=== PATIENT | female | born 1930 | race Caucasian/White ===

== ENCOUNTER 2017-05-15 10:57 | Observation (INO) ==
[2017-05-15] MEDS ORDERED: Ipratropium/Albuterol Neb 3 ML IH ONE (11:18)
--- NOTE | 2017-05-15 11:22 | Emergency Department Note ---
Disposition Clinical Impression: Acute exacerbation of chronic obstructive airways disease Disposition: Admitted As Inpatient Condition: Undetermined Referrals: Ian Muse Jr, MD [Primary Care Provider] - Forms: ED Satisfaction Letter Time of Disposition: 15:00 SOB HPI - General Chief Complaint: ED Shortness of Breath/Dyspnea Stated Complaint: MAT, weakness Time Seen by Provider: 05/15/17 11:11 Source: patient Mode of arrival: wheelchair Limitations: no limitations Nursing Notes Reviewed: Yes Vital Signs Reviewed: Yes - History of Present Illness 86-year-old female history of COPD, CAD, arrives [facility] emergency department complaining of difficulty breathing and generalized weakness that started 3-4 days ago but acutely worsened this morning. The patient's granddaughter states that while going up to her house the patient I want to get out of bed. Patient states she has continued to experience difficulty in breathing since then. She is on room air at 91%. She has been using her albuterol inhalers as prescribed but states that she has been using a more over the past few days. The patient denies any active chest pain, nausea, vomiting, abdominal pain, focalized weakness. She denies any fevers at home. The patient was noted to have pneumonia in the past and was septic when she came to the emergency department. The granddaughter states that she is worried that this is similar to when she first came here. The patient's granddaughter states that she wanted to catch it early. The patient denies any other complaints at this time other than a mild amount of dyspnea. The patient is not tachycardic, is afebrile, mildly hypoxic on room air. Pt Subjective Complaint: shortness of breath Onset (ago): day(s) (2-3 but acutely worsened this AM) Severity: mild Consistency/Duration: constant Improves with: nothing Worsens with: nothing Known history of: COPD, asthma, congestive heart failure Associated symptoms: Reports: denies other symptoms Treatment prior to arrival: none Cough present: No Sputum production: No - Related Data Home oxygen amount: none Allergies Allergy/AdvReac Type Severity Reaction Status Date / Time No Known Allergies Allergy Verified 05/15/17 11:02 All systems ED: reviewed and negative except as stated. Constitutional: Reports: weakness. Denies: fever, chills Cardiovascular: Denies: chest pain, palpitations, dyspnea on exertion, edema, syncope Respiratory: Reports: dyspnea. Denies: cough, wheezes, hemoptysis, stridor Gastrointestinal: Reports: diarrhea (Baseline). Denies: abdominal pain, nausea , vomiting, constipation, hematemesis, melena, hematochezia Genitourinary: Denies: dysuria, frequency, hematuria, discharge Musculoskeletal: Denies: back pain, neck pain, arthralgia, myalgia Neurological: Denies: headache, weakness, numbness, paresthesias, confusion, abnormal gait, vertigo Past Medical History - Past Medical History Attestation: Yes The following information was validated with the patient. Source: patient, old records reviewed, obtained from family Medical history: Reports: COPD, GERD, hyperlipidemia, hypertension, osteoporosis Surgical history: Reports: cataract Psychiatric history: Reports: no psych history - Social History Smoking Status: Former smoker Smokeless Tobacco Status: No Alcohol use: Reports: none Drug use: Reports: none Physical Exam - General Limitations: no limitations General appearance: alert, in no apparent distress - Head Head exam: atraumatic, normocephalic, normal inspection - Neck Neck exam: Present: normal inspection, full ROM, trachea midline - Chest Chest inspection: Present: normal inspection, symmetric chest wall rise - Respiratory Respiratory exam: Present: other (Decreased and coarse breath sounds) - Cardiovascular Cardiovascular exam: Present: regular rate, normal rhythm, normal heart sounds - Abdominal Exam Abdominal exam: Present: soft, Non-Tender. Absent: tenderness, distention, guarding, rebound, rigidity - Extremities Exam Extremities exam: Present: normal inspection, full ROM. Absent: tenderness, pedal edema - Neurological Exam Neurological exam: Present: alert, oriented X3 - Skin Skin exam: Present: warm, dry, intact, normal color Course Vital Signs Temperature 98.3 F 05/15/17 11:02 Pulse Rate 91 05/15/17 11:02 Respiratory Rate 20 05/15/17 11:02 Blood Pressure 200/105 05/15/17 11:02 O2 Sat by Pulse Oximetry 92 05/15/17 11:02 Temperature 98.3 F 05/15/17 11:02 Pulse Rate 92 05/15/17 14:00 Respiratory Rate 18 05/15/17 14:00 Blood Pressure 159/77 05/15/17 14:00 O2 Sat by Pulse Oximetry 94 05/15/17 14:00 Oxygen Delivery Oxygen Delivery Room Air Shortness of Breath/Dyspnea - MDM Narrative Medical decision making narrative: Appearing the emergency department consistent with COPD exacerbation. The patient was ambulated and dropped to 87% on room air. She does not wear oxygen at home. Given the patient's weakness and living situation combined with hypoxia we will admit the patient to the hospital for further workup. Patient did receive prednisone and is feeling better overall but we are concerned about setting the patient home without oxygen at this time. Accepted by Dr. Simental. - Lab Data Lab results reviewed: Yes I reviewed the patient's lab results. Result diagrams: 05/15/17 11:30 05/15/17 11:30 Lab Results 05/15/17 05/15/17 05/15/17 Range/Units 11:30 11:30 11:30 WBC 4.4 (4.3-11.1) K/mcL RBC 4.14 (3.82-4.97) M/mcL Hgb 13.9 (11.5-15.4) g/dL Hct 42.2 (35.3-44.9) % MCV 101.9 H (83.0-100.0) fL MCH 33.6 H (28.0-33.3) pg MCHC 32.9 (31.6-35.5) g/dL RDW 13.0 (11.5-14.5) % Plt Count 260 (140-400) K/mcL MPV 9.3 L (9.4-12.4) fL Immature Gran % 0.2 (0-4) % Seg Neutrophils % 69.4 % Lymphocytes % 22.7 % Monocytes % 6.1 % Eosinophils % 0.7 % Basophils % 0.9 % Neutrophils # 3.1 (1.6-8.9) K/mcL Lymphocytes # 1.0 (0.6-4.6) K/mcL Monocytes # 0.3 (0.0-1.3) K/mcL Eosinophils # 0.0 (0.0-0.6) K/mcL Basophils # 0.0 (0.0-0.2) K/mcL D-Dimer (0-500) ng/mLFEU Sodium 139 (136-145) mEq/L Potassium 4.2 (3.5-4.5) mEq/L Chloride 103 (98-109) mEq/L Carbon Dioxide 29 (19-29) mEq/L BUN 18 (7-20) mg/dL Creatinine 0.74 (0.57-1.11) mg/dL Est GFR ( Amer) > 60 (> 60) Est GFR (Non-Af Amer) > 60 (> 60) BUN/Creatinine Ratio 24 (6-26) Glucose 96 (70-99) mg/dL Calculated Osmolality 290 (280-300) Calcium 9.1 (8.6-10.8) mg/dL Troponin I 0.00 (0-0.03) ng/mL 05/15/17 Range/Units 11:30 WBC (4.3-11.1) K/mcL RBC (3.82-4.97) M/mcL Hgb (11.5-15.4) g/dL Hct (35.3-44.9) % MCV (83.0-100.0) fL MCH (28.0-33.3) pg MCHC (31.6-35.5) g/dL RDW (11.5-14.5) % Plt Count (140-400) K/mcL MPV (9.4-12.4) fL Immature Gran % (0-4) % Seg Neutrophils % % Lymphocytes % % Monocytes % % Eosinophils % % Basophils % % Neutrophils # (1.6-8.9) K/mcL Lymphocytes # (0.6-4.6) K/mcL Monocytes # (0.0-1.3) K/mcL Eosinophils # (0.0-0.6) K/mcL Basophils # (0.0-0.2) K/mcL D-Dimer 895 H (0-500) ng/mLFEU Sodium (136-145) mEq/L Potassium (3.5-4.5) mEq/L Chloride (98-109) mEq/L Carbon Dioxide (19-29) mEq/L BUN (7-20) mg/dL Creatinine (0.57-1.11) mg/dL Est GFR ( Amer) (> 60) Est GFR (Non-Af Amer) (> 60) BUN/Creatinine Ratio (6-26) Glucose (70-99) mg/dL Calculated Osmolality (280-300) Calcium (8.6-10.8) mg/dL Troponin I (0-0.03) ng/mL - Radiology Data Radiology results reviewed: Yes I reviewed the patient's radiology results. - EKG Data EKG attestation: Yes I reviewed and interpreted this EKG. EKG results narrative: Heart rate 87 bpm. VT interval 145 ms. QTC 373 ms. Normal axis. Normal sinus rhythm. No ST elevation or ST depression. EKG similar to EKG from 2015. No acute changes noted. Moderate amount of artifact noted on leads 1, 23 , V3. Attestation Statement - Attestation Attestation: I examined this patient and my medical decision-making was reviewed with the Resident Physician. I agree with the documented findings, disposition and treatment plan as described except to the extent set forth below. SOB w unimpressive pulmonary exam (scattered rhonchi), no chest pain, extreme fatigue. Broad work up initiated by Dr. Connor appropriate due to vague and potentially dangerous symptoms in frail, elderly patient. EKG/troponin negative , D-dimer just above age-adjusted cutoff, CTA performed and negative. Sx improved after nebs, but hypoxic with minimal movement. Admission warranted.
[2017-05-15 11:47] LABS: Basophils % 0.9 %; Eosinophils % 0.7 %; Hematocrit 42.2 % (35.3-44.9); Hemoglobin 13.9 g/dL (11.5-15.4); Immature Granulocytes % 0.2 % (0-4); Lymphocytes % 22.7 %; Mean Corpuscular HGB Conc 32.9 g/dL (31.6-35.5); Mean Corpuscular Hemoglobin 33.6 pg (28.0-33.3); Mean Corpuscular Volume 101.9 fL (83.0-100.0); Mean Platelet Volume 9.3 fL (9.4-12.4); Monocytes # 0.3 K/mcL (0.0-1.3); Monocytes % 6.1 %; Neutrophils # 3.1 K/mcL (1.6-8.9); Platelet Count 260 K/mcL (140-400); Red Blood Count 4.14 M/mcL (3.82-4.97); Segmented Neutrophils % 69.4 %
[2017-05-15 11:58] LABS: BUN/Creatinine Ratio 24 (6-26); Blood Urea Nitrogen 18 mg/dL (7-20); Calcium 9.1 mg/dL (8.6-10.8); Carbon Dioxide 29 mEq/L (19-29); Chloride 103 mEq/L (98-109); Glucose 96 mg/dL (70-99); Osmolality,Calculated 290 (280-300); Potassium 4.2 mEq/L (3.5-4.5); Sodium 139 mEq/L (136-145); eGFR For African Americans > 60 (> 60); eGFR For Non-African Americans > 60 (> 60)
[2017-05-15] MEDS ORDERED: predniSONE 20 MG TABLET PO ONE (12:43)
[2017-05-15] MEDS ORDERED: Acetaminophen 325 MG TABLET PO PRN (16:17)
[2017-05-15] MEDS ORDERED: Naloxone 0.4 MG/ML INJ IVP PRN (16:17)
[2017-05-15] MEDS ORDERED: Artificial Tears SOLN 15 ML BOTTLE BOTH EYES PRN (16:18)
[2017-05-15] MEDS ORDERED: *HR* HYDROcodone/Acet 7.5/325 mg TABLET PO PRN (16:18)
[2017-05-15] MEDS ORDERED: Albuterol 2.5 MG/3 ML NEBULIZER IH PRN (16:20)
--- NOTE | 2017-05-15 16:29 | Internal Med History&Physical ---
<Henrietta Chaparro M - Last Filed: 05/15/17 17:02> Date of Encounter: 05/15/17 Time of Encounter: 16:23 Assessment and Plan (1) Acute exacerbation of chronic obstructive airways disease Current visit: Yes Status: Acute Patient reporting fatigue, increased shortness of breath, and dry cough. CXR shows no acute process. CTA of the chest shows no acute pulmonary embolus, diffuse emphysematous changes, and no acute abnormality. Patient's oxygen saturation drops to the 80's on ambulation. duoneb treatments QID albuterol nebulizer Q2hr PRN Solu-medrol 40mg IVP BID titrate oxygen to maintain saturation > 92% (2) Hypoxia Current visit: Yes Status: Acute Patient's oxygen saturation drops with activity. She is in the 90s at rest and de-sats to the 80s. Will treat COPD exacerbation with steroids, bronchodilators titrate oxygen to maintain saturation > 92% (3) Hypertension Current visit: Yes Status: Acute Continue home medications. Hydralazine PRN. Qualifiers: Hypertension type: essential hypertension Qualified Code(s): I10 - Essential (primary) hypertension (4) DVT prophylaxis Current visit: Yes Status: Acute anti-embolic stockings lovenox 40mg SQ daily Internal Medicine - H&P: HPI Chief complaint: COPD exacerbation Admitted From: Emergency Dept Plans for Post Hospital Care: Home History of present illness: Ms. Hu is a 86 year old female with hypertension, hyperlipidemia, GERD, COPD presents to the emergency department with worsening shortness of breath. Patient reports that over the last couple of days she has experienced worsening shortness of breath exacerbated by activity. She is also experiencing fatigue, chills and sweats, and a 12 hour period of diarrhea which she reports is now resolved. She denies any headache, lightheadedness, chest pain, palpitations. She reports a dry cough, which is nonproductive. She denies any nausea, vomiting, abdominal pain. She denies any fever. Evaluation in the emergency department included a chest x-ray which showed no acute process, white blood cell count was normal at 4.4, troponin was normal at 0.00. D-dimer was mildly elevated for her age at age 89 so his CTA was performed. The CTA showed no acute pulmonary embolism, diffuse emphysematous changes, no acute abnormality in the chest. Oxygen saturation was in the 90s at rest, however she desatted mallwalking to 87%. On exam, patient alert and oriented, in no acute distress. Heart has regular rate and rhythm, lungs with scattered crackles. Abdomen is soft, nontender, with normal bowel sounds. Past Med Surg Social Fam HX - Past Medical History Medical history: COPD, GERD, hyperlipidemia, hypertension, osteoporosis Psychiatric history: no psych history - Past Surgical History Surgical History: cataract, orthopedic, other (carpal tunnel) - Social History Smoking Status: Former smoker Smokeless Tobacco Status: No Alcohol use: none Drug use: none - Family History Father Living Status: Cause of : cancer Hx Family Cancer: Yes Internal Medicine - H&P: Meds Albuterol Sulfate [Proair Hfa] 2 puff IH Q4H PRN 05/15/17 [History] Aspirin 81 mg PO DAILY 05/15/17 [History] Calcium Carbonate [Calcium] 500 mg PO BID 05/15/17 [History] Cyanocobalamin (Vitamin B-12) [Vitamin B12] 1,000 mcg PO DAILY 05/15/17 [History ] Fluticasone Propionate Nasal [Flonase] 1 spray NS DAILY 05/15/17 [History] Folic Acid 1 mg PO DAILY 05/15/17 [History] HYDROcodone/Acet 7.5/325 mg [[place] 7.5-325 mg] 1 tab PO Q4H PRN 05/15/17 [ History] Multivitamin [Multi-Day Vitamins] 1 tab PO DAILY 05/15/17 [History] Naproxen Sodium [Aleve] 220 - 440 mg PO BID PRN 05/15/17 [History] Omeprazole [PriLOSEC] 20 mg PO DAILY 05/15/17 [History] Propylene Glycol/Peg 400 [Systane 0.3-0.4% Eye Drops] 1 drop BOTH EYES PRN PRN 05/15/17 [History] Simvastatin [Zocor] 10 mg PO DAILY 05/15/17 [History] Zoledronic Acid (Reclast) [Reclast Premix 5 MG/100 ML] 5 mg IV [id number] [History] Allergies No Known Allergies Allergy (Verified 05/15/17 11:02) All Systems PM: A 10-system review of systems was performed and is negative for pertinent findings except as documented above in the HPI. - Constitutional Constitutional: chills, fatigue, no fever(s), no night sweats - EENT Eyes: no change in vision, no discharge, no pain, no photophobia Ears: no ear discharge, no ear pain, no tinnitus Nose, mouth and throat: no dysphagia, no nasal discharge, no neck pain, no sore throat - Cardiovascular Cardiovascular ROS IM: dyspnea, dyspnea on exertion, no chest pain, no diaphoresis, no lightheadedness, no palpitations, no syncope - Respiratory Respiratory: cough, dyspnea, dyspnea on exertion, wheezing, no excessive phlegm production - Gastrointestinal Gastrointestinal: no abdominal pain, no diarrhea, no hematemesis, no hematochezia, no melena, no nausea, no vomiting - Genitourinary Genitourinary: no change in urinary stream, no dysuria, no flank pain, no hematuria - Musculoskeletal Musculoskeletal ROS IM: no numbness, no tingling - Integumentary Integumentary IM: no rash, no unusual bruising - Neurological Neurological ROS: no confusion, no convulsions, no focal weakness, no numbness, no tingling, no tremor(s) - Hematologic/Lymphatic Hematologic/Lymphatic: no easy bruising - Constitutional Vitals: Temp Pulse Resp BP Pulse Ox 98.3 F 99 18 130/57 94 05/15/17 11:02 05/15/17 15:26 05/15/17 15:54 05/15/17 15:54 05/15/17 15:26 General appearance: Present: A&O X 3, pleasant, no acute distress - Head Head exam: Present: atraumatic, normocephalic - Eye Eye exam: Present: PERRL, conjuntiva pink, sclera anicteric Pupils: Present: PERRL - Neck Neck exam general surgery: Present: supple, trachea midline. Absent: lymphadenopathy - Respiratory Respiratory exam: Present: rales (scattered). Absent: accessory muscle use, rhonchi, wheezes - Cardiovascular Cardiovascular exam: Present: RRR, +S1, +S2. Absent: diastolic murmur, gallop, rubs, systolic murmur - GI/Abdominal GI/Abdominal exam: Present: normal bowel sounds, soft, no peritoneal signs. Absent: distended, tenderness - Extremities Exam Extremities exam: Present: warm, radial pulses palpable and symetrical. Absent : calf tenderness, cyanotic, pedal edema - Neurological Exam Neurological exam: Present: CN II-XII intact, oriented X3, no focal deficits. Absent: facial droop, speech deficit - Skin Skin exam: Present: dry, intact Internal Med - H&P Results - Labs CBC & Chem 7: 05/15/17 11:30 05/15/17 11:30 Labs: All Lab Results (24 Hours) 05/15/17 05/15/17 05/15/17 Range/Units 11:30 11:30 11:30 WBC 4.4 (4.3-11.1) K/mcL RBC 4.14 (3.82-4.97) M/mcL Hgb 13.9 (11.5-15.4) g/dL Hct 42.2 (35.3-44.9) % MCV 101.9 H (83.0-100.0) fL MCH 33.6 H (28.0-33.3) pg MCHC 32.9 (31.6-35.5) g/dL RDW 13.0 (11.5-14.5) % Plt Count 260 (140-400) K/mcL MPV 9.3 L (9.4-12.4) fL Immature Gran % 0.2 (0-4) % Seg Neutrophils % 69.4 % Lymphocytes % 22.7 % Monocytes % 6.1 % Eosinophils % 0.7 % Basophils % 0.9 % Neutrophils # 3.1 (1.6-8.9) K/mcL Lymphocytes # 1.0 (0.6-4.6) K/mcL Monocytes # 0.3 (0.0-1.3) K/mcL Eosinophils # 0.0 (0.0-0.6) K/mcL Basophils # 0.0 (0.0-0.2) K/mcL D-Dimer (0-500) ng/mLFEU Sodium 139 (136-145) mEq/L Potassium 4.2 (3.5-4.5) mEq/L Chloride 103 (98-109) mEq/L Carbon Dioxide 29 (19-29) mEq/L BUN 18 (7-20) mg/dL Creatinine 0.74 (0.57-1.11) mg/dL Est GFR ( Amer) > 60 (> 60) Est GFR (Non-Af Amer) > 60 (> 60) BUN/Creatinine Ratio 24 (6-26) Glucose 96 (70-99) mg/dL Calculated Osmolality 290 (280-300) Calcium 9.1 (8.6-10.8) mg/dL Troponin I 0.00 (0-0.03) ng/mL 05/15/17 Range/Units 11:30 WBC (4.3-11.1) K/mcL RBC (3.82-4.97) M/mcL Hgb (11.5-15.4) g/dL Hct (35.3-44.9) % MCV (83.0-100.0) fL MCH (28.0-33.3) pg MCHC (31.6-35.5) g/dL RDW (11.5-14.5) % Plt Count (140-400) K/mcL MPV (9.4-12.4) fL Immature Gran % (0-4) % Seg Neutrophils % % Lymphocytes % % Monocytes % % Eosinophils % % Basophils % % Neutrophils # (1.6-8.9) K/mcL Lymphocytes # (0.6-4.6) K/mcL Monocytes # (0.0-1.3) K/mcL Eosinophils # (0.0-0.6) K/mcL Basophils # (0.0-0.2) K/mcL D-Dimer 895 H (0-500) ng/mLFEU Sodium (136-145) mEq/L Potassium (3.5-4.5) mEq/L Chloride (98-109) mEq/L Carbon Dioxide (19-29) mEq/L BUN (7-20) mg/dL Creatinine (0.57-1.11) mg/dL Est GFR ( Amer) (> 60) Est GFR (Non-Af Amer) (> 60) BUN/Creatinine Ratio (6-26) Glucose (70-99) mg/dL Calculated Osmolality (280-300) Calcium (8.6-10.8) mg/dL Troponin I (0-0.03) ng/mL - Diagnostic Studies Chest x-ray Additional comments: Chest X-Ray 05/15/17 11:18 IMPRESSION: No acute process. D/ / Dallin Torrez MD / Dallin Torrez MD Interpreting Provider: Dallin Torrez MD CT scan - chest Additional comments: Chest CTA 05/15/17 13:57 IMPRESSION: 1. Examination is negative for acute pulmonary embolism. 2. Diffuse emphysematous changes. No acute abnormalities are seen in the chest. D/ / 05/15/2017 14:42:46 Dallin Torrez MD / chidi Interpreting Provider: Dallin Torrez MD <Sheila Simental - Last Filed: 05/15/17 18:44> Date of Encounter: 05/15/17 Time of Encounter: 17:45 Internal Medicine - H&P: HPI History of present illness: Ms. Hu is a 86 year old female All Systems PM: A 10-system review of systems was performed and is negative for pertinent findings except as documented above in the HPI. - Constitutional Vitals: Temp Pulse Resp BP Pulse Ox 98.4 F 95 16 154/77 93 05/15/17 16:41 05/15/17 16:41 05/15/17 16:41 05/15/17 16:41 05/15/17 16:41 Internal Med - H&P Results - Labs CBC & Chem 7: 05/15/17 11:30 05/15/17 11:30 - Attending Attestation I examined this patient and my medical decision-making was reviewed with the nurse practitioner. I agree with the documented history of present illness, review of systems, past medical, surgical social and family histories and examination findings, disposition and treatment plan as described above except to any changes set forth below. 86-year-old female patient with history of COPD, hypertension, hyperlipidemia presented to the ER with complaints of shortness of breath. Has some dry cough without any sputum production. No fever chills or night sweats. No chest pain or palpitations. Was found to have hypoxia with ambulation. Chest x-ray does not show any infiltrates. On examination, there were minimal rhonchi bilaterally. S1 and S2 are normal. Acute COPD exacerbation with hypoxia: Treat with bronchodilators, steroids, O2 supplementation. Evaluate for home oxygen prior to discharge. Essential hypertension: Blood pressure is currently elevated. Will monitor and add low-dose antihypertensive medication if it persists.
[2017-05-15] MEDS: MethylPREDNISolone 40 MG/ML VIAL IVP SCH (17:54)
[2017-05-15] MEDS: 0.9 % Sodium Chloride 1,000 ML IVC SCH (17:54)
[2017-05-15] MEDS: Ipratropium/Albuterol Neb 3 ML IH SCH ×2 (18:30→22:20)
[2017-05-15] MEDS: Budesonide/Formoterol 160/4.5 MDI IH SCH (22:20)
[2017-05-16] MEDS: 0.9 % Sodium Chloride 1,000 ML IVC SCH (02:00)
[2017-05-16] MEDS: Ipratropium/Albuterol Neb 3 ML IH SCH ×3 (04:08→15:46)
[2017-05-16 05:25] LABS: Hematocrit 32.3 % (35.3-44.9); Immature Granulocytes % 0.5 % (0-4); Lymphocytes # 0.6 K/mcL (0.6-4.6); Lymphocytes % 14.5 %; Mean Corpuscular HGB Conc 32.5 g/dL (31.6-35.5); Mean Corpuscular Hemoglobin 33.3 pg (28.0-33.3); Mean Corpuscular Volume 102.5 fL (83.0-100.0); Mean Platelet Volume 9.7 fL (9.4-12.4); Monocytes # 0.1 K/mcL (0.0-1.3); Monocytes % 2.9 %; Neutrophils # 3.2 K/mcL (1.6-8.9); Platelet Count 200 K/mcL (140-400); Red Blood Count 3.15 M/mcL (3.82-4.97); Segmented Neutrophils % 82.1 %
[2017-05-16 05:26] LABS: Hemoglobin 10.5 g/dL (11.5-15.4)
[2017-05-16 05:39] LABS: BUN/Creatinine Ratio 28 (6-26); Blood Urea Nitrogen 19 mg/dL (7-20); Carbon Dioxide 23 mEq/L (19-29); Chloride 109 mEq/L (98-109); Glucose 103 mg/dL (70-99); Osmolality,Calculated 293 (280-300); Potassium 4.1 mEq/L (3.5-4.5); Sodium 140 mEq/L (136-145); eGFR For African Americans > 60 (> 60); eGFR For Non-African Americans > 60 (> 60)
[2017-05-16] MEDS: MethylPREDNISolone 40 MG/ML VIAL IVP SCH (06:08)
[2017-05-16 06:59] VITALS: BP 124/61
[2017-05-16] MEDS ORDERED: *HR* Enoxaparin 30 MG/0.3 ML SYRINGE SQ SCH (07:00)
[2017-05-16] MEDS ORDERED: Fluticasone Propionate Nasal 50 MCG/SPRAY BOTTLE NS SCH (09:00)
[2017-05-16] MEDS ORDERED: Aspirin 81 MG TAB.CHEW PO SCH (09:00)
--- NOTE | 2017-05-16 09:29 | Discharge Summary ---
Date of Encounter: 05/16/17 Time of Encounter: 08:20 - Discharge Diagnosis (1) Acute exacerbation of chronic obstructive airways disease Priority: Primary Status: Acute Comments: Patient was seen and assessed at 8:20 AM. She was sitting up in bed in no distress, eating breakfast. Her lungs are clear and diminished posteriorly, clear anteriorly. There is no wheezing, rhonchi, Rales, respiratory distress. She eats since the simple sentences with no distress. We will continue steroid taper at home. She is not requiring supplemental oxygen at this time. Continue normal home medications. Patient qualified for home oxygen. Sats dropped to 86-80% when ambulating without oxygen. Patient initially declined because she said she did not want it in her house and did not know where she was going to put it. Primary nurse encouraged her, patient now has prescription for home O2 and is being set up by social worker clinical. (2) Hypertension Priority: Secondary Status: Acute Comments: Chronic. Well controlled. Continue home medications. Qualifiers: Hypertension type: essential hypertension Qualified Code(s): I10 - Essential (primary) hypertension (3) Hypoxia Priority: Secondary Status: Acute Comments: Patient is requiring supplemental oxygen at this time. Room air sats are 96-97 % on room air. (4) DVT prophylaxis Priority: Secondary Status: Acute Comments: Lovenox subcutaneous JARAD hose area - Discharge Medications Prescriptions: predniSONE [PredniSONE] 10 mg PO DAILY #24 tablet Home Medications: Albuterol Sulfate [Proair Hfa] 2 puff IH Q4H PRN 05/15/17 [History] Aspirin 81 mg PO DAILY 05/15/17 [History] Calcium Carbonate [Calcium] 500 mg PO BID 05/15/17 [History] Cyanocobalamin (Vitamin B-12) [Vitamin B12] 1,000 mcg PO DAILY 05/15/17 [History ] Fluticasone Propionate Nasal [Flonase] 1 spray NS DAILY 05/15/17 [History] Folic Acid 1 mg PO DAILY 05/15/17 [History] HYDROcodone/Acet 7.5/325 mg [[place] 7.5-325 mg] 1 tab PO Q4H PRN 05/15/17 [ History] Multivitamin [Multi-Day Vitamins] 1 tab PO DAILY 05/15/17 [History] Naproxen Sodium [Aleve] 220 - 440 mg PO BID PRN 05/15/17 [History] Omeprazole [PriLOSEC] 20 mg PO DAILY 05/15/17 [History] Propylene Glycol/Peg 400 [Systane 0.3-0.4% Eye Drops] 1 drop BOTH EYES PRN PRN 05/15/17 [History] Simvastatin [Zocor] 10 mg PO DAILY 05/15/17 [History] Zoledronic Acid (Reclast) [Reclast Premix 5 MG/100 ML] 5 mg IV [id number] [History] predniSONE [PredniSONE] 10 mg PO DAILY #24 tablet 05/16/17 [Rx] Allergies/Adverse Reactions: Allergies No Known Allergies Allergy (Verified 05/15/17 11:02) Date of admission: 05/15/17 15:25 Primary care physician: Ian Muse Jr, MD Discharging clinician: Janett Garcia Anticipated date of discharge: 05/16/17 - Patient Status Disposition: Home, Self-Care Condition: Good Functional capacity at discharge: independent ambulation Overall status at discharge: patient is progressing back to baseline - Discharge Instructions Follow Up With: Ian Muse Jr, MD [Primary Care Provider] - Additional Instructions: Please follow-up with your primary care physician in the next 7-10 days for hospital follow-up visit. Take her steroids as directed until they are gone. Continue home medications Do not be outside during the heat of the day Return to the emergency department for any new or concerning symptoms. - Diet and Activity Activity: increase activity as tolerated Diet: advance to your usual diet Hospital course: Ms. Hu is a 86 year old female with past medical history of hypertension, hyperlipidemia, GERD, COPD presented to the emergency department with worsening shortness of breath. She reports over last couple of days she has experienced worsening shortness of breath with exertion. She is experiencing fatigue, chills, sweats, 12 hour period of diarrhea which resolved. Chest x-ray was negative, there is no leukocytosis, troponin was negative. D-dimer level was mildly elevated to CTA was done and no acute pulmonary embolism. There are diffuse emphysematous changes, no other acute abnormality. Her oxygen saturation was 96-97% this morning at rest on room air. Sats dropped to 86-88% with exertion. She qualified for oxygen and is being set up by social worker clinical. She was initially resistant because she did not want it in her home, but after encouragement she now has prescription is being set up by [facility]. Her physical exam is completely unremarkable. Her vital signs are stable. She is anxious to go home. She is ready for discharge. - Time Spent with Patient Total time spent providing and/or coordinating discharge services: Less than 30 minutes - Constitutional Vitals: Temp Pulse Resp BP Pulse Ox 97.7 F 74 16 124/61 91 05/16/17 06:58 05/16/17 06:58 05/16/17 06:58 05/16/17 06:58 05/16/17 06:58 General appearance: Present: A&O X 3, pleasant, no acute distress, answers questions appropriately - Head Head exam: Present: normal inspection - Eye Eye exam: Present: normal appearance, conjuntiva pink - ENT ENT exam: Present: mucous membranes moist, normal exam - Neck Neck exam general surgery: Present: normal inspection. Absent: lymphadenopathy , tenderness - Respiratory Respiratory exam: Present: decreased breath sounds, CTAB, stridor. Absent: chest wall tenderness, prolonged expiratory phase, rales, respiratory distress, rhonchi, wheezes - Cardiovascular Cardiovascular exam: Present: RRR, +S1, +S2. Absent: diastolic murmur, systolic murmur - GI/Abdominal GI/Abdominal exam: Present: normal bowel sounds, soft. Absent: distended, hepatomegaly, tenderness - Extremities Exam Extremities exam: Present: normal capillary refill, warm, radial pulses palpable and symetrical. Absent: pedal edema, tenderness - Neurological Exam Neurological exam: Present: alert, oriented X3. Absent: facial droop, speech deficit - Skin Skin exam: Present: dry, intact, normal color, warm
[2017-05-16] MEDS: Budesonide/Formoterol 160/4.5 MDI IH SCH (11:19)
--- NOTE | 2017-05-17 09:29 | Electrocardiograph Report ---
[place] [id number] Test Date: 2017-05-15 Pat Name: Isaura Hu Department: 103 Room: 3B13 Gender: F Airline Ticket Agent: : [id number] Requested By: Dallin Woodward Order Number: [id number] Reading MD: Chrissy Garcia Measurements Intervals [place] Rate: 87 P: 49 DE: 145 QRS: 35 QRSD: 84 T: 9 QT: 329 QTc: 373 Interpretive Statements SINUS RHYTHM NONSPECIFIC ST-T ABNORMALITIES Electronically Signed On 05-17-2017 9:27:43 EDT by Chrissy Garcia
== END 2017-05-16 17:27 | disposition home or self-care (01) ==
LOC: EMEROO 10:57 → 3BNU 10:57
PROVIDERS: ADMIT Internal Medicine; ATTEND Registered Nurse

== ENCOUNTER 2018-03-20 12:24 | Observation (INO) ==
--- NOTE | 2018-03-20 12:55 | Emergency Department Note ---
Disposition Clinical Impression: Diverticulitis Chest pain Qualifiers: Chest pain type: unspecified Qualified Code(s): R07.9 - Chest pain, unspecified Abdominal pain Qualifiers: Abdominal location: generalized Qualified Code(s): R10.84 - Generalized abdominal pain Pneumonia Qualifiers: Pneumonia type: due to unspecified organism Laterality: unspecified laterality Lung location: unspecified part of lung Qualified Code(s): J18.9 - Pneumonia, unspecified organism Disposition: Admitted As Inpatient Condition: Good Time of Disposition: 16:15 General Adult HPI - General Stated complaint: pain all over Time Seen by Provider: 03/20/18 12:30 Source: patient, family, EMS Limitations: no limitations Nursing Notes Reviewed: Yes Vital Signs Reviewed: Yes - History of Present Illness HPI Narrative: Ms. Hu is a very pleasant 87-year-old female with a past history of COPD, hypertension, hyperlipidemia, severe osteoporosis, GERD and febrile myalgia presents to the [facility] emergency department with a chief complaint of "pain all over ". Patient is a poor historian and much of this history of present illness was generated from EMR review and family present. Patient has a partly suffered numerous fractures are her severe osteoporosis. She is currently being followed by pain management here at [place] recently underwent a epidural injection. Patient has been unable to eat in the last 2 days. She is complaining of nausea without any vomiting. Family states that the symptoms started roughly 2 days ago. Prior to this patient is an with or with use of a cane. She is non-ambulatory since then. Reporting sternal chest pain and reproducible in addition to epigastric abdominal pain. Unable to determine if this is exertional. She denies any diaphoresis or radiation. Patient denies any new shortness of breath, change in bowel habits or abdominal pain. Patient was recently admitted to the [facility] back on 01/20/18 for COPD exacerbation. Patient received IV steroids and antibiotics was discharged home with home health follow-up. Patient was alone. Patient is an ex-smoker. She is 2L oxygen dependent at all times. No other complaints at this time. Pain Scale: 9 - Related Data Home Medications Medication Instructions Recorded Confirmed Albuterol Sulfate [Proair Hfa] 2 puff IH Q4H PRN 05/15/17 01/20/18 Aspirin 81 mg PO DAILY 05/15/17 01/20/18 Calcium Carbonate [Calcium] 1,000 mg PO DAILY 05/15/17 01/20/18 Fluticasone Propionate Nasal 1 spray NS DAILY 05/15/17 01/20/18 [Flonase] HYDROcodone/Acet 7.5/325 mg [[place] 1 tab PO Q4H PRN 05/15/17 01/20/18 7.5-325 mg] Multivitamin [Multi-Day Vitamins] 1 tab PO DAILY 05/15/17 01/20/18 Naproxen Sodium [Aleve] 220 - 440 mg PO BID PRN 05/15/17 01/20/18 Omeprazole [PriLOSEC] 20 mg PO DAILY 05/15/17 01/20/18 Propylene Glycol/Peg 400 [Systane 1 drop BOTH EYES Q6H PRN 05/15/17 01/20/18 0.3-0.4% Eye Drops] Simvastatin [Zocor] 10 mg PO HS 05/15/17 01/20/18 Zoledronic Acid (Reclast) [Reclast 5 mg IV [id number] 05/15/17 01/20/18 Premix 5 MG/100 ML] Docusate [Colace] 100 mg PO BID PRN 01/20/18 01/20/18 Furosemide [Lasix] 20 mg PO DAILY 01/20/18 01/20/18 Oxygen 2 l NS AD 01/20/18 01/20/18 Allergies Allergy/AdvReac Type Severity Reaction Status Date / Time No Known Allergies Allergy Verified 03/20/18 16:05 Review of Systems: As Per HPI Past Medical History - Past Medical History Medical history: Reports: COPD, fibromyalgia, GERD, hyperlipidemia, hypertension , osteoporosis Surgical history: Reports: cataract Psychiatric history: Reports: no psych history - Social History Smoking Status: Former smoker Smokeless Tobacco Status: No Alcohol use: Reports: none Drug use: Reports: none Physical Exam CONSTITUTIONAL: Alert and cachetic appearing in no apparent distress HEAD: Normocephalic; atraumatic. SPINE: TTP throught midline and paraspinal to all levels EYES: PERRLA no scleral icterus, no drainage, no conjunctival injection Oropharynx: pink/moist RESP: NRD without use of accessory musculature, CTA b/l with no wheezes/rales/ rhonchi CARD: Regular rhythm, loud YAN ABD: grossly normal, soft, TTP to epigastric and SP region, no guarding/ distention/rigidity EXT: DP/Rad pulses 2+ and symmetrical; no lateralizing edema; no other lesions seen - General Limitations: no limitations General appearance: alert Course Course Narrative: Patient was seen and examined at bedside with family present. Vital signs reviewed and were unremarkable. Physical examination demonstrates a very cachectic appearing individual that is complaining of pain all over. Palpation to her sternum is reproducible as well as tenderness to palpation about her epigastric and superpubic regions. Patient is complaining of pain with palpation to midline over cervical/thoracic/lumbar region as well as all her paraspinal musculature. Patient does not have any lateralizing edema in her lower extremities. She denies any specific tenderness to palpation to her lower extremities as well. Patient is on any blood thinners. She does live alone and was [facility] and laboratory 2 days ago. She denies any history of fall. We will begin workup with CT of the chest, cervical spine, Rezek spine and CT of the abdomen and pelvis. Will obtain urinalysis, CBC, CMP, troponin, twelve-lead EKG. Pain control be administered. In addition we will obtain a DVT study of the bilateral lower extremities. Disposition pending. 1530: Positive workup for the blood work shows a mild leukocytosis of 12.5. No other at [place] seen on CBC, CMP, troponin, urinalysis. Extensive imaging demonstrates presence of infectious process in the right lower lobe and lingula left upper lobe. In addition there is suspicion of low-grade diverticulitis in the descending and sigmoid colon. Patient will be started on IV fluids, Zosyn and vancomycin. Blood cultures were drawn. Disposition and plan were discussed with patient and family understand and agree. All bursa concerns were addressed. Patient will be admitted for pneumonia and diverticulitis due to the high likelihood of outpatient failure given her recent immobility. Hospitalist will be paged. [id number]: Spoke with hospitalist who will admit this patient for diverticulitis and pneumonia. No further recommendations per hospital team. Vital Signs Temperature 97.7 F 03/20/18 12:31 Pulse Rate 72 03/20/18 12:31 Respiratory Rate 16 03/20/18 12:31 Blood Pressure 156/78 03/20/18 12:31 O2 Sat by Pulse Oximetry 98 03/20/18 12:31 Temperature 97.7 F 03/20/18 12:31 Pulse Rate 72 03/20/18 12:31 Respiratory Rate 16 03/20/18 12:31 Blood Pressure 156/78 03/20/18 12:31 O2 Sat by Pulse Oximetry 98 03/20/18 12:31 Oxygen Delivery Oxygen Delivery Nasal Cannula Medical Decision Making - Medical Records Medical records reviewed: Yes I reviewed the patient's medical records. - Lab Data Lab results reviewed: Yes I reviewed the patient's lab results. Result diagrams: 03/20/18 13:16 03/20/18 13:16 Lab Results 03/20/18 03/20/18 03/20/18 Range/Units 13:16 13:16 14:46 WBC 12.5 H (4.3-11.1) K/mcL RBC 3.03 L (3.82-4.97) M/mcL Hgb 10.0 L (11.5-15.4) g/dL Hct 32.1 L (35.3-44.9) % MCV 105.9 H (83.0-100.0) fL MCH 33.0 (28.0-33.3) pg MCHC 31.2 L (31.6-35.5) g/dL RDW 15.2 H (11.5-14.5) % Plt Count 359 (140-400) K/mcL MPV 9.1 L (9.4-12.4) fL Immature Gran % 0.3 (0-4) % Seg Neutrophils % 88.0 % Lymphocytes % 7.3 % Monocytes % 4.1 % Eosinophils % 0.2 % Basophils % 0.1 % Neutrophils # 11.0 H (1.6-8.9) K/mcL Lymphocytes # 0.9 (0.6-4.6) K/mcL Monocytes # 0.5 (0.0-1.3) K/mcL Eosinophils # 0.0 (0.0-0.6) K/mcL Basophils # 0.0 (0.0-0.2) K/mcL Sodium 139 (136-145) mEq/L Potassium 4.1 (3.5-5.1) mEq/L Chloride 104 (98-107) mEq/L Carbon Dioxide 32 H (23-29) mEq/L BUN 24 H (8-23) mg/dL Creatinine 0.60 (0.60-1.20) mg/dL Est GFR ( Amer) > 60 (> 60) Est GFR (Non-Af Amer) > 60 (> 60) BUN/Creatinine Ratio 40 H (6-26) Glucose 96 (70-105) mg/dL Calculated Osmolality 292 (280-300) Calcium 8.3 L (8.6-10.3) mg/dL Total Bilirubin 0.4 (0.3-1.0) mg/dL AST 21 (13-39) Units/L ALT 11 (7-52) Units/L Alkaline Phosphatase 93 (34-104) Units/L Troponin I < 0.03 (< 0.04) ng/mL Serum Total Protein 5.2 L (6.4-8.9) g/dL Albumin 2.7 L (3.5-5.7) g/dL Globulin 2.5 (2.4-3.5) g/dL Albumin/Globulin Ratio 1.1 (1.1-2.2) Urine Color Yellow (Yellow) Urine Clarity Clear (Clear) Urine pH 7.5 (5.0-8.0) pH Units Ur Specific [place] 1.028 H (1.010-1.025) Urine Protein Negative (Neg-Trace) mg/dL Urine Glucose (UA) Normal (Normal) mg/dL Urine Ketones Negative (Negative) mg/dL Urine Blood Negative (Negative) Urine Nitrite Negative (Negative) Urine Bilirubin Negative (Negative) Urine Urobilinogen Normal (Normal) mg/dL Ur Leukocyte Esterase Negative (Negative) Ur Culture Indicated? NO (NO) - Radiology Data Radiology results reviewed: Yes I reviewed the patient's radiology results. - EKG Data EKG #1 EKG attestation: Yes I reviewed and interpreted this EKG. EKG results narrative: Heart rate 74, MS 145, QRS 73, QTC 378 consistent with normal sinus rhythm. There are no new ischemic changes seen. This EKG was compared to previous that was performed on 01/20/2018. Attestation Statement - Attestation Attestation: I, Sancho Medina DO, examined this patient [id number] and my medical decision-making was reviewed with Sl[place] PGY-1, Resident Physician. I agree with the documented findings, disposition and treatment plan as described except to the extent set forth below. Please see my progress notes for details.
[2018-03-20] MEDS ORDERED: *HR* OxyCODONE/APAP 5/325 TABLET PO ONE (13:04)
--- NOTE | 2018-03-20 13:08 | Emergency Department Note ---
Disposition Clinical Impression: Chest pain, Abdominal pain, Diverticulitis, Pneumonia Disposition: Admitted As Inpatient Condition: Fair Referrals: Ian Muse Jr, MD [Primary Care Provider] - Time of Disposition: 16:01 General Adult HPI - General Chief complaint: ED Chest Pain Stated complaint: pain all over Time Seen by Provider: 03/20/18 12:30 Source: patient, family, EMS Limitations: no limitations - History of Present Illness Pain Scale: 9 - Related Data Home Medications Medication Instructions Recorded Confirmed Albuterol Sulfate [Proair Hfa] 2 puff IH Q4H PRN 05/15/17 01/20/18 Aspirin 81 mg PO DAILY 05/15/17 01/20/18 Calcium Carbonate [Calcium] 1,000 mg PO DAILY 05/15/17 01/20/18 Fluticasone Propionate Nasal 1 spray NS DAILY 05/15/17 01/20/18 [Flonase] HYDROcodone/Acet 7.5/325 mg [[place] 1 tab PO Q4H PRN 05/15/17 01/20/18 7.5-325 mg] Multivitamin [Multi-Day Vitamins] 1 tab PO DAILY 05/15/17 01/20/18 Naproxen Sodium [Aleve] 220 - 440 mg PO BID PRN 05/15/17 01/20/18 Omeprazole [PriLOSEC] 20 mg PO DAILY 05/15/17 01/20/18 Propylene Glycol/Peg 400 [[place] 1 drop BOTH EYES Q6H PRN 05/15/17 01/20/18 0.3-0.4% Eye Drops] Simvastatin [Zocor] 10 mg PO HS 05/15/17 01/20/18 Zoledronic Acid (Reclast) [Reclast 5 mg IV [id number] 05/15/17 01/20/18 Premix 5 MG/100 ML] Docusate [Colace] 100 mg PO BID PRN 01/20/18 01/20/18 Furosemide [Lasix] 20 mg PO DAILY 01/20/18 01/20/18 Oxygen 2 l NS AD 01/20/18 01/20/18 Previous Rx's Medication Instructions Recorded predniSONE [PredniSONE] 10 mg PO DAILY #30 tablet 01/23/18 Allergies Allergy/AdvReac Type Severity Reaction Status Date / Time No Known Allergies Allergy Verified 05/15/17 11:02 Past Medical History - Past Medical History Medical history: Reports: COPD, fibromyalgia, GERD, hyperlipidemia, hypertension , osteoporosis Surgical history: Reports: cataract Psychiatric history: Reports: no psych history - Social History Smoking Status: Former smoker Smokeless Tobacco Status: No Alcohol use: Reports: none Drug use: Reports: none Physical Exam - General Limitations: no limitations General appearance: alert Course Vital Signs Temperature 97.7 F 03/20/18 12:31 Pulse Rate 72 03/20/18 12:31 Respiratory Rate 16 03/20/18 12:31 Blood Pressure 156/78 03/20/18 12:31 O2 Sat by Pulse Oximetry 98 03/20/18 12:31 Temperature 97.7 F 03/20/18 12:31 Pulse Rate 72 03/20/18 12:31 Respiratory Rate 16 03/20/18 12:31 Blood Pressure 156/78 03/20/18 12:31 O2 Sat by Pulse Oximetry 98 03/20/18 12:31 Oxygen Delivery Oxygen Delivery Nasal Cannula Medical Decision Making - Lab Data Result diagrams: 03/20/18 13:16 03/20/18 13:16 Lab Results 03/20/18 03/20/18 03/20/18 Range/Units 13:16 13:16 14:46 WBC 12.5 H (4.3-11.1) K/mcL RBC 3.03 L (3.82-4.97) M/mcL Hgb 10.0 L (11.5-15.4) g/dL Hct 32.1 L (35.3-44.9) % MCV 105.9 H (83.0-100.0) fL MCH 33.0 (28.0-33.3) pg MCHC 31.2 L (31.6-35.5) g/dL RDW 15.2 H (11.5-14.5) % Plt Count 359 (140-400) K/mcL MPV 9.1 L (9.4-12.4) fL Immature Gran % 0.3 (0-4) % Seg Neutrophils % 88.0 % Lymphocytes % 7.3 % Monocytes % 4.1 % Eosinophils % 0.2 % Basophils % 0.1 % Neutrophils # 11.0 H (1.6-8.9) K/mcL Lymphocytes # 0.9 (0.6-4.6) K/mcL Monocytes # 0.5 (0.0-1.3) K/mcL Eosinophils # 0.0 (0.0-0.6) K/mcL Basophils # 0.0 (0.0-0.2) K/mcL Sodium 139 (136-145) mEq/L Potassium 4.1 (3.5-5.1) mEq/L Chloride 104 (98-107) mEq/L Carbon Dioxide 32 H (23-29) mEq/L BUN 24 H (8-23) mg/dL Creatinine 0.60 (0.60-1.20) mg/dL Est GFR ( Amer) > 60 (> 60) Est GFR (Non-Af Amer) > 60 (> 60) BUN/Creatinine Ratio 40 H (6-26) Glucose 96 (70-105) mg/dL Calculated Osmolality 292 (280-300) Calcium 8.3 L (8.6-10.3) mg/dL Total Bilirubin 0.4 (0.3-1.0) mg/dL AST 21 (13-39) Units/L ALT 11 (7-52) Units/L Alkaline Phosphatase 93 (34-104) Units/L Troponin I < 0.03 (< 0.04) ng/mL Serum Total Protein 5.2 L (6.4-8.9) g/dL Albumin 2.7 L (3.5-5.7) g/dL Globulin 2.5 (2.4-3.5) g/dL Albumin/Globulin Ratio 1.1 (1.1-2.2) Urine Color Yellow (Yellow) Urine Clarity Clear (Clear) Urine pH 7.5 (5.0-8.0) pH Units Ur Specific [place] 1.028 H (1.010-1.025) Urine Protein Negative (Neg-Trace) mg/dL Urine Glucose (UA) Normal (Normal) mg/dL Urine Ketones Negative (Negative) mg/dL Urine Blood Negative (Negative) Urine Nitrite Negative (Negative) Urine Bilirubin Negative (Negative) Urine Urobilinogen Normal (Normal) mg/dL Ur Leukocyte Esterase Negative (Negative) Ur Culture Indicated? NO (NO) Attestation Statement - Attestation Attestation: I, Sancho Medina DO, examined this patient [id number] and my medical decision-making was reviewed with [place] PGY-1, Resident Physician. I agree with the documented findings, disposition and treatment plan as described except to the extent set forth below. Please see my progress notes for details. 87-year-old female presents emergency room by EMS for evaluation of pain everywhere. Patient had epidural injections completed earlier this week. Patient has multiple pathologic fractures secondary to rheumatoid arthritis and osteoporosis. Patient has not fallen but since the epidural injection she said persistently worsening diffuse body pain. Patient denies any fevers or chills nausea vomiting or diarrhea. Denies any headache or vision change. Patient does appear to be uncomfortable every time she tries to move. She has a proximally 15 known fractures at this time according to her. Patient describes pain across her entire chest wall and across her chest at this time. EKG labs including CBC chemistry urine troponin will be ordered. Because of the patient' s chronic history CT imaging of the chest and abdomen along with the bony structure of the cervical thoracic and lumbar spine will be ordered at this time. Pain medication will be given by IV route. Patient will have further evaluation and management. This time ruling out any cardiac or pulmonary related source and addressing any potential new fractures or abnormalities. Patient's family is with her at the bedside and they are comfortable this plan. Patient is alert and oriented she answers questions appropriately her lungs are clear heart is regular. She just has tenderness across her entire body. Disposition pending the full workup and treatment course. See detailed documentation of the physical exam, medical intervention, medical decision- making and disposition in the resident physician's note. No critical care provider this patient's treatment course at this time 1455 Patient's labs are relatively unremarkable this point. Hemoglobin is within 0.8 abnormal. Patient's labs otherwise unremarkable this time. Imaging is still pending. Disposition will be completed at that time. Patient will give fluids here to hydrate through the IV contrasted scan. We will continue to monitor treatment course is completed. Patient is found to have slight diverticulitis along with pulmonary nodules concerning for infection. Patient will be started on vancomycin and Zosyn covering for intra-abdominal pathology as well as a pneumonia. Vital signs remain stable. Disposition will be determined once conversations or had with the patient's family. Otherwise no other acute bony abnormalities or fractures. Troponin and labs otherwise unremarkable. 1600 Patient found to have pneumonia diverticular disease. Discussion was had with the patient the family at the bedside. Admission process was recommended to this time. Patient is comfortable this plan. IV antibiotics were started along with blood cultures collected. Patient is otherwise clinically stable despite the persistent pain pneumonia and diverticulitis. Patient will be admitted to this time. Hospitals contacted no other recommendations noted or recommended from them at this point.
[2018-03-20] MEDS ORDERED: *HR* FentaNYL (PF) 100 MCG/2 ML VIAL IVP ONE (13:17)
[2018-03-20 13:22] LABS: Basophils % 0.1 %; Eosinophils % 0.2 %; Hematocrit 32.1 % (35.3-44.9); Immature Granulocytes % 0.3 % (0-4); Lymphocytes # 0.9 K/mcL (0.6-4.6); Lymphocytes % 7.3 %; Mean Corpuscular HGB Conc 31.2 g/dL (31.6-35.5); Mean Corpuscular Volume 105.9 fL (83.0-100.0); Mean Platelet Volume 9.1 fL (9.4-12.4); Monocytes # 0.5 K/mcL (0.0-1.3); Monocytes % 4.1 %; Platelet Count 359 K/mcL (140-400); Red Blood Count 3.03 M/mcL (3.82-4.97); Red Cell Distribution Width 15.2 % (11.5-14.5)
[2018-03-20] MEDS ORDERED: 0.9 % Sodium Chloride 1,000 ML ONE (13:25)
[2018-03-20 13:49] LABS: Troponin I < 0.03 ng/mL (< 0.04)
[2018-03-20 13:50] LABS: Alanine Aminotransferase 11 Units/L (7-52); Albumin 2.7 g/dL (3.5-5.7); Albumin/Globulin Ratio 1.1 (1.1-2.2); Alkaline Phosphatase 93 Units/L (34-104); Aspartate Amino Transferase 21 Units/L (13-39); BUN/Creatinine Ratio 40 (6-26); Bilirubin,Total 0.4 mg/dL (0.3-1.0); Blood Urea Nitrogen 24 mg/dL (8-23); Calcium 8.3 mg/dL (8.6-10.3); Carbon Dioxide 32 mEq/L (23-29); Chloride 104 mEq/L (98-107); Globulin 2.5 g/dL (2.4-3.5); Glucose 96 mg/dL (70-105); Osmolality,Calculated 292 (280-300); Potassium 4.1 mEq/L (3.5-5.1); Sodium 139 mEq/L (136-145); Total Protein 5.2 g/dL (6.4-8.9); eGFR For African Americans > 60 (> 60); eGFR For Non-African Americans > 60 (> 60)
[2018-03-20] MEDS ORDERED: 0.9 % Sodium Chloride 1,000 ML IVC SCH (15:00)
[2018-03-20 15:01] LABS: Bilirubin,Urine Negative (Negative); Blood,Urine Negative (Negative); Clarity,Urine Clear (Clear); Color,Urine Yellow (Yellow); Glucose,Urine (UA) Normal (Normal); Ketones,Urine Negative (Negative); Leukocyte Esterase,Urine Negative (Negative); Nitrite,Urine Negative (Negative); PH,Urine 7.5 pH Units (5.0-8.0); Protein,Urine Negative (Neg-Trace); Specific Gravity,Urine 1.028 (1.010-1.025); Urobilinogen,Urine Normal (Normal)
[2018-03-20] MEDS ORDERED: Vancomycin 500 MG in 0.9 % Sodium Chloride Mini Bag 100 ML IVPB ONE (15:31)
[2018-03-20] MEDS ORDERED: Piperacillin/Tazobactam 3.375 GM in 0.9 % Sodium Chloride Mini Bag 100 ML IVPB ONE (15:31)
[2018-03-20] MEDS ORDERED: *HR* FentaNYL (PF) 100 MCG/2 ML VIAL ONE (16:30)
[2018-03-20] MEDS: *HR* FentaNYL (PF) 100 MCG/2 ML VIAL IVP STA ×2 (16:32→16:34)
[2018-03-20] MEDS ORDERED: Acetaminophen 325 MG TABLET PO PRN (17:40)
[2018-03-20] MEDS ORDERED: Naloxone 0.4 MG/ML INJ IVP PRN (17:40)
[2018-03-20] MEDS ORDERED: Artificial Tears SOLN 15 ML BOTTLE BOTH EYES PRN (17:55)
[2018-03-20] MEDS ORDERED: [UNRECOGNIZED DRUG - OTHER] IV SCH (18:00)
[2018-03-20] MEDS ORDERED: ZOLEDRONIC ACID IV SCH (18:00)
--- NOTE | 2018-03-20 18:35 | Internal Med History&Physical ---
<[email or web address] - Last Filed: 03/20/18 20:03> Date of Encounter: 03/20/18 Time of Encounter: 17:00 Internal Medicine - H&P: HPI Chief complaint: All-over body pain Admitted From: Emergency Dept Plans for Post Hospital Care: Home History of present illness: Ms. Hu is a 87 year old female w/PMH of COPD, fibromyalgia, GERD, HLD, HTN , and osteoporosis presents from the ED with chief complaint of all over body pain. Patient reports she has had chronic pain for the past several months and reports numerous fractures and severe osteoporosis. She was seen by Dr. Garber at pain management several days ago and received epidural injection which she reports did not help. Patient also states becoming nauseous post injection with difficulty ambulating ever since. Reports sternal chest discomfort and epigastric pain. Reports reduced appetite and difficulty swallowing. States she is on chronic O2 @ home at 2L. Lives alone and is not always compliant w/medications and O2 but states she is not leaving her home for a fci. Pt. reports chest pain, abdominal pain, constipation, SOB, and nausea but denies recent illness, fever, chills, vomiting, headache, changes in vision, unusual bleeding, diarrhea, numbness, tingling, dizziness, lightheadedness, pre-syncope, or syncope. Past Med Surg Social Fam HX - Past Medical History Source: patient, old records reviewed, obtained from family Medical history: COPD, fibromyalgia, GERD, hyperlipidemia, hypertension, osteoporosis Psychiatric history: no psych history - Past Surgical History Surgical History: cataract - Social History Smoking Status: Former smoker Smokeless Tobacco Status: No Alcohol use: none Drug use: none Current living situation: Home - Independent Activity Level: Uses cane/walker Recent Out of Country Travel Within the Last 8 Weeks: No Exposure or Possible Exposure to Illness During Travel: No - Family History Father Race: Family Member Ethnicity: Non- Living Status: Hx Family Cancer: Yes (Unknown type) Internal Medicine - H&P: Meds Albuterol Sulfate [Proair Hfa] 2 puff IH Q4H PRN 05/15/17 [History] Aspirin 81 mg PO DAILY 05/15/17 [History] Calcium Carbonate [Calcium] 1,000 mg PO DAILY 05/15/17 [History] Fluticasone Propionate Nasal [Flonase] 1 spray NS DAILY 05/15/17 [History] HYDROcodone/Acet 7.5/325 mg [Foster 7.5-325 mg] 1 tab PO Q4H PRN 05/15/17 [ History] Multivitamin [Multi-Day Vitamins] 1 tab PO DAILY 05/15/17 [History] Naproxen Sodium [Aleve] 220 - 440 mg PO BID PRN 05/15/17 [History] Omeprazole [PriLOSEC] 20 mg PO DAILY 05/15/17 [History] Propylene Glycol/Peg 400 [Systane 0.3-0.4% Eye Drops] 1 drop BOTH EYES Q6H PRN 05/15/17 [History] Simvastatin [Zocor] 10 mg PO HS 05/15/17 [History] Zoledronic Acid (Reclast) [Reclast Premix 5 MG/100 ML] 5 mg IV [id number] [History] Docusate [Colace] 100 mg PO BID PRN 01/20/18 [History] Furosemide [Lasix] 20 mg PO DAILY 01/20/18 [History] Oxygen 2 l NS AD 01/20/18 [History] 3 Allergy/AdvReac Type Severity Reaction Status Date / Time No Known Allergies Allergy Verified 03/20/18 16:05 All Systems PM: A 10-system review of systems was performed and is negative for pertinent findings except as documented above in the HPI. - Constitutional Constitutional: as per HPI, anorexia, weakness, no chills, no fever(s), no night sweats - EENT Eyes: no change in vision, no discharge, no pain, no photophobia Ears: no ear discharge, no ear pain, no tinnitus Nose, mouth and throat: no dysphagia, no nasal discharge, no neck pain, no sore throat - Breasts Breasts: as per HPI - Cardiovascular Cardiovascular ROS IM: as per HPI, chest pain, dyspnea, dyspnea on exertion, edema (Reports occasional edema in BLEs but not always compliant w/lasix.), no diaphoresis, no lightheadedness, no palpitations, no syncope - Respiratory Respiratory: as per HPI, dyspnea, dyspnea on exertion, no cough, no wheezing, no excessive phlegm production - Gastrointestinal Gastrointestinal: abdominal pain, constipation, nausea, no diarrhea, no hematemesis, no hematochezia, no melena, no vomiting - Genitourinary Genitourinary: no change in urinary stream, no dysuria, no flank pain, no hematuria Menstruation: as per HPI - Musculoskeletal Musculoskeletal ROS IM: as per HPI, arthralgias, back pain, myalgias, no numbness, no tingling - Integumentary Integumentary IM: no rash, no unusual bruising - Neurological Neurological ROS: no confusion, no convulsions, no focal weakness, no numbness, no tingling, no tremor(s) - Psychiatric Psychiatric: as per HPI - Endocrine Endocrine IM: as per HPI - Hematologic/Lymphatic Hematologic/Lymphatic: no easy bruising - Allergic/Immunologic Allergic/Immunologic: as per HPI - Constitutional Vitals: Temp Pulse Resp BP Pulse Ox 97.7 F 68 16 161/79 100 03/20/18 12:31 03/20/18 16:51 03/20/18 16:51 03/20/18 16:51 03/20/18 16:51 General appearance: Present: cachectic, cooperative, mild distress (Pain over body), A&O X 3, answers questions appropriately - Head Head exam: Present: atraumatic, normocephalic - Eye Eye exam: Present: PERRL, conjuntiva pink, sclera anicteric Pupils: Present: PERRL - ENT ENT exam: Present: normal exam - Neck Neck exam general surgery: Present: supple, trachea midline. Absent: lymphadenopathy - Respiratory Respiratory exam: Present: CTAB. Absent: accessory muscle use, rales, rhonchi, wheezes - Cardiovascular Cardiovascular exam: Present: RRR, +S1, +S2. Absent: diastolic murmur, gallop, rubs, systolic murmur - GI/Abdominal GI/Abdominal exam: Present: normal bowel sounds, soft, tenderness, no peritoneal signs. Absent: distended - Rectal Rectal exam: Present: deferred - Additional comments: exam deferred. - Extremities Exam Extremities exam: Present: warm, radial pulses palpable and symmetrical. Absent : calf tenderness, cyanotic, pedal edema - Back Exam Back exam: Present: normal inspection, tenderness - Neurological Exam Neurological exam: Present: CN II-XII intact, oriented X3, no focal deficits. Absent: pronater drift, facial droop, speech deficit - Psychiatric Psychiatric exam: Present: normal affect, normal mood - Skin Skin exam: Present: dry, intact Internal Med - H&P Results - Labs CBC & Chem 7: 03/20/18 13:16 03/20/18 13:16 - EKG Data EKG shows normal: sinus rhythm - EKG Data Prior EKG available for review: yes Interpretation IM: suggestive of ischemia EKG comments: 03/20/18 18:40 EKG dated 01/20/18 shows sinus rhythm with occasional ventricular premature complexes. EKG dated 03/20/18 shows sinus rhythm with septal myocardial infarction of indeterminate age. - Diagnostic Studies CT scan - abdomen Additional comments: Impressions Abdomen/Pelvis CT 03/20/18 13:01 IMPRESSION: Diverticulosis of the entire colon. Suspicion of low grade diverticulitis in the descending and sigmoid colon. Clinical correlation is recommended. Mild bronchiectasis and bronchial wall thickening in the lingula and right greater than left lower lobes. Calcific coronary artery disease. Multiple remote lower thoracic and lumbar vertebral body compression fractures. Buckling of the anterior cortex of the sacrum, new from 11/17/2014. D/ / Wan Lee MD / Wan Lee MD Interpreting Provider: Wan Lee MD CT scan - chest Additional comments: Impressions Chest CTA 03/20/18 12:42 IMPRESSION: 1. No pulmonary embolism. 2. New inflammatory type 1-2 mm subpleural nodules lateral right upper lobe, right lower lobe and lingula left upper lobe are suspicious for infectious process. Follow-up CT imaging is recommended to ensure clearing. 3. Emphysema. 4. Calcific atherosclerosis aorta and coronary arteries. 5. Stable multifocal thoracic and lumbar fractures presumably the result of osteoporosis. D/ / Micah Sanches / Micah Sanches Interpreting Provider: Micah Sanches Other Images Additional comments: Impressions Cervical Spine CT 03/20/18 12:42 IMPRESSION: 1. Cervical levoconvex scoliosis with multilevel degenerative changes resulting in canal and foraminal stenosis. Multilevel 1-2 mm spondylolisthesis. 2. No acute osseous abnormality. D/ / 03/20/2018 15:08:54 Rodney Valero MD / maci Interpreting Provider: Rodney Valero MD Thoracic Spine CT 03/20/18 12:42 IMPRESSION: 1. Subacute T8 compression fracture demonstrating 20% loss of height, new from previous MRI of the lumbar spine from 11/05/2017. 2. Multiple remote compression fractures involving T5, T7, T10, T12, L1, L2, L3 and L5. 3. No acute fracture of the lumbar spine evident. 4. Severe osteopenia. D/ / 03/20/2018 15:11:42 Bharat Sofia MD / maci Interpreting Provider: Bharat Sofia MD Lumbar Spine CT 03/20/18 13:03 IMPRESSION: 1. Subacute T8 compression fracture demonstrating 20% loss of height, new from previous MRI of the lumbar spine from 11/05/2017. 2. Multiple remote compression fractures involving T5, T7, T10, T12, L1, L2, L3 and L5. 3. No acute fracture of the lumbar spine evident. 4. Severe osteopenia. D/ / 03/20/2018 15:11:42 Bharat Sofia MD / maci Interpreting Provider: Bharat Sofia MD - Assessment and plan (1) HCAP (healthcare-associated pneumonia) Current Visit: Yes Status: Acute Assessment and plan: Acute HCAP. Pt. hospitalized in late December for COPD exacerbation. WBC. 12.5 on admission. HR 72. RR 16. Pt. does not currently meet sepsis criteria but will be monitored closely. Blood cultures x2 ordered. Respiratory infection panel ordered. IVPB vancomycin and Zosyn ordered in ED. Will continue vancomycin w/Pharmacy dosing and IVPB Zosyn 3.375 gm Q8HR for infection coverage. Will adjust abx coverage based on culture and panel results. DuoNebs Q6HR PRN. Supplemental O2 w/titration and SpO2 monitoring. Continuous cardiac telemetry. Pt. also receiving Cipro and Flagyl for diverticulitis dx. Culturelle PO. Pt. discussed w/Dr. Herron who agrees w/plan of care. Pt. is high risk for further morbidity d/t current HCAP, diverticulitis, advanced age, severe pain from multiple fxs, hx, and risk factors. Inpatient. (2) Chest pain Current Visit: Yes Status: Acute Assessment and plan: Acute chest discomfort that is reproducible in sternum area as well as epigastric area. Initial troponin <0.03. Will trend. Continuous cardiac telemetry. Continue pts. aspirin and statin. Concern for possible PE based on sx but CTA of chest negative for PE. Qualifiers: Chest pain type: unspecified Qualified Code(s): R07.9 - Chest pain, unspecified (3) Abdominal pain Current Visit: Yes Status: Acute Assessment and plan: Acute abdominal pain. Pts. CT of abd/pel shows diverticulosis of the entire colon. Suspicion of low-grade diverticulitis in the descending and sigmoid colon. IVPB ciprofloxacin and Flagyl for diverticulitis coverage. Monitor I&O. Qualifiers: Abdominal location: epigastric Qualified Code(s): R10.13 - Epigastric pain (4) Constipation Current Visit: Yes Status: Acute Assessment and plan: Hx of acute on chronic constipation. Continue pts. Colace and add Miralax PRN. Monitor I&O. Qualifiers: Constipation type: unspecified constipation type Qualified Code(s): K59.00 - Constipation, unspecified (5) HTN (hypertension) Current Visit: Yes Status: Chronic Assessment and plan: Hx of chronic HTN. Monitor pt. and VS. Pt. does not currently take HTN medication. Will monitor and add hydralazine PRN if warranted. Qualifiers: Hypertension type: essential hypertension Qualified Code(s): I10 - Essential (primary) hypertension (6) HLD (hyperlipidemia) Current Visit: Yes Status: Chronic Assessment and plan: Hx of chronic HLD. Lipid panel in a.m. labs. Continue pts. Zocor. Qualifiers: Hyperlipidemia type: pure hypercholesterolemia Qualified Code(s): E78.00 - Pure hypercholesterolemia, unspecified; E78.0 - Pure hypercholesterolemia (7) GERD (gastroesophageal reflux disease) Current Visit: Yes Status: Chronic Assessment and plan: Hx of chronic GERD. Takes PO Prilosec. Hold PO and administer IVP Protonix 40 mg daily. Zofran 4 mg IVP Q6HR for N/V. Qualifiers: Esophagitis presence: esophagitis presence not specified Qualified Code(s) : K21.9 - Gastro-esophageal reflux disease without esophagitis (8) Osteoporosis Current Visit: Yes Status: Chronic Assessment and plan: Hx of chronic osteoporosis w/chronic fxs present in multiple locations. CT of cervical spine shows cervical levoconvex scoliosis with multilevel degenerative changes resulting in canal and foraminal stenosis. Multilevel 1-[address] of the thoracic spine shows subacute T8 compression fracture demonstrating 20% loss of height which is new from previous MRI of the lumbar spine on 11/05/17. Multiple remote compression fractures involving T5, T7, T10, T12, L1, L2, L3, and L5. No acute fracture or lumbar spine evident. Severe osteopenia. Pt. seen by Dr. Garber several days ago for epidural injection. Stair-step pain medication for pain mgmt. Pain Management consult ordered and I appreciate the consult. 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 Pt. reports loss of appetite following epidural injection. Lives alone. Mechanically altered soft diet ordered d/t report of choking and aspiration risk. Aspiration precautions. Bedside swallow evaluation. Nutrition consult ordered for supplementation. Monitor I&O and daily weight. (10) Anemia Current Visit: Yes Status: Chronic Assessment and plan: Hx of acute anemia. Hgb currently 10.0 and Hct 32.1 which are down from late December admission. Pt. denies unusual bleeding. Monitor H/H in f/u labs and monitor I&O for signs of bleeding. Qualifiers: Anemia type: unspecified type Qualified Code(s): D64.9 - Anemia, unspecified (11) COPD (chronic obstructive pulmonary disease) Current Visit: Yes Status: Chronic Assessment and plan: Hx of chronic COPD. Currently stable. Continue pts. inhalers and add DuoNebs Q6HR PRN. Supplemental O2 w/titration and SpO2 monitoring. Qualifiers: COPD type: unspecified COPD Qualified Code(s): J44.9 - Chronic obstructive pulmonary disease, unspecified (12) DVT prophylaxis Current Visit: Yes Status: Acute Assessment and plan: Bilateral anti-embolic hose on LEs for DVT prophylaxis. Pts. current Hgb 10.0 and Hct 32.1 on admission. Denies unusual bleeding. - Time Spent With Patient Total time spent is greater than 50% in coordination of care (as documented) at patient's floor/unit and/or counseling patient: Greater than 35 minutes <Zachary Herron - Last Filed: 03/21/18 07:19> Date of Encounter: 03/20/18 Internal Medicine - H&P: HPI History of present illness: Ms. Hu is a 87 year old female All Systems PM: A 10-system review of systems was performed and is negative for pertinent findings except as documented above in the HPI. - Constitutional Vitals: Temp Pulse Resp BP Pulse Ox 97.9 F 83 18 157/80 100 03/21/18 07:00 03/21/18 07:00 03/21/18 07:00 03/21/18 07:00 03/21/18 07:00 Internal Med - H&P Results - Labs CBC & Chem 7: 03/21/18 00:53 03/21/18 00:53 Labs: Short CBC 03/21/18 Range/Units 00:53 WBC 13.3 H (4.3-11.1) K/mcL Hgb 9.7 L (11.5-15.4) g/dL Hct 30.7 L (35.3-44.9) % Plt Count 324 (140-400) K/mcL Neutrophils # 11.9 H (1.6-8.9) K/mcL BMP 03/21/18 00:53 Sodium 139 Potassium 3.9 Chloride 106 Carbon Dioxide 28 BUN 17 Creatinine 0.47 L Glucose 76 Calcium 7.6 L Cardiac Enzymes 03/20/18 03/21/18 Range/Units 20:01 00:53 Troponin I < 0.03 < 0.03 (< 0.04) ng/mL Liver Function 03/21/18 Range/Units 00:53 Total Bilirubin 0.4 (0.3-1.0) mg/dL AST 22 (13-39) Units/L ALT 9 (7-52) Units/L Alkaline Phosphatase 87 (34-104) Units/L Albumin 2.3 L (3.5-5.7) g/dL - Attending Attestation I saw and examined this patient independently, and my medical decision making was reviewed with the resident physician on 2017. I agree with the documented findings, assessment and treatment plan as described in the progress note. - Time Spent With Patient Total time spent is greater than 50% in coordination of care (as documented) at patient's floor/unit and/or counseling patient:
[2018-03-20] MEDS ORDERED: Ondansetron 4 MG/2 ML VIAL IVP PRN (19:17)
[2018-03-20] MEDS ORDERED: Ipratropium/Albuterol Neb 3 ML IH PRN (19:34)
[2018-03-20] MEDS: Pantoprazole 40 MG VIAL IVP SCH (20:25)
[2018-03-20] MEDS: 0.9 % Sodium Chloride 1,000 ML IVC SCH (20:26)
[2018-03-20] MEDS: Lactobacillus 1 EACH CAP.SPRINK PO SCH (20:26)
[2018-03-20] MEDS: *HR* HYDROcodone/Acet 7.5/325 mg TABLET PO PRN (20:26)
[2018-03-21] MEDS ORDERED: Piperacillin/Tazobactam 3.375 GM in 0.9 % Sodium Chloride Mini Bag 100 ML IVPB SCH
[2018-03-21] MEDS: MetroNIDAZOLE 500 MG/100 ML 500 MG/100 ML BAG IVPB SCH ×3 (01:02→16:03)
[2018-03-21] MEDS: *HR* OxyCODONE Immed Rel 5 MG TABLET PO PRN ×3 (01:02→16:46)
[2018-03-21 01:19] LABS: Basophils % 0.1 %; Eosinophils % 0.2 %; Hematocrit 30.7 % (35.3-44.9); Hemoglobin 9.7 g/dL (11.5-15.4); Immature Granulocytes % 0.3 % (0-4); Lymphocytes # 0.8 K/mcL (0.6-4.6); Lymphocytes % 6.3 %; Mean Corpuscular HGB Conc 31.6 g/dL (31.6-35.5); Mean Corpuscular Hemoglobin 33.3 pg (28.0-33.3); Mean Corpuscular Volume 105.5 fL (83.0-100.0); Mean Platelet Volume 9.4 fL (9.4-12.4); Monocytes # 0.5 K/mcL (0.0-1.3); Monocytes % 3.7 %; Neutrophils # 11.9 K/mcL (1.6-8.9); Platelet Count 324 K/mcL (140-400); Red Blood Count 2.91 M/mcL (3.82-4.97); Segmented Neutrophils % 89.4 %
[2018-03-21 01:39] LABS: Alanine Aminotransferase 9 Units/L (7-52); Albumin 2.3 g/dL (3.5-5.7); Albumin/Globulin Ratio 0.9 (1.1-2.2); Alkaline Phosphatase 87 Units/L (34-104); Aspartate Amino Transferase 22 Units/L (13-39); BUN/Creatinine Ratio 36 (6-26); Bilirubin,Total 0.4 mg/dL (0.3-1.0); Blood Urea Nitrogen 17 mg/dL (8-23); Calcium 7.6 mg/dL (8.6-10.3); Carbon Dioxide 28 mEq/L (23-29); Chloride 106 mEq/L (98-107); Chol/HDL Ratio 2.6 (0-4.9); Cholesterol 95 mg/dL (< 200); Globulin 2.5 g/dL (2.4-3.5); Glucose 76 mg/dL (70-105); HDL Cholesterol 37 mg/dL (40-59); LDL Cholesterol,Calculated 38 mg/dL (0-99); Osmolality,Calculated 288 (280-300); Potassium 3.9 mEq/L (3.5-5.1); Sodium 139 mEq/L (136-145); Total Protein 4.8 g/dL (6.4-8.9); Triglycerides 102 mg/dL (< 150); eGFR For African Americans > 60 (> 60); eGFR For Non-African Americans > 60 (> 60)
[2018-03-21 02:15] LABS: Adenovirus Not Detected (Not Detect); Bordetella Pertussis Not Detected (Not Detect); Chlamydophila pneumoniae Not Detected (Not Detect); Coronavirus 229E Not Detected (Not Detect); Coronavirus HKU1 Not Detected (Not Detect); Coronavirus NL63 Not Detected (Not Detect); Coronavirus OC43 Not Detected (Not Detect); Human Metapneumovirus Not Detected (Not Detect); Human Rhinovirus/Enterovirus Not Detected (Not Detect); Influenza A Subtype 2009 H1 Not Detected (Not Detect); Influenza A Untypeable Not Detected (Not Detect); Influenza B Not Detected (Not Detect); Mycoplasma pneumoniae Not Detected (Not Detect); Parainfluenza Virus 1 Not Detected (Not Detect); Parainfluenza Virus 2 Not Detected (Not Detect); Parainfluenza Virus 3 Not Detected (Not Detect); Parainfluenza Virus 4 Not Detected (Not Detect); Respiratory Syncytial Virus Not Detected (Not Detect)
[2018-03-21] MEDS: *HR* HYDROcodone/Acet 7.5/325 mg TABLET PO PRN ×3 (05:53→20:33)
[2018-03-21] MEDS: Piperacillin/Tazobactam 3.375 GM in 0.9 % Sodium Chloride Mini Bag 100 ML IVPB SCH ×3 (05:54→20:34)
[2018-03-21 07:29] LABS: Estimated Average Glucose 103 mg/dl; Hemoglobin A1C 5.2 %
[2018-03-21] MEDS: Aspirin 81 MG TAB.CHEW PO SCH (07:37)
[2018-03-21] MEDS: Multivit/Ca/Min/Fe/FA 1 TAB TABLET PO SCH (07:37)
[2018-03-21] MEDS: Lactobacillus 1 EACH CAP.SPRINK PO SCH (07:37)
[2018-03-21] MEDS: Pantoprazole 40 MG VIAL IVP SCH (07:37)
[2018-03-21] MEDS: Furosemide 20 MG TABLET PO SCH (07:37)
[2018-03-21] MEDS: Fluticasone Propionate Nasal 50 MCG/SPRAY BOTTLE NS SCH (07:38)
--- NOTE | 2018-03-21 12:06 | Internal Med Progress Note ---
Date of Encounter: 03/21/18 Time of Encounter: 11:50 - Assessment and plan (1) HCAP (healthcare-associated pneumonia) Current Visit: Yes Status: Acute Assessment and plan: On broad spectrum abx with vanc, cipro and flagyl. Pt feeling better this am. F/U blood cx. CT chest shows new nodules. will need f/u CT (2) Chest pain Current Visit: Yes Status: Acute Assessment and plan: Acute chest discomfort that is reproducible in sternum area as well as epigastric area. Initial troponin <0.03. Will trend. Continuous cardiac telemetry. Continue pts. aspirin and statin. Concern for possible PE based on sx but CTA of chest negative for PE. Likely musculoskeletal. pain control prn Qualifiers: Chest pain type: unspecified Qualified Code(s): R07.9 - Chest pain, unspecified (3) Diverticulitis Current Visit: Yes Status: Acute Assessment and plan: On cipro and flagyl (4) Abdominal pain Current Visit: Yes Status: Acute Assessment and plan: Acute abdominal pain. Pts. CT of abd/pel shows diverticulosis of the entire colon. Suspicion of low-grade diverticulitis in the descending and sigmoid colon. IVPB ciprofloxacin and Flagyl for diverticulitis coverage. Monitor I&O. Qualifiers: Abdominal location: epigastric Qualified Code(s): R10.13 - Epigastric pain (5) DVT prophylaxis Current Visit: Yes Status: Acute Assessment and plan: Bilateral anti-embolic hose on LEs for DVT prophylaxis. Pts. current Hgb 10.0 and Hct 32.1 on admission. Denies unusual bleeding. (6) HTN (hypertension) Current Visit: Yes Status: Chronic Assessment and plan: Hx of chronic HTN. Monitor pt. and VS. Pt. does not currently take HTN medication. Will monitor and add hydralazine PRN if warranted. Qualifiers: Hypertension type: essential hypertension Qualified Code(s): I10 - Essential (primary) hypertension (7) HLD (hyperlipidemia) Current Visit: Yes Status: Chronic Assessment and plan: Hx of chronic HLD. Lipid panel in a.m. labs. Continue pts. Zocor. Qualifiers: Hyperlipidemia type: pure hypercholesterolemia Qualified Code(s): E78.00 - Pure hypercholesterolemia, unspecified; E78.0 - Pure hypercholesterolemia (8) GERD (gastroesophageal reflux disease) Current Visit: Yes Status: Chronic Assessment and plan: Hx of chronic GERD. Takes PO Prilosec. Hold PO and administer IVP Protonix 40 mg daily. Zofran 4 mg IVP Q6HR for N/V. Qualifiers: Esophagitis presence: esophagitis presence not specified Qualified Code(s) : K21.9 - Gastro-esophageal reflux disease without esophagitis (9) Osteoporosis Current Visit: Yes Status: Chronic Assessment and plan: Hx of chronic osteoporosis w/chronic fxs present in multiple locations. CT of cervical spine shows cervical levoconvex scoliosis with multilevel degenerative changes resulting in canal and foraminal stenosis. Multilevel 1-[address] of the thoracic spine shows subacute T8 compression fracture demonstrating 20% loss of height which is new from previous MRI of the lumbar spine on 11/05/17. Multiple remote compression fractures involving T5, T7, T10, T12, L1, L2, L3, and L5. No acute fracture or lumbar spine evident. Severe osteopenia. Pt. seen by Dr. Garber several days ago for epidural injection. Stair-step pain medication for pain mgmt. Pain Management consult ordered and I appreciate the consult. 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 Pt. reports loss of appetite following epidural injection. Lives alone. Mechanically altered soft diet ordered d/t report of choking and aspiration risk. Aspiration precautions. Bedside swallow evaluation. Nutrition consult ordered for supplementation. Monitor I&O and daily weight. (11) Constipation Current Visit: Yes Status: Acute Assessment and plan: Hx of acute on chronic constipation. Continue pts. Colace and add Miralax PRN. Monitor I&O. Qualifiers: Constipation type: unspecified constipation type Qualified Code(s): K59.00 - Constipation, unspecified (12) Anemia Current Visit: Yes Status: Chronic Qualifiers: Anemia type: unspecified type Qualified Code(s): D64.9 - Anemia, unspecified (13) COPD (chronic obstructive pulmonary disease) Current Visit: Yes Status: Chronic Assessment and plan: Hx of chronic COPD. Currently stable. Continue pts. inhalers and add DuoNebs Q6HR PRN. Supplemental O2 w/titration and SpO2 monitoring. Qualifiers: COPD type: unspecified COPD Qualified Code(s): J44.9 - Chronic obstructive pulmonary disease, unspecified - Time Spent With Patient Total time spent is greater than 50% in coordination of care (as documented) at patient's floor/unit and/or counseling patient: - Subjective Interval history: No acute events overnight - Constitutional Vitals: Temp Pulse Resp BP Pulse Ox 97.8 F 76 16 140/69 93 03/21/18 11:20 03/21/18 11:20 03/21/18 11:20 03/21/18 11:20 03/21/18 11:20 General appearance: Present: cachectic, cooperative, mild distress (Pain over body), A&O X 3, answers questions appropriately Exam: frail elderly lady - Head Head exam: Present: atraumatic, normocephalic - Eye Eye exam: Present: PERRL, conjuntiva pink, sclera anicteric Pupils: Present: PERRL - Neck Neck exam general surgery: Present: supple, trachea midline. Absent: lymphadenopathy - Respiratory Respiratory exam: Present: CTAB. Absent: accessory muscle use, rales, rhonchi, wheezes - Cardiovascular Cardiovascular exam: Present: RRR, +S1, +S2. Absent: diastolic murmur, gallop, rubs, systolic murmur - GI/Abdominal GI/Abdominal exam: Present: normal bowel sounds, soft, no peritoneal signs. Absent: distended, tenderness - Extremities Exam Extremities exam: Present: warm, radial pulses palpable and symmetrical. Absent : calf tenderness, cyanotic, pedal edema - Neurological Exam Neurological exam: Present: CN II-XII intact, oriented X3, no focal deficits. Absent: pronater drift, facial droop, speech deficit - Skin Skin exam: Present: dry, intact Internal Medicine: Result - Labs CBC & Chem 7: 03/21/18 00:53 03/21/18 00:53 Labs: Short CBC 03/21/18 Range/Units 00:53 WBC 13.3 H (4.3-11.1) K/mcL Hgb 9.7 L (11.5-15.4) g/dL Hct 30.7 L (35.3-44.9) % Plt Count 324 (140-400) K/mcL Neutrophils # 11.9 H (1.6-8.9) K/mcL BMP 03/21/18 00:53 Sodium 139 Potassium 3.9 Chloride 106 Carbon Dioxide 28 BUN 17 Creatinine 0.47 L Glucose 76 Calcium 7.6 L Cardiac Enzymes 03/20/18 03/21/18 Range/Units 20:01 00:53 Troponin I < 0.03 < 0.03 (< 0.04) ng/mL Liver Function 03/21/18 Range/Units 00:53 Total Bilirubin 0.4 (0.3-1.0) mg/dL AST 22 (13-39) Units/L ALT 9 (7-52) Units/L Alkaline Phosphatase 87 (34-104) Units/L Albumin 2.3 L (3.5-5.7) g/dL - VTE Documentation of Mechanical Device: Graduated compression elastic hosiery Consult Discharge Plan - Plan Referrals: Ian Muse Jr, MD [Primary Care Provider] -
[2018-03-21] MEDS: 0.9 % Sodium Chloride 1,000 ML IVC SCH (15:37)
[2018-03-21] MEDS: Vancomycin 500 MG in 0.9 % Sodium Chloride Mini Bag 100 ML IVPB SCH (16:41)
[2018-03-22] MEDS: MetroNIDAZOLE 500 MG/100 ML 500 MG/100 ML BAG IVPB SCH ×3 (00:16→14:30)
[2018-03-22] MEDS: *HR* OxyCODONE Immed Rel 5 MG TABLET PO PRN (00:16)
[2018-03-22 01:24] LABS: Basophils % 0.1 %; Eosinophils # 0.4 K/mcL (0.0-0.6); Eosinophils % 3.2 %; Hematocrit 28.7 % (35.3-44.9); Hemoglobin 9.2 g/dL (11.5-15.4); Immature Granulocytes % 0.7 % (0-4); Lymphocytes % 7.7 %; Mean Corpuscular HGB Conc 32.1 g/dL (31.6-35.5); Mean Corpuscular Hemoglobin 33.9 pg (28.0-33.3); Mean Corpuscular Volume 105.9 fL (83.0-100.0); Mean Platelet Volume 9.7 fL (9.4-12.4); Monocytes # 0.6 K/mcL (0.0-1.3); Monocytes % 4.5 %; Neutrophils # 11.3 K/mcL (1.6-8.9); Platelet Count 253 K/mcL (140-400); Red Blood Count 2.71 M/mcL (3.82-4.97); Segmented Neutrophils % 83.8 %
[2018-03-22 01:42] LABS: BUN/Creatinine Ratio 22 (6-26); Blood Urea Nitrogen 13 mg/dL (8-23); Calcium 6.9 mg/dL (8.6-10.3); Carbon Dioxide 27 mEq/L (23-29); Chloride 110 mEq/L (98-107); Glucose 77 mg/dL (70-105); Osmolality,Calculated 289 (280-300); Potassium 3.5 mEq/L (3.5-5.1); Sodium 140 mEq/L (136-145); eGFR For African Americans > 60 (> 60); eGFR For Non-African Americans > 60 (> 60)
[2018-03-22] MEDS: *HR* HYDROcodone/Acet 7.5/325 mg TABLET PO PRN ×3 (05:40→20:46)
[2018-03-22] MEDS: Piperacillin/Tazobactam 3.375 GM in 0.9 % Sodium Chloride Mini Bag 100 ML IVPB SCH ×3 (05:40→21:03)
[2018-03-22] MEDS: Multivit/Ca/Min/Fe/FA 1 TAB TABLET PO SCH (08:22)
[2018-03-22] MEDS: Aspirin 81 MG TAB.CHEW PO SCH (08:22)
[2018-03-22] MEDS: Lactobacillus 1 EACH CAP.SPRINK PO SCH (08:22)
[2018-03-22] MEDS: Furosemide 20 MG TABLET PO SCH (08:22)
[2018-03-22] MEDS: Pantoprazole 40 MG VIAL IVP SCH (08:22)
[2018-03-22] MEDS: Fluticasone Propionate Nasal 50 MCG/SPRAY BOTTLE NS SCH (09:51)
--- NOTE | 2018-03-22 10:25 | Electrocardiograph Report ---
[address] [address] Test Date: 2018-03-20 Pat Name: Isaura Hu Department: 104 Room: [facility] Gender: F Sight Effects Specialist: TONY : [id number] Requested By: Efarin West Order Number: [id number] Reading MD: Chrissy Garcia Measurements Intervals Pedro Rate: 74 P: 55 WV: 145 QRS: 65 QRSD: 73 T: 61 QT: 350 QTc: 378 Interpretive Statements SINUS RHYTHM SEPTAL MYOCARDIAL INFARCTION [40+ ms Q WAVE IN V1/V2], OF INDETERMINATE AGE ARTIFACT Electronically Signed On 03-22-2018 10:23:44 EDT by Chrissy Garcia
--- NOTE | 2018-03-22 10:47 | Internal Med Progress Note ---
Date of Encounter: 03/22/18 Time of Encounter: 10:45 - Assessment and plan (1) HCAP (healthcare-associated pneumonia) Current Visit: Yes Status: Acute Assessment and plan: On broad spectrum abx with vanc, zosyn and flagyl. Pt feeling better this am. F/U blood cx. CT chest shows new nodules. will need f/u CT (2) Diverticulitis Current Visit: Yes Status: Acute Assessment and plan: On zosyn and flagyl. Appreciate GI recs (3) Chest pain Current Visit: Yes Status: Acute Assessment and plan: Acute chest discomfort that is reproducible in sternum area as well as epigastric area. Initial troponin <0.03. Will trend. Continuous cardiac telemetry. Continue pts. aspirin and statin. Concern for possible PE based on sx but CTA of chest negative for PE. Likely musculoskeletal. pain control prn Qualifiers: Chest pain type: unspecified Qualified Code(s): R07.9 - Chest pain, unspecified (4) Abdominal pain Current Visit: Yes Status: Acute Assessment and plan: Acute abdominal pain. Pts. CT of abd/pel shows diverticulosis of the entire colon. Suspicion of low-grade diverticulitis in the descending and sigmoid colon. IVPB zosyn and Flagyl for diverticulitis coverage. Monitor I&O. Qualifiers: Abdominal location: epigastric Qualified Code(s): R10.13 - Epigastric pain (5) DVT prophylaxis Current Visit: Yes Status: Acute Assessment and plan: Bilateral anti-embolic hose on LEs for DVT prophylaxis. (6) HTN (hypertension) Current Visit: Yes Status: Chronic Assessment and plan: Hx of chronic HTN. Monitor pt. and VS. Pt. does not currently take HTN medication. Will monitor and add hydralazine PRN if warranted. Qualifiers: Hypertension type: essential hypertension Qualified Code(s): I10 - Essential (primary) hypertension (7) HLD (hyperlipidemia) Current Visit: Yes Status: Chronic Assessment and plan: Hx of chronic HLD. Lipid panel in a.m. labs. Continue pts. Zocor. Qualifiers: Hyperlipidemia type: pure hypercholesterolemia Qualified Code(s): E78.00 - Pure hypercholesterolemia, unspecified; E78.0 - Pure hypercholesterolemia (8) GERD (gastroesophageal reflux disease) Current Visit: Yes Status: Chronic Assessment and plan: Hx of chronic GERD. continue po protonix. Zofran 4 mg IVP Q6HR for N/V. Qualifiers: Esophagitis presence: esophagitis presence not specified Qualified Code(s) : K21.9 - Gastro-esophageal reflux disease without esophagitis (9) Osteoporosis Current Visit: Yes Status: Chronic Assessment and plan: Hx of chronic osteoporosis w/chronic fxs present in multiple locations. CT of cervical spine shows cervical levoconvex scoliosis with multilevel degenerative changes resulting in canal and foraminal stenosis. Multilevel 1-[address] of the thoracic spine shows subacute T8 compression fracture demonstrating 20% loss of height which is new from previous MRI of the lumbar spine on 11/05/17. Multiple remote compression fractures involving T5, T7, T10, T12, L1, L2, L3, and L5. No acute fracture or lumbar spine evident. Severe osteopenia. Pt. seen by Dr. Garber several days ago for epidural injection. Stair-step pain medication for pain mgmt. Pain Management consult ordered and I appreciate the consult. 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 Pt. reports loss of appetite following epidural injection. Lives alone. Mechanically altered soft diet ordered d/t report of choking and aspiration risk. Aspiration precautions. Bedside swallow evaluation. Nutrition consult ordered for supplementation. Monitor I&O and daily weight. (11) Constipation Current Visit: Yes Status: Acute Assessment and plan: Hx of acute on chronic constipation. Continue pts. Colace and add Miralax PRN. Monitor I&O. Qualifiers: Constipation type: unspecified constipation type Qualified Code(s): K59.00 - Constipation, unspecified (12) Anemia Current Visit: Yes Status: Chronic Assessment and plan: Stable. no acute bleeding. Qualifiers: Anemia type: unspecified type Qualified Code(s): D64.9 - Anemia, unspecified (13) COPD (chronic obstructive pulmonary disease) Current Visit: Yes Status: Chronic Assessment and plan: Hx of chronic COPD. Currently stable. Continue pts. inhalers and add DuoNebs Q6HR PRN. Supplemental O2 w/titration and SpO2 monitoring. Qualifiers: COPD type: unspecified COPD Qualified Code(s): J44.9 - Chronic obstructive pulmonary disease, unspecified - Time Spent With Patient Total time spent is greater than 50% in coordination of care (as documented) at patient's floor/unit and/or counseling patient: - Subjective Interval history: No acute events overnight - Constitutional Vitals: Temp Pulse Resp BP Pulse Ox 97.7 F 75 16 132/72 92 03/22/18 07:24 03/22/18 07:24 03/22/18 07:24 03/22/18 07:24 03/22/18 07:24 General appearance: Present: cachectic, cooperative, mild distress (Pain over body), A&O X 3, answers questions appropriately Exam: Cachetic elderly female - Head Head exam: Present: atraumatic, normocephalic - Eye Eye exam: Present: PERRL, conjuntiva pink, sclera anicteric Pupils: Present: PERRL - Neck Neck exam general surgery: Present: supple, trachea midline. Absent: lymphadenopathy - Respiratory Respiratory exam: Present: CTAB. Absent: accessory muscle use, rales, rhonchi, wheezes - Cardiovascular Cardiovascular exam: Present: RRR, +S1, +S2. Absent: diastolic murmur, gallop, rubs, systolic murmur - GI/Abdominal GI/Abdominal exam: Present: normal bowel sounds, soft, no peritoneal signs. Absent: distended, tenderness - Extremities Exam Extremities exam: Present: warm, radial pulses palpable and symmetrical. Absent : calf tenderness, cyanotic, pedal edema - Neurological Exam Neurological exam: Present: CN II-XII intact, oriented X3, no focal deficits. Absent: pronater drift, facial droop, speech deficit - Skin Skin exam: Present: dry, intact Internal Medicine: Result - Labs CBC & Chem 7: 03/22/18 01:10 03/22/18 01:10 Labs: Short CBC 03/22/18 Range/Units 01:10 WBC 13.5 H (4.3-11.1) K/mcL Hgb 9.2 L (11.5-15.4) g/dL Hct 28.7 L (35.3-44.9) % Plt Count 253 (140-400) K/mcL Neutrophils # 11.3 H (1.6-8.9) K/mcL BMP 03/22/18 01:10 Sodium 140 Potassium 3.5 Chloride 110 H Carbon Dioxide 27 BUN 13 Creatinine 0.60 Glucose 77 Calcium 6.9 L - VTE Documentation of Mechanical Device: Graduated compression elastic hosiery Consult Discharge Plan - Plan Referrals: Ian Muse Jr, MD [Primary Care Provider] -
[2018-03-22] MEDS ORDERED: Furosemide 40 MG/4 ML VIAL IVP SCH (12:00)
[2018-03-22] MEDS ORDERED: Furosemide 20 MG TABLET PO ONE (12:10)
--- NOTE | 2018-03-22 13:39 | Gastroenterology Consult Note ---
<Dallin Dial - Last Filed: 03/22/18 13:37> Date of Encounter: 03/22/18 Time of Encounter: 11:15 - Assessment and plan (1) Abdominal pain Current Visit: Yes Status: Acute Assessment and plan: Secondary to diverticulitis. Pain is being well controlled. Qualifiers: Abdominal location: epigastric Qualified Code(s): R10.13 - Epigastric pain (2) Diverticulitis Current Visit: Yes Status: Acute Assessment and plan: CT A/P with diverticulosis of the entire colon and suspicion of low grade diverticulitis in the descending and sigmoid colon. Continue antibiotics. Plan for colonoscopy in 4-6 weeks as outpatient. (3) GERD (gastroesophageal reflux disease) Current Visit: Yes Status: Chronic Assessment and plan: Continue PPI. Qualifiers: Esophagitis presence: esophagitis presence not specified Qualified Code(s) : K21.9 - Gastro-esophageal reflux disease without esophagitis - Time Spent With Patient Total time spent is greater than 50% in coordination of care (as documented) at patient's floor/unit and/or counseling patient: GI History of Present Illness - Data of Consult Patient: new to practice Consult date: 03/22/18 Requesting Physician: Jo-Ann Sarmiento - Consult Narrative Reason for consult: Diverticulitis History of present illness: Ms. Hu is a 87 year old female with PMHx of COPD, fibromyalgia, GERD, HLD, HTN who presents to the ED with complaints of all over body pain. Patient reports she has had chronic pain for the past several months and reports numerous fractures and severe osteoporosis. She was seen by Dr. Garber at pain management several days ago and received epidural injection which she reports did not help. Reports reduced appetite and LLQ pain. She denies fever, chills, nausea, vomiting, constipation, diarrhea, or syncope. CT A/P with diverticulosis of the entire colon and suspicion of low grade diverticulitis in the descending and sigmoid colon. She was started on Cipro and Flagyl. She was noted to have pneumonia and was started on Vancomycin. Procedures: Colonoscopy 03/01/2014 Dr. Houston: Diverticulosis in entire colon, internal hemorrhoids. EGD 03/01/2014 Dr. Houston: Nonspecific gastritis NSAIDs: ASA, Aleve Anticoagulation: None Past Med Surg Social Fam HX - Past Medical History Medical history: COPD, fibromyalgia, GERD, hyperlipidemia, hypertension, osteoporosis Psychiatric history: no psych history - Past Surgical History Surgical History: cataract - Social History Smoking Status: Former smoker Smokeless Tobacco Status: No Alcohol use: none Drug use: none - Family History Father Race: Family Member Ethnicity: Non- Living Status: Hx Family Cancer: Yes (Unknown type) - Gastrointestinal Gastrointestinal: Present: as per HPI - Constitutional Constitutional: as per HPI - EENT Eyes: as per HPI Ears: Present: as per HPI Nose, mouth and throat: Present: as per HPI - Cardiovascular Cardiovascular ROS: Present: as per HPI - Respiratory Respiratory IM: Present: as per HPI - Genitourinary Genitourinary: Absent: change in color, Urinary frequency - Neurological ROS Neurological GI: Present: as per HPI - Hematologic/Lymphatic Hematologic/Lymphatic pediatric: Present: as per HPI - Musculoskeletal Musculoskeletal ROS GI: Present: as per HPI - Integumentary Integumentary GI: Present: as per HPI - Psychiatric ROS Psychiatric GI: Present: as per HPI - Endocrine Endocrine IM: Present: as per HPI - Constitutional Vitals: Temp Pulse Resp BP Pulse Ox 97.5 F L 70 16 128/72 93 03/22/18 11:15 03/22/18 11:15 03/22/18 11:15 03/22/18 11:15 03/22/18 11:15 General appearance: Present: cooperative, A&O X 3, no acute distress, answers questions appropriately - Head Head exam: Present: atraumatic, normocephalic - Eye Eye exam: Present: normal appearance, sclera anicteric - ENT ENT exam: Present: mucous membranes dry - Neck Neck exam general surgery: Present: normal inspection, trachea midline - Respiratory Respiratory exam: Present: decreased breath sounds, CTAB. Absent: rales, rhonchi - Cardiovascular Cardiovascular exam: Present: RRR, +S1, +S2 - GI/Abdominal GI/Abdominal exam: Present: normal bowel sounds, soft, no peritoneal signs. Absent: distended, firm, guarding, tenderness - Rectal Rectal exam: Present: deferred - Extremities Exam Extremities exam: Present: warm - Neurological Exam Neurological exam: Present: no focal deficits - Psychiatric Psychiatric exam: Present: normal affect, normal mood - Skin Skin exam: Present: dry, intact, normal color, warm Results - Labs CBC & Chem 7: 03/22/18 01:10 03/22/18 01:10 Labs: Last Result Calcium 6.9 mg/dL (8.6-10.3) L 03/22/18 01:10 Troponin I < 0.03 ng/mL (< 0.04) 03/21/18 00:53 Triglycerides 102 mg/dL (< 150) 03/21/18 00:53 Entire Visit Hgb 9.2 g/dL (11.5-15.4) L 03/22/18 01:10 Hct 28.7 % (35.3-44.9) L 03/22/18 01:10 Total Bilirubin 0.4 mg/dL (0.3-1.0) 03/21/18 00:53 AST 22 Units/L (13-39) 03/21/18 00:53 ALT 9 Units/L (7-52) 03/21/18 00:53 Consult Discharge Plan - Plan Referrals: Ian Muse Jr, MD [Primary Care Provider] - <Teddy Suh - Last Filed: 03/24/18 10:16> Date of Encounter: 03/22/18 - Time Spent With Patient Total time spent is greater than 50% in coordination of care (as documented) at patient's floor/unit and/or counseling patient: GI History of Present Illness - Data of Consult Requesting Physician: Jo-Ann Sarmiento - Consult Narrative History of present illness: Ms. Hu is a 87 year old female - Constitutional Vitals: Temp Pulse Resp BP Pulse Ox 98.2 F 91 15 132/74 93 03/24/18 06:27 03/24/18 06:27 03/24/18 06:27 03/24/18 06:27 03/24/18 06:27 Results - Labs CBC & Chem 7: 03/24/18 05:54 03/24/18 05:54 Labs: Last Result Calcium 7.5 mg/dL (8.6-10.3) L 03/24/18 05:54 Troponin I < 0.03 ng/mL (< 0.04) 03/21/18 00:53 Triglycerides 102 mg/dL (< 150) 03/21/18 00:53 Entire Visit Hgb 9.0 g/dL (11.5-15.4) L 03/24/18 05:54 Hct 27.6 % (35.3-44.9) L 03/24/18 05:54 Total Bilirubin 0.4 mg/dL (0.3-1.0) 03/21/18 00:53 AST 22 Units/L (13-39) 03/21/18 00:53 ALT 9 Units/L (7-52) 03/21/18 00:53 - Attending Attestation Rather frail 87 year old white female with severe osteoporosis and multiple fx back S/P vertebroplasty last week comes in with increased pain in back and in LLQ. Not convinced she has acute diverticulitis. Continue present therapy for now. Thank you for this consultation. I have personally performed a face to face evaluation on this patient. I have reviewed and agree with the care plan. History and Exam by me shows:
[2018-03-22] MEDS: Vancomycin 500 MG in 0.9 % Sodium Chloride Mini Bag 100 ML IVPB SCH (14:30)
[2018-03-23] MEDS: MetroNIDAZOLE 500 MG/100 ML 500 MG/100 ML BAG IVPB SCH ×4 (00:13→23:45)
[2018-03-23] MEDS: *HR* HYDROcodone/Acet 7.5/325 mg TABLET PO PRN ×4 (03:10→20:16)
[2018-03-23] MEDS: 0.9 % Sodium Chloride 1,000 ML IVC SCH (04:14)
[2018-03-23 04:45] LABS: Basophils % 0.1 %; Eosinophils # 0.7 K/mcL (0.0-0.6); Eosinophils % 4.8 %; Hematocrit 28.8 % (35.3-44.9); Hemoglobin 9.3 g/dL (11.5-15.4); Immature Granulocytes % 0.7 % (0-4); Lymphocytes # 0.9 K/mcL (0.6-4.6); Lymphocytes % 6.8 %; Mean Corpuscular HGB Conc 32.3 g/dL (31.6-35.5); Mean Corpuscular Hemoglobin 33.9 pg (28.0-33.3); Mean Corpuscular Volume 105.1 fL (83.0-100.0); Mean Platelet Volume 9.8 fL (9.4-12.4); Monocytes # 0.5 K/mcL (0.0-1.3); Monocytes % 3.9 %; Neutrophils # 11.3 K/mcL (1.6-8.9); Platelet Count 288 K/mcL (140-400); Red Blood Count 2.74 M/mcL (3.82-4.97); Red Cell Distribution Width 14.9 % (11.5-14.5); Segmented Neutrophils % 83.7 %
[2018-03-23 05:04] LABS: BUN/Creatinine Ratio 19 (6-26); Blood Urea Nitrogen 11 mg/dL (8-23); Calcium 7.3 mg/dL (8.6-10.3); Carbon Dioxide 31 mEq/L (23-29); Chloride 108 mEq/L (98-107); Glucose 102 mg/dL (70-105); Osmolality,Calculated 292 (280-300); Potassium 3.2 mEq/L (3.5-5.1); Sodium 141 mEq/L (136-145); eGFR For African Americans > 60 (> 60); eGFR For Non-African Americans > 60 (> 60)
[2018-03-23] MEDS: Piperacillin/Tazobactam 3.375 GM in 0.9 % Sodium Chloride Mini Bag 100 ML IVPB SCH ×2 (05:35→12:56)
[2018-03-23] MEDS: Furosemide 40 MG/4 ML VIAL IVP SCH (08:08)
[2018-03-23] MEDS: Aspirin 81 MG TAB.CHEW PO SCH (08:09)
[2018-03-23] MEDS: Lactobacillus 1 EACH CAP.SPRINK PO SCH (08:09)
[2018-03-23] MEDS: Multivit/Ca/Min/Fe/FA 1 TAB TABLET PO SCH (08:09)
[2018-03-23] MEDS ORDERED: Aminoglycoside Consult 1 EACH MC ONE (08:18)
[2018-03-23] MEDS: Fluticasone Propionate Nasal 50 MCG/SPRAY BOTTLE NS SCH (08:22)
--- NOTE | 2018-03-23 16:38 | Internal Med Progress Note ---
Date of Encounter: 03/23/18 Time of Encounter: 16:36 - Assessment and plan (1) Diverticulitis Current Visit: Yes Status: Acute Assessment and plan: ABD CT with diverticulosis of the entire colon concerning for low-grade diverticulitis in the distal ascending and sigmoid colon. Cont cipro, flagyl. Plan for colonoscopy in 4-6 weeks as outpatient. GI followed. (2) Chest pain Current Visit: Yes Status: Acute Assessment and plan: acute chest discomfort that is reproducible in sternum area as well as epigastric area. Initial troponin <0.03. Will trend. Continuous cardiac telemetry. Continue pts. aspirin and statin. Concern for possible PE based on sx but CTA of chest negative for PE. Likely musculoskeletal. pain control prn Qualifiers: Chest pain type: unspecified Qualified Code(s): R07.9 - Chest pain, unspecified (3) HTN (hypertension) Current Visit: Yes Status: Chronic Assessment and plan: Hx of chronic HTN but not on treatment. BP variable but acceptable. Hold on initiating antihypertensives at this time. Monitor BP and adjust medication regimen PRN Qualifiers: Hypertension type: essential hypertension Qualified Code(s): I10 - Essential (primary) hypertension (4) HLD (hyperlipidemia) Current Visit: Yes Status: Chronic Assessment and plan: per hx. Cont home statin Qualifiers: Hyperlipidemia type: pure hypercholesterolemia Qualified Code(s): E78.00 - Pure hypercholesterolemia, unspecified; E78.0 - Pure hypercholesterolemia (5) GERD (gastroesophageal reflux disease) Current Visit: Yes Status: Chronic Assessment and plan: hx of chronic GERD. continue po protonix. Zofran 4 mg IVP Q6HR for N/V. Qualifiers: Esophagitis presence: esophagitis presence not specified Qualified Code(s) : K21.9 - Gastro-esophageal reflux disease without esophagitis (6) Osteoporosis Current Visit: Yes Status: Chronic Assessment and plan: Hx of chronic osteoporosis w/chronic fxs present in multiple locations. CT of cervical spine shows cervical levoconvex scoliosis with multilevel degenerative changes resulting in canal and foraminal stenosis. Multilevel 1-[address] of the thoracic spine shows subacute T8 compression fracture demonstrating 20% loss of height which is new from previous MRI of the lumbar spine on 11/05/17. Multiple remote compression fractures involving T5, T7, T10, T12, L1, L2, L3, and L5. No acute fracture or lumbar spine evident. Severe osteopenia. Pt. seen by Dr. Garber several days ago for epidural injection. Stair-step pain medication for pain mgmt. Pain Management consult ordered and I appreciate the consult. 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 Pt. reports loss of appetite following epidural injection. Lives alone. Mechanically altered soft diet ordered d/t report of choking and aspiration risk. Aspiration precautions. Bedside swallow evaluation. Nutrition consult ordered for supplementation. Monitor I&O and daily weight. (8) Constipation Current Visit: Yes Status: Acute Assessment and plan: Hx of acute on chronic constipation. Continue pts. Colace and add Miralax PRN. Monitor I&O. Qualifiers: Constipation type: unspecified constipation type Qualified Code(s): K59.00 - Constipation, unspecified (9) Anemia Current Visit: Yes Status: Chronic Assessment and plan: Hgb stable. no acute bleeding. Monitor CBC Qualifiers: Anemia type: unspecified type Qualified Code(s): D64.9 - Anemia, unspecified (10) COPD (chronic obstructive pulmonary disease) Current Visit: Yes Status: Chronic Assessment and plan: hx of chronic COPD with chronic respiratory failure on home O2. Initially there was concern for possible HCAP and she was treated with IV Vanco, Zosyn. I do not suspect patient has pneumonia based on her clinical presentation. No abnormal breath sounds, no increased O2 requirements, afebrile, WBC minimally elevated. Stop IV Vanco, Zosyn. Cont inhalers and add DuoNebs Q6HR PRN. Qualifiers: COPD type: unspecified COPD Qualified Code(s): J44.9 - Chronic obstructive pulmonary disease, unspecified (11) DVT prophylaxis Current Visit: Yes Status: Acute Assessment and plan: SCD - Time Spent With Patient Total time spent is greater than 50% in coordination of care (as documented) at patient's floor/unit and/or counseling patient: - Subjective Interval history: Seen and examined at bedside. Patient is new to me, information obtained from chart review and patient report. She is complaining of lower back pain and abdominal pain but overall improved. Pain is controlled. No loose stool. No chest pain or shortness of breath. She is aware of recommendation for SNF and need to obtain prior authorization from insurance. - Constitutional Vitals: Temp Pulse Resp BP Pulse Ox 98.4 F 86 14 142/71 94 03/23/18 16:09 03/23/18 16:09 03/23/18 16:09 03/23/18 16:09 03/23/18 16:09 General appearance: Present: cachectic, cooperative, A&O X 3, answers questions appropriately - Head Head exam: Present: atraumatic, normocephalic - Eye Eye exam: Present: PERRL, conjuntiva pink, sclera anicteric Pupils: Present: PERRL - Neck Neck exam general surgery: Present: supple, trachea midline. Absent: lymphadenopathy - Respiratory Respiratory exam: Present: CTAB. Absent: accessory muscle use, rales, rhonchi, wheezes - Cardiovascular Cardiovascular exam: Present: RRR, +S1, +S2. Absent: diastolic murmur, gallop, rubs, systolic murmur - GI/Abdominal GI/Abdominal exam: Present: normal bowel sounds, soft, no peritoneal signs. Absent: distended, tenderness - Extremities Exam Extremities exam: Present: warm, radial pulses palpable and symmetrical. Absent : calf tenderness, cyanotic, pedal edema - Neurological Exam Neurological exam: Present: CN II-XII intact, oriented X3, no focal deficits. Absent: pronater drift, facial droop, speech deficit - Skin Skin exam: Present: dry, intact Internal Medicine: Result - Labs CBC & Chem 7: 03/23/18 04:15 03/23/18 04:15 Labs: Short CBC 03/23/18 Range/Units 04:15 WBC 13.5 H (4.3-11.1) K/mcL Hgb 9.3 L (11.5-15.4) g/dL Hct 28.8 L (35.3-44.9) % Plt Count 288 (140-400) K/mcL Neutrophils # 11.3 H (1.6-8.9) K/mcL BMP 03/23/18 04:15 Sodium 141 Potassium 3.2 L Chloride 108 H Carbon Dioxide 31 H BUN 11 Creatinine 0.57 L Glucose 102 Calcium 7.3 L - Impressions Impressions Chest X-Ray 03/22/18 11:50 IMPRESSION: Slightly increased right mid to lower and left perihilar opacities, which may reflect pneumonia in the appropriate clinical setting. Probable small right pleural effusion. D/ / 03/22/2018 18:18:18 Belkis Smyth MD / bcarter Interpreting Provider: Belkis Smyth MD - VTE Documentation of Mechanical Device: Graduated compression elastic hosiery Consult Discharge Plan - Plan Referrals: Ian Muse Jr, MD [Primary Care Provider] -
[2018-03-23] MEDS: *HR* OxyCODONE Immed Rel 5 MG TABLET PO PRN (21:14)
[2018-03-24] MEDS: *HR* HYDROcodone/Acet 7.5/325 mg TABLET PO PRN ×4 (05:23→20:15)
[2018-03-24 06:11] LABS: Basophils % 0.3 %; Eosinophils # 0.8 K/mcL (0.0-0.6); Eosinophils % 6.7 %; Hematocrit 27.6 % (35.3-44.9); Immature Granulocytes % 0.5 % (0-4); Lymphocytes # 1.1 K/mcL (0.6-4.6); Mean Corpuscular HGB Conc 32.6 g/dL (31.6-35.5); Mean Corpuscular Hemoglobin 34.1 pg (28.0-33.3); Mean Corpuscular Volume 104.5 fL (83.0-100.0); Mean Platelet Volume 9.4 fL (9.4-12.4); Monocytes # 0.5 K/mcL (0.0-1.3); Monocytes % 4.5 %; Neutrophils # 9.3 K/mcL (1.6-8.9); Platelet Count 318 K/mcL (140-400); Red Blood Count 2.64 M/mcL (3.82-4.97); Red Cell Distribution Width 14.9 % (11.5-14.5)
[2018-03-24 06:32] LABS: BUN/Creatinine Ratio 20 (6-26); Blood Urea Nitrogen 11 mg/dL (8-23); Calcium 7.5 mg/dL (8.6-10.3); Carbon Dioxide 32 mEq/L (23-29); Chloride 108 mEq/L (98-107); Glucose 93 mg/dL (70-105); Osmolality,Calculated 295 (280-300); Potassium 3.2 mEq/L (3.5-5.1); Sodium 143 mEq/L (136-145); eGFR For African Americans > 60 (> 60); eGFR For Non-African Americans > 60 (> 60)
[2018-03-24] MEDS: Lactobacillus 1 EACH CAP.SPRINK PO SCH (08:35)
[2018-03-24] MEDS: Aspirin 81 MG TAB.CHEW PO SCH (08:35)
[2018-03-24] MEDS: Multivit/Ca/Min/Fe/FA 1 TAB TABLET PO SCH (08:35)
[2018-03-24] MEDS: MetroNIDAZOLE 500 MG/100 ML 500 MG/100 ML BAG IVPB SCH ×2 (08:35→17:59)
[2018-03-24] MEDS: Furosemide 40 MG/4 ML VIAL IVP SCH (08:35)
[2018-03-24] MEDS: Fluticasone Propionate Nasal 50 MCG/SPRAY BOTTLE NS SCH (08:36)
--- NOTE | 2018-03-24 15:15 | Internal Med Progress Note ---
Date of Encounter: 03/24/18 Time of Encounter: 15:17 - Assessment and plan (1) Diverticulitis Current Visit: Yes Status: Acute Assessment and plan: ABD CT with diverticulosis of the entire colon concerning for low-grade diverticulitis in the distal ascending and sigmoid colon. Cont cipro, flagyl. Plan for colonoscopy in 4-6 weeks as outpatient. GI followed. (2) Chest pain Current Visit: Yes Status: Acute Assessment and plan: acute chest discomfort that is reproducible in sternum area as well as epigastric area. Serial troponin negative, EKG without acute ST changes. Chest CTA negative for pulmonary embolism. Suspect musculoskeletal as pain is reproducible on exam. No further cardiac workup indicated at this time. Qualifiers: Chest pain type: unspecified Qualified Code(s): R07.9 - Chest pain, unspecified (3) HTN (hypertension) Current Visit: Yes Status: Chronic Assessment and plan: Hx of chronic HTN but not on treatment. BP variable but acceptable. Hold on initiating antihypertensives at this time. Monitor BP and adjust medication regimen PRN Qualifiers: Hypertension type: essential hypertension Qualified Code(s): I10 - Essential (primary) hypertension (4) HLD (hyperlipidemia) Current Visit: Yes Status: Chronic Assessment and plan: per hx. Cont home statin Qualifiers: Hyperlipidemia type: pure hypercholesterolemia Qualified Code(s): E78.00 - Pure hypercholesterolemia, unspecified; E78.0 - Pure hypercholesterolemia (5) GERD (gastroesophageal reflux disease) Current Visit: Yes Status: Chronic Assessment and plan: hx of chronic GERD. continue po protonix. Zofran 4 mg IVP Q6HR for N/V. Qualifiers: Esophagitis presence: esophagitis presence not specified Qualified Code(s) : K21.9 - Gastro-esophageal reflux disease without esophagitis (6) Osteoporosis Current Visit: Yes Status: Chronic Assessment and plan: Hx of chronic osteoporosis w/chronic fxs present in multiple locations. CT of cervical spine shows cervical levoconvex scoliosis with multilevel degenerative changes resulting in canal and foraminal stenosis. Multilevel 1-[address] of the thoracic spine shows subacute T8 compression fracture demonstrating 20% loss of height which is new from previous MRI of the lumbar spine on 11/05/17. Multiple remote compression fractures involving T5, T7, T10, T12, L1, L2, L3, and L5. No acute fracture or lumbar spine evident. Severe osteopenia. Pt. seen by Dr. Garber several days ago for epidural injection. Stair-step pain medication for pain mgmt. Pain Management consult ordered and I appreciate the consult. 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 Pt. reports loss of appetite following epidural injection. Lives alone. Mechanically altered soft diet ordered d/t report of choking and aspiration risk. Aspiration precautions. (8) Constipation Current Visit: Yes Status: Acute Assessment and plan: Hx of acute on chronic constipation. Continue pts. Colace and add Miralax PRN. Monitor I&O. Qualifiers: Constipation type: unspecified constipation type Qualified Code(s): K59.00 - Constipation, unspecified (9) Anemia Current Visit: Yes Status: Chronic Assessment and plan: Hgb stable. no acute bleeding. Monitor CBC Qualifiers: Anemia type: unspecified type Qualified Code(s): D64.9 - Anemia, unspecified (10) COPD (chronic obstructive pulmonary disease) Current Visit: Yes Status: Chronic Assessment and plan: hx of chronic COPD with chronic respiratory failure on home O2. Initially there was concern for possible HCAP and she was treated with IV Vanco, Zosyn. I do not suspect patient has pneumonia based on her clinical presentation. No abnormal breath sounds, no increased O2 requirements, afebrile, WBC minimally elevated. Stop IV Vanco, Zosyn. Cont inhalers and add DuoNebs Q6HR PRN. Qualifiers: COPD type: unspecified COPD Qualified Code(s): J44.9 - Chronic obstructive pulmonary disease, unspecified (11) Severe protein-calorie malnutrition Current Visit: Yes Status: Acute Assessment and plan: Severe Protein Calorie Malnutrition related to chronic respiratory failure; 6 lbs weight loss in 2 months, BMI 14, visual loss of fat stores orbital region, face, and neck. Cont nutritional supplements. (12) DVT prophylaxis Current Visit: Yes Status: Acute Assessment and plan: SCD - Time Spent With Patient Total time spent is greater than 50% in coordination of care (as documented) at patient's floor/unit and/or counseling patient: - Subjective Interval history: Seen and examined at bedside. She complains of chronic back pain and anxiety but overall feels better. She is aware that we are waiting on prior authorization from insurance for SNF placement. - Constitutional Vitals: Temp Pulse Resp BP Pulse Ox 98.7 F 91 16 171/80 97 03/24/18 15:09 03/24/18 15:09 03/24/18 15:09 03/24/18 15:09 03/24/18 15:09 General appearance: Present: cachectic, cooperative, A&O X 3, answers questions appropriately - Head Head exam: Present: atraumatic, normocephalic - Eye Eye exam: Present: PERRL, conjuntiva pink, sclera anicteric Pupils: Present: PERRL - Neck Neck exam general surgery: Present: supple, trachea midline. Absent: lymphadenopathy - Respiratory Respiratory exam: Present: CTAB. Absent: accessory muscle use, rales, rhonchi, wheezes - Cardiovascular Cardiovascular exam: Present: RRR, +S1, +S2. Absent: diastolic murmur, gallop, rubs, systolic murmur - GI/Abdominal GI/Abdominal exam: Present: normal bowel sounds, soft, no peritoneal signs. Absent: distended, tenderness - Extremities Exam Extremities exam: Present: warm, radial pulses palpable and symmetrical. Absent : calf tenderness, cyanotic, pedal edema - Neurological Exam Neurological exam: Present: CN II-XII intact, oriented X3, no focal deficits. Absent: pronater drift, facial droop, speech deficit - Skin Skin exam: Present: dry, intact Internal Medicine: Result - Labs CBC & Chem 7: 03/24/18 05:54 03/24/18 05:54 Labs: Short CBC 03/24/18 Range/Units 05:54 WBC 11.7 H (4.3-11.1) K/mcL Hgb 9.0 L (11.5-15.4) g/dL Hct 27.6 L (35.3-44.9) % Plt Count 318 (140-400) K/mcL Neutrophils # 9.3 H (1.6-8.9) K/mcL BMP 03/24/18 05:54 Sodium 143 Potassium 3.2 L Chloride 108 H Carbon Dioxide 32 H BUN 11 Creatinine 0.55 L Glucose 93 Calcium 7.5 L - VTE Documentation of Mechanical Device: Graduated compression elastic hosiery Consult Discharge Plan - Plan Referrals: Ian Muse Jr, MD [Primary Care Provider] -
[2018-03-25] MEDS: *HR* OxyCODONE Immed Rel 5 MG TABLET PO PRN ×3 (01:01→13:48)
[2018-03-25] MEDS: MetroNIDAZOLE 500 MG/100 ML 500 MG/100 ML BAG IVPB SCH ×2 (01:09→07:39)
[2018-03-25 02:08] LABS: Basophils % 0.4 %; Eosinophils # 0.7 K/mcL (0.0-0.6); Eosinophils % 6.4 %; Hematocrit 28.4 % (35.3-44.9); Hemoglobin 9.2 g/dL (11.5-15.4); Immature Granulocytes % 0.4 % (0-4); Lymphocytes # 1.1 K/mcL (0.6-4.6); Lymphocytes % 9.9 %; Mean Corpuscular HGB Conc 32.4 g/dL (31.6-35.5); Mean Corpuscular Hemoglobin 34.1 pg (28.0-33.3); Mean Corpuscular Volume 105.2 fL (83.0-100.0); Mean Platelet Volume 9.1 fL (9.4-12.4); Monocytes # 0.8 K/mcL (0.0-1.3); Neutrophils # 8.3 K/mcL (1.6-8.9); Platelet Count 298 K/mcL (140-400); Red Cell Distribution Width 14.9 % (11.5-14.5); Segmented Neutrophils % 75.9 %
[2018-03-25 02:32] LABS: BUN/Creatinine Ratio 25 (6-26); Blood Urea Nitrogen 13 mg/dL (8-23); Calcium 7.9 mg/dL (8.6-10.3); Carbon Dioxide 31 mEq/L (23-29); Chloride 108 mEq/L (98-107); Glucose 104 mg/dL (70-105); Osmolality,Calculated 294 (280-300); Sodium 142 mEq/L (136-145); eGFR For African Americans > 60 (> 60); eGFR For Non-African Americans > 60 (> 60)
[2018-03-25] MEDS: *HR* HYDROcodone/Acet 7.5/325 mg TABLET PO PRN ×3 (06:01→15:07)
[2018-03-25] MEDS: Aspirin 81 MG TAB.CHEW PO SCH (07:39)
[2018-03-25] MEDS: Lactobacillus 1 EACH CAP.SPRINK PO SCH (07:39)
[2018-03-25] MEDS: Multivit/Ca/Min/Fe/FA 1 TAB TABLET PO SCH (07:39)
[2018-03-25] MEDS: Fluticasone Propionate Nasal 50 MCG/SPRAY BOTTLE NS SCH (07:40)
[2018-03-25] MEDS ORDERED: Furosemide 20 MG TABLET PO SCH (09:00)
[2018-03-25 10:57] VITALS: BP 170/90
--- NOTE | 2018-03-25 13:30 | Discharge Summary ---
Orders not resulted at time of discharge: Pending orders 03/26/18 04:00 Basic Metabolic Panel AM 0400 CBC [Complete Blood Count] [HEME] AM 0400 03/27/18 04:00 Basic Metabolic Panel AM 0400 CBC [Complete Blood Count] [HEME] AM 0400 Date of Encounter: 03/25/18 Time of Encounter: 13:30 - Discharge Diagnosis (1) Diverticulitis Priority: Primary Status: Acute Assessment and Plan: ABD CT with diverticulosis of the entire colon concerning for low-grade diverticulitis in the distal ascending and sigmoid colon. Treated with IV cipro , flagyl. Change to PO at discharge, to complete total course of 10 days. Plan for colonoscopy in 4-6 weeks as outpatient. GI followed. (2) Chest pain Priority: Primary Status: Acute Assessment and Plan: acute chest discomfort that is reproducible in sternum area as well as epigastric area. Serial troponin negative, EKG without acute ST changes. Chest CTA negative for pulmonary embolism. Suspect musculoskeletal as pain is reproducible on exam. No further cardiac workup indicated at this time. Qualifiers: Chest pain type: unspecified Qualified Code(s): R07.9 - Chest pain, unspecified (3) HTN (hypertension) Priority: Primary Status: Acute Assessment and Plan: Hx of chronic HTN but not on treatment. BP uncontrolled this hospitalization. Start amlodipine. BP can be monitored at SNF Qualifiers: Hypertension type: essential hypertension Qualified Code(s): I10 - Essential (primary) hypertension (4) HLD (hyperlipidemia) Priority: Primary Status: Chronic Assessment and Plan: per hx. Cont home statin Qualifiers: Hyperlipidemia type: pure hypercholesterolemia Qualified Code(s): E78.00 - Pure hypercholesterolemia, unspecified; E78.0 - Pure hypercholesterolemia (5) GERD (gastroesophageal reflux disease) Priority: Primary Status: Chronic Assessment and Plan: hx of chronic GERD. Cont PPI Qualifiers: Esophagitis presence: esophagitis presence not specified Qualified Code(s) : K21.9 - Gastro-esophageal reflux disease without esophagitis (6) Osteoporosis Priority: Primary Status: Chronic Assessment and Plan: hx of chronic osteoporosis w/chronic fxs present in multiple locations. CT of cervical spine shows cervical levoconvex scoliosis with multilevel degenerative changes resulting in canal and foraminal stenosis. Multilevel 1-[address] of the thoracic spine shows subacute T8 compression fracture demonstrating 20% loss of height which is new from previous MRI of the lumbar spine on 11/05/17. Multiple remote compression fractures involving T5, T7, T10, T12, L1, L2, L3, and L5. No acute fracture or lumbar spine evident. Severe osteopenia. S/p recent outpatient epidural injection. Cont pain medication regimen. Follow-up with pain management outpatient. Qualifiers: Osteoporosis type: unspecified Presence of current pathological fracture: with current pathological fracture Encounter type: initial encounter Qualified Code(s): M80.00XA - Age-related osteoporosis with current pathological fracture, unspecified site, initial encounter for fracture (7) Constipation Priority: Primary Status: Acute Assessment and Plan: Hx of acute on chronic constipation. Cont colace, miralax Qualifiers: Constipation type: unspecified constipation type Qualified Code(s): K59.00 - Constipation, unspecified (8) Anemia Priority: Primary Status: Chronic Assessment and Plan: Hgb stable. no acute bleeding. Qualifiers: Anemia type: unspecified type Qualified Code(s): D64.9 - Anemia, unspecified (9) COPD (chronic obstructive pulmonary disease) Priority: Primary Status: Chronic Assessment and Plan: hx of chronic COPD with chronic respiratory failure on home O2. Initially there was concern for possible HCAP and she was treated with IV Vanco, Zosyn. I do not suspect patient has pneumonia based on her clinical presentation. No abnormal breath sounds, no increased O2 requirements, afebrile, WBC minimally elevated. Stop IV Vanco, Zosyn. Cont inhalers Qualifiers: COPD type: unspecified COPD Qualified Code(s): J44.9 - Chronic obstructive pulmonary disease, unspecified (10) Severe protein-calorie malnutrition Priority: Primary Status: Acute Assessment and Plan: Severe Protein Calorie Malnutrition related to chronic respiratory failure; 6 lbs weight loss in 2 months, BMI 14, visual loss of fat stores orbital region, face, and neck. Cont nutritional supplements. Hospital course: See assessment and plan for hospital course Discharge discussed with: patient (Seen and examined at bedside. Patient is new to me, information obtained from chart review and patient report. Complains of chronic lower back pain) - Time Spent with Patient Total time spent providing and/or coordinating discharge services: - Discharge Medications Home Medications: Albuterol Sulfate [Proair Hfa] 2 puff IH Q4H PRN 05/15/17 [History] Aspirin 81 mg PO DAILY 05/15/17 [History] Calcium Carbonate [Calcium] 1,000 mg PO DAILY 05/15/17 [History] Fluticasone Propionate Nasal [Flonase] 1 spray NS DAILY 05/15/17 [History] Multivitamin [Multi-Day Vitamins] 1 tab PO DAILY 05/15/17 [History] Naproxen Sodium [Aleve] 220 - 440 mg PO BID PRN 05/15/17 [History] Omeprazole [PriLOSEC] 20 mg PO DAILY 05/15/17 [History] Propylene Glycol/Peg 400 [Systane 0.3-0.4% Eye Drops] 1 drop BOTH EYES Q6H PRN 05/15/17 [History] Simvastatin [Zocor] 10 mg PO HS 05/15/17 [History] Zoledronic Acid (Reclast) [Reclast Premix 5 MG/100 ML] 5 mg IV [id number] [History] Docusate [Colace] 100 mg PO BID PRN 01/20/18 [History] Furosemide [Lasix] 20 mg PO DAILY 01/20/18 [History] Oxygen 2 l NS AD 01/20/18 [History] Ciprofloxacin HCl [Cipro] 500 mg PO BID 7 Days #14 tablet 03/25/18 [Rx] HYDROcodone/Acet 7.5/325 mg [[place] 7.5-325 mg] 1 tab PO Q4H PRN 2 Days #8 tablet 03/25/18 [Rx] OxyCODONE Immed Rel [Roxicodone 5 MG] 10 mg PO Q6HR PRN 2 Days #16 tablet [Rx] amLODIPine [Norvasc] 10 mg PO DAILY #30 tablet 03/25/18 [Rx] metroNIDAZOLE [Flagyl] 500 mg PO TID 7 Days #21 tablet 03/25/18 [Rx] Allergies/Adverse Reactions: 3 Allergy/AdvReac Type Severity Reaction Status Date / Time No Known Allergies Allergy Verified 03/20/18 16:05 Date of admission: 03/20/18 17:40 Primary care physician: Ian Muse Jr, MD Consults: 03/20/18 17:53 Consult to Pain Management [CONS] Routine Consulting Provider: Pain Mgt Interventional Vandana Reason for Consult: Patient suffers from chronic all-over body pain d/t multiple chronic fxs. States she had epidural injection from Dr. Garber several days ago and has not responded well to injection. Call Completed: No 03/20/18 17:54 Consult to Nutrition [CONS] Routine Comment: Patient prefers chocolate-flavored supplement Consulting Provider: NUTRITION Reason for Dietary Consult: PO Supplementation 03/21/18 12:09 Consult to Physical Therapy [CONS] Routine Comment: Evaluate, develop and implement POC Reason for Consult: deconditioning Does patient have active BEDREST order?: No Is patient medically & hemodynamically stable?: Yes 03/22/18 08:27 Consult to Gastroenterology [CONS] Routine Consulting Provider: Gastroenterology Vandana Reason for Consult: Diverticulitis Call Completed: Yes 03/23/18 09:40 Consult to Occupational Therapy [CONS] Routine Comment: Evaluate, develop and implement POC Reason for Consult: eval Does patient have active BEDREST order?: No Is patient medically & hemodynamically stable?: Yes Patient assessed for mobility or mobilized this visit?: Yes Discharging clinician: Bryanna Meza Anticipated date of discharge: 03/25/18 - Constitutional Vitals: Temp Pulse Resp BP Pulse Ox 98.1 F 94 15 170/90 96 03/25/18 10:56 03/25/18 10:56 03/25/18 10:56 03/25/18 10:56 03/25/18 10:56 General appearance: Present: cachectic, cooperative, A&O X 3, answers questions appropriately - Head Head exam: Present: atraumatic, normocephalic - Eye Eye exam: Present: PERRL, conjuntiva pink, sclera anicteric Pupils: Present: PERRL - Neck Neck exam general surgery: Present: supple, trachea midline. Absent: lymphadenopathy - Respiratory Respiratory exam: Present: CTAB. Absent: accessory muscle use, rales, rhonchi, wheezes - Cardiovascular Cardiovascular exam: Present: RRR, +S1, +S2. Absent: diastolic murmur, gallop, rubs, systolic murmur - GI/Abdominal GI/Abdominal exam: Present: normal bowel sounds, soft, no peritoneal signs. Absent: distended, tenderness - Extremities Exam Extremities exam: Present: warm, radial pulses palpable and symmetrical. Absent : calf tenderness, cyanotic, pedal edema - Neurological Exam Neurological exam: Present: CN II-XII intact, oriented X3, no focal deficits. Absent: pronater drift, facial droop, speech deficit - Skin Skin exam: Present: dry, intact - Patient Status Disposition: Transfer SNF Condition: Good Functional capacity at discharge: uses cane/walker Overall status at discharge: patient is progressing back to baseline - Discharge Instructions Follow Up With: Ian Muse Jr, MD [Primary Care Provider] - Harjinder Garber DO [Partnered Physician] - (Please call the office for follow-up appointment within 1 week) Forms: ED Satisfaction Letter - Diet and Activity Activity: as per physical therapy Diet: regular diet - VTE Documentation of Mechanical Device: Intermittent pneumatic compression device
[2018-03-25] MEDS ORDERED: amLODIPine 5 MG TABLET PO SCH (13:45)
--- NOTE | 2018-03-25 14:29 | Physician Discharge Referral ---
ExtendedCare Referral Info Transfer To: SNF Provider in Charge: Bryanna Meza CNP Provider in Charge after Transfer: PCP Institutional Level of Care: Skilled - Diagnosis (1) Diverticulitis Status: Acute (2) Chest pain Status: Acute (3) HTN (hypertension) Status: Acute (4) HLD (hyperlipidemia) Status: Chronic (5) GERD (gastroesophageal reflux disease) Status: Chronic (6) Osteoporosis Status: Chronic (7) Constipation Status: Acute (8) Anemia Status: Chronic (9) COPD (chronic obstructive pulmonary disease) Status: Chronic (10) Severe protein-calorie malnutrition Status: Acute - Transfer Medications Prescriptions: OxyCODONE Immed Rel [Roxicodone 5 MG] 10 mg PO Q6HR PRN 2 Days #16 tablet PRN Reason: Severe Pain amLODIPine [Norvasc] 10 mg PO DAILY #30 tablet Ciprofloxacin HCl [Cipro] 500 mg PO BID 7 Days #14 tablet HYDROcodone/Acet 7.5/325 mg [[place] 7.5-325 mg] 1 tab PO Q4H PRN 2 Days #8 tablet PRN Reason: Pain metroNIDAZOLE [Flagyl] 500 mg PO TID 7 Days #21 tablet Home Medications: Albuterol Sulfate [Proair Hfa] 2 puff IH Q4H PRN 05/15/17 [History] Aspirin 81 mg PO DAILY 05/15/17 [History] Calcium Carbonate [Calcium] 1,000 mg PO DAILY 05/15/17 [History] Fluticasone Propionate Nasal [Flonase] 1 spray NS DAILY 05/15/17 [History] Multivitamin [Multi-Day Vitamins] 1 tab PO DAILY 05/15/17 [History] Naproxen Sodium [Aleve] 220 - 440 mg PO BID PRN 05/15/17 [History] Omeprazole [PriLOSEC] 20 mg PO DAILY 05/15/17 [History] Propylene Glycol/Peg 400 [Systane 0.3-0.4% Eye Drops] 1 drop BOTH EYES Q6H PRN 05/15/17 [History] Simvastatin [Zocor] 10 mg PO HS 05/15/17 [History] Zoledronic Acid (Reclast) [Reclast Premix 5 MG/100 ML] 5 mg IV [id number] [History] Docusate [Colace] 100 mg PO BID PRN 01/20/18 [History] Furosemide [Lasix] 20 mg PO DAILY 01/20/18 [History] Oxygen 2 l NS AD 01/20/18 [History] Ciprofloxacin HCl [Cipro] 500 mg PO BID 7 Days #14 tablet 03/25/18 [Rx] HYDROcodone/Acet 7.5/325 mg [[place] 7.5-325 mg] 1 tab PO Q4H PRN 2 Days #8 tablet 03/25/18 [Rx] OxyCODONE Immed Rel [Roxicodone 5 MG] 10 mg PO Q6HR PRN 2 Days #16 tablet [Rx] amLODIPine [Norvasc] 10 mg PO DAILY #30 tablet 03/25/18 [Rx] metroNIDAZOLE [Flagyl] 500 mg PO TID 7 Days #21 tablet 03/25/18 [Rx] Allergies/Adverse Reactions: 3 Allergy/AdvReac Type Severity Reaction Status Date / Time No Known Allergies Allergy Verified 03/20/18 16:05 - Respiratory Orders Oxygen / L per min (2) Smoking Cessation: Smoking cessation has been advised. For more information, call the [place] Tobacco Quit Line at 1-343-RAKC-NOW. - Advance Directives Code Status: DNR-Arrest - Mobility Orders Ambulate - Rehabiliation Orders Rehab Potential: Fair Rehab Orders: Evaluation for Physical Therapy, Evaluation for Occupational Therapy - Diet Orders Regular CERTIFICATION: I certify that the transfer of the above named patient to an Extended Care Facility is necessary for the continuing treatment of the diagnosis listed. The above information is true and accurate reflection of patient's current condition. Confidential - Redisclosure prohibited without a patient's written consent.
== END 2018-03-25 15:50 ==
LOC: EMEROO 12:24 → 3NENU 12:24 → SUATTDRO 17:40 → 3NENU 17:54 → 3BNU 03-22 11:14
PROVIDERS: ADMIT Student in an Organized Health Care Education/Training Program; ATTEND Student in an Organized Health Care Education/Training Program

== ENCOUNTER 2018-08-09 11:35 | Inpatient (IN) ==
--- NOTE | 2018-08-09 11:52 | Emergency Department Note ---
Disposition Clinical Impression: HCAP (healthcare-associated pneumonia) Anemia Qualifiers: Anemia type: unspecified type Qualified Code(s): D64.9 - Anemia, unspecified Altered mental status Qualifiers: Altered mental status type: unspecified Qualified Code(s): R41.82 - Altered mental status, unspecified Disposition: Admitted As Inpatient Condition: Fair Time of Disposition: 15:40 General Adult HPI - General Stated complaint: AMS Time Seen by Provider: 08/09/18 11:41 Source: patient, EMS Mode of arrival: EMS Limitations: no limitations Nursing Notes Reviewed: Yes Vital Signs Reviewed: Yes - History of Present Illness HPI Narrative: Patient is an 88-year-old female presenting with AMS to the emergency department. Patient comes from nursing facility. Patient was at her facility when EMS was called as patient was found to have hemoglobin this morning of 7.5 and increased confusion. Patient states that she does not feel more confused than usual, does state that at times she will feel a little bit altered, denies any recent fall. She states that she is not having any weakness, sensation changes or numbness tingling that is outside of her normal. She currently states that she has had a slight cough, no production, no fever or chills. She states that she is currently not on any anticoagulation medications. She has chronic "weeping wounds on her upper and lower extremities ". She states that she has these wounds bandaged multiple times per week. She denies any pain to that area. She currently denies any abdominal pain, nausea or vomiting. She denies any chest pain. Has had increased shortness of breath. She is currently on 2 L nasal cannula of oxygen at her nursing facility, has been increased to 3 L over the past few days. She denies any blood in her stool, any vomit or melena. She denies any history of gastrointestinal bleeding. Discussion with family in the room, they stated that the patient has been more confused over the past 5 days, however states that has been progressively improving stating that today she is at baseline. They also did state that over the past week or so she has had decreased oral fluid and food intake. - Related Data Home Medications Medication Instructions Recorded Confirmed Albuterol Sulfate [Proair Hfa] 2 puff IH Q4H PRN 05/15/17 08/09/18 Aspirin 81 mg PO DAILY 05/15/17 08/09/18 Calcium Carbonate [Calcium] 500 mg PO BID 05/15/17 08/09/18 Fluticasone Propionate Nasal 1 spray NS DAILY 05/15/17 08/09/18 [Flonase] Naproxen Sodium [Aleve] 220 - 440 mg PO BID PRN 05/15/17 08/09/18 Omeprazole [PriLOSEC] 20 mg PO DAILY 05/15/17 08/09/18 Simvastatin [Zocor] 10 mg PO HS 05/15/17 08/09/18 Docusate [Colace] 100 mg PO BID PRN 01/20/18 08/09/18 Furosemide [Lasix] 40 mg PO DAILY 01/20/18 08/09/18 Oxygen 2 l NS AD 01/20/18 08/09/18 ALPRAZolam [Xanax 0.25 MG Tablet] 0.25 mg PO BID PRN 08/09/18 08/09/18 Acetaminophen [Tylenol] 650 mg PO Q6HR PRN 08/09/18 08/09/18 Cyanocobalamin (B-12) [Vitamin B12] 1,000 mcg PO DAILY 08/09/18 08/09/18 Ipratropium/Albuterol Neb [Duoneb] 3 ml IH Q6HR PRN 08/09/18 08/09/18 Multivitamin [One Daily 1 tab PO DAILY 08/09/18 08/09/18 Multivitamin] Propylene Glycol/Peg 400 [Systane 1 drop BOTH EYES BID 08/09/18 08/09/18 0.3-0.4% Eye Drops] Tiotropium Br/Olodaterol HCl 2 puff IH DAILY 08/09/18 08/09/18 [Stiolto Respimat Inhal [place]] Trolamine Salicylate/Aloe Vera 1 appl TP BID 08/09/18 08/09/18 [Aspercreme 10%] Previous Rx's Medication Instructions Recorded HYDROcodone/Acet 7.5/325 mg [[place]arrison 1 tab PO Q4H PRN 2 Days #8 tablet 03/25/18 7.5-325 mg] amLODIPine [Norvasc] 10 mg PO DAILY #30 tablet 03/25/18 Allergies Allergy/AdvReac Type Severity Reaction Status Date / Time No Known Allergies Allergy Verified 08/09/18 12:25 All systems ED: reviewed and negative except as stated. Review of Systems: As Per HPI Constitutional: Denies: fever, chills ENT ED: Denies: congestion Cardiovascular: Denies: chest pain, dyspnea on exertion, syncope Respiratory: Reports: cough, dyspnea. Denies: wheezes, hemoptysis Gastrointestinal: Denies: abdominal pain, nausea, vomiting, diarrhea, constipation, hematemesis, melena, hematochezia Genitourinary: Denies: urgency, dysuria, frequency, hematuria Musculoskeletal: Denies: back pain Integumentary: Denies: rash Neurological: Reports: confusion. Denies: headache, weakness, numbness, paresthesias Endocrine: Denies: fatigue Hematological/Lymphatic: Denies: easy bleeding, easy bruising Past Medical History - Past Medical History Attestation: Yes The following information was validated with the patient. Source: patient Medical history: Reports: COPD, fibromyalgia, GERD, hyperlipidemia, hypertension , osteoporosis Surgical history: Reports: cataract Psychiatric history: Reports: no psych history - Social History Smoking Status: Former smoker Smokeless Tobacco Status: No Alcohol use: Reports: none Drug use: Reports: none Physical Exam - General Limitations: no limitations General appearance: alert, in no apparent distress - Head Head exam: atraumatic, normocephalic - Eye Eye exam: Present: normal appearance, PERRL, EOMI - ENT ENT exam: normal exam, mucous membranes moist - Neck Neck exam: Present: normal inspection. Absent: tenderness - Chest Chest inspection: Present: normal inspection, symmetric chest wall rise. Absent : tenderness - Respiratory Respiratory exam: Present: normal lung sounds bilaterally. Absent: respiratory distress, wheezes - Cardiovascular Cardiovascular exam: Present: regular rate, normal rhythm - Abdominal Exam Abdominal exam: Present: soft, Non-Tender. Absent: tenderness, distention, guarding, rebound, rigidity - Extremities Exam Extremities exam: Present: normal inspection. Absent: tenderness, calf tenderness - Expanded Lower Extremity Exam Hip/Pelvis exam: Present: normal inspection, pelvis stable. Absent: tenderness , swelling Neurovascular/Tendon exam: Present: normal capillary refill. Absent: pulse deficit, motor deficit, sensory deficit - Neurological Exam Neurological exam: Present: alert, oriented X3, CN II-XII intact - Expanded Neurological Exam Patient oriented to: Present: person, place Speech: Present: fluid speech Cranial nerves: EOM function (II, III, IV, ): Normal, facial sensation (V): Normal, facial palsy (VII): Normal, gag reflex (IX): Normal, spinal accessory function (XI): Normal, tongue deviation (XII): Normal Motor strength - LUE: 3/5 Motor strength - RUE: 3/5 Motor strength - LLE: 3/5 Motor strength - RLE: 3/5 Sensory exam upper extremity: light touch: Normal Sensory exam lower extremity: light touch: Normal Coma Scale Eye Opening: Spontaneous Coma Scale Motor Response: Obeys Commands Coma Scale Verbal Response: Oriented Coma Scale Total: 15 - Expanded Skin Exam Description: Present: other (Jonathan multiple areas of the body, currently covered in bandages and wrapped. No wound discovered on the right upper extremity, left upper x-ray did show a 3 cm x 1 cm well-healing wound with slight bleeding to the area when pulling on the skin. Well-appearing healing wound to the right lower extremity on the posterior calf, scabbed over now surrounding erythema. Left lower extremity with 2 cm x 2 cm well-appearing healing wound with no surrounding erythema) Course Course Narrative: Workup including CBC, BMP, CT of the head, chest x-ray. Vital Signs Temperature 97.6 F 08/09/18 11:42 Pulse Rate 83 08/09/18 11:42 Respiratory Rate 20 08/09/18 11:42 Blood Pressure 121/72 08/09/18 11:42 O2 Sat by Pulse Oximetry 94 08/09/18 11:42 Temperature 97.7 F 08/09/18 16:47 Pulse Rate 82 08/09/18 16:47 Respiratory Rate 18 08/09/18 16:47 Blood Pressure 95/58 08/09/18 16:47 O2 Sat by Pulse Oximetry 91 08/09/18 16:47 Oxygen Delivery Oxygen Delivery Nasal Cannula Medical Decision Making - MDM Narrative Medical decision making narrative: Patient is an 88 yo female presenting with EMS from nursing facility for low hemoglobin and cough, AMS. Patient was seen and examined on arrival. History is obtained from EMS as well as patient. Patient was sent from nursing facility as her hemoglobin was noted to be low around 7.5. Patient states that she has recently had a slight cough, no fever or chills. She has needed increased oxygen requirement over the past week or so. Currently on 3 L nasal cannula satting around 94%. Physical exam as he feels patient currently wearing 3 L nasal cannula satting at 94% at bedside, heart rate within normal limits, blood pressure normal. Patient is alert and oriented 2, no sensation or focal weakness, no neurological signs or symptoms. GCS of 15. Patient able to move all extremities. Patient does have multiple bandages throughout her lower harris and arms. Chest x-ray does suggest opacity in infiltrate in the right lower lobe. We will start HCAP coverage as patient was recently admitted within the past 3 months to the hospital. As well as living in a [facility]. CT of the head is negative for acute intracranial process. Hemoglobin shows to be 8.5 appears to be chronic and at baseline. Otherwise blood work performed appears to be unremarkable,. To be multiple chronic changes however unchanged. This point in time, discussed with patient on disposition of admission for further evaluation of AMS and HCAP. Spoke with hospitalist at 1450 who agrees to accept patient this point in time. - Medical Records Medical records reviewed: Yes I reviewed the patient's medical records. - Lab Data Lab results reviewed: Yes I reviewed the patient's lab results. Result diagrams: 08/09/18 11:42 08/09/18 11:42 Lab Results 08/09/18 08/09/18 08/09/18 Range/Units 11:42 11:42 11:42 WBC 7.0 (4.3-11.1) K/mcL RBC 2.49 L (3.82-4.97) M/mcL Hgb 8.5 L (11.5-15.4) g/dL Hct 26.8 L (35.3-44.9) % MCV 107.6 H (83.0-100.0) fL MCH 34.1 H (28.0-33.3) pg MCHC 31.7 (31.6-35.5) g/dL RDW 18.3 H (11.5-14.5) % Plt Count 144 (140-400) K/mcL MPV 11.3 (9.4-12.4) fL Immature Gran % 0.3 (0-4) % Seg Neutrophils % 83.6 % Lymphocytes % 13.5 % Monocytes % 2.3 % Eosinophils % 0.3 % Basophils % 0.0 % Neutrophils # 5.9 (1.6-8.9) K/mcL Lymphocytes # 1.0 (0.6-4.6) K/mcL Monocytes # 0.2 (0.0-1.3) K/mcL Eosinophils # 0.0 (0.0-0.6) K/mcL Basophils # 0.0 (0.0-0.2) K/mcL PT 11.3 (9.4-12.1) Seconds INR 1.0 APTT 34.1 (26.0-36.0) Seconds Sodium (136-145) mEq/L Potassium (3.5-5.1) mEq/L Chloride (98-107) mEq/L Carbon Dioxide (23-29) mEq/L BUN (8-23) mg/dL Creatinine (0.60-1.20) mg/dL Est GFR ( Amer) (> 60) Est GFR (Non-Af Amer) (> 60) BUN/Creatinine Ratio (6-26) Glucose (70-105) mg/dL Calculated Osmolality (280-300) Calcium (8.6-10.3) mg/dL Total Bilirubin (0.3-1.0) mg/dL Direct Bilirubin (0.0-0.2) mg/dL Indirect Bilirubin (0.0-1.2) mg/dL AST (13-39) Units/L ALT (7-52) Units/L Alkaline Phosphatase (34-104) Units/L Troponin I (< 0.04) ng/mL Serum Total Protein (6.4-8.9) g/dL Albumin (3.5-5.7) g/dL Globulin (2.4-3.5) g/dL Albumin/Globulin Ratio (1.1-2.2) Lipase (11-82) Units/L Urine Color (Yellow) Urine Clarity (Clear) Urine pH (5.0-8.0) pH Units Ur Specific Vernal (1.010-1.025) Urine Protein (Neg-Trace) mg/dL Urine Glucose (UA) (Normal) mg/dL Urine Ketones (Negative) mg/dL Urine Blood (Negative) Urine Nitrite (Negative) Urine Bilirubin (Negative) Urine Urobilinogen (Normal) mg/dL Ur Leukocyte Esterase (Negative) Ur Culture Indicated? (NO) Urine Opiates Screen Positive H (Lhedrb=937) ng/mL Ur Barbiturates Screen Negative (Ubfnad=902) ng/mL Ur Phencyclidine Scrn Negative (Cutoff=25) ng/mL Ur Amphetamines Screen Negative (Cqgenu=3230) ng/mL U Benzodiazepines Scrn Negative (Mqbtim=217) ng/mL Urine Cocaine Screen Negative (Cutoff= 300) ng/mL U Marijuana (THC) Screen Negative (Cutoff = 50) ng/mL Ur Drug Screen Interp See Below Ethyl Alcohol (Less than 10) mg/dL Blood Type Antibody Screen 08/09/18 08/09/18 08/09/18 Range/Units 11:42 12:16 13:28 WBC (4.3-11.1) K/mcL RBC (3.82-4.97) M/mcL Hgb (11.5-15.4) g/dL Hct (35.3-44.9) % MCV (83.0-100.0) fL MCH (28.0-33.3) pg MCHC (31.6-35.5) g/dL RDW (11.5-14.5) % Plt Count (140-400) K/mcL MPV (9.4-12.4) fL Immature Gran % (0-4) % Seg Neutrophils % % Lymphocytes % % Monocytes % % Eosinophils % % Basophils % % Neutrophils # (1.6-8.9) K/mcL Lymphocytes # (0.6-4.6) K/mcL Monocytes # (0.0-1.3) K/mcL Eosinophils # (0.0-0.6) K/mcL Basophils # (0.0-0.2) K/mcL PT (9.4-12.1) Seconds INR APTT (26.0-36.0) Seconds Sodium 142 (136-145) mEq/L Potassium 4.1 (3.5-5.1) mEq/L Chloride 108 H (98-107) mEq/L Carbon Dioxide 34 H (23-29) mEq/L BUN 37 H (8-23) mg/dL Creatinine 0.91 (0.60-1.20) mg/dL Est GFR ( Amer) > 60 (> 60) Est GFR (Non-Af Amer) 59 L (> 60) BUN/Creatinine Ratio 41 H (6-26) Glucose 75 (70-105) mg/dL Calculated Osmolality 301 H (280-300) Calcium 7.9 L (8.6-10.3) mg/dL Total Bilirubin 0.2 L (0.3-1.0) mg/dL Direct Bilirubin 0.1 (0.0-0.2) mg/dL Indirect Bilirubin 0.1 (0.0-1.2) mg/dL AST 24 (13-39) Units/L ALT 16 (7-52) Units/L Alkaline Phosphatase 143 H (34-104) Units/L Troponin I < 0.03 (< 0.04) ng/mL Serum Total Protein 5.0 L (6.4-8.9) g/dL Albumin 1.8 L (3.5-5.7) g/dL Globulin 3.2 (2.4-3.5) g/dL Albumin/Globulin Ratio 0.6 L (1.1-2.2) Lipase 29 (11-82) Units/L Urine Color Yellow (Yellow) Urine Clarity Clear (Clear) Urine pH 5.5 (5.0-8.0) pH Units Ur Specific Vernal 1.017 (1.010-1.025) Urine Protein Negative (Neg-Trace) mg/dL Urine Glucose (UA) Normal (Normal) mg/dL Urine Ketones Negative (Negative) mg/dL Urine Blood Negative (Negative) Urine Nitrite Negative (Negative) Urine Bilirubin Negative (Negative) Urine Urobilinogen Normal (Normal) mg/dL Ur Leukocyte Esterase Negative (Negative) Ur Culture Indicated? NO (NO) Urine Opiates Screen (Elylmw=900) ng/mL Ur Barbiturates Screen (Jrcqun=210) ng/mL Ur Phencyclidine Scrn (Cutoff=25) ng/mL Ur Amphetamines Screen (Hahqsu=0406) ng/mL U Benzodiazepines Scrn (Zkpwwy=297) ng/mL Urine Cocaine Screen (Cutoff= 300) ng/mL U Marijuana (THC) Screen (Cutoff = 50) ng/mL Ur Drug Screen Interp Ethyl Alcohol < 10 (Less than 10) mg/dL Blood Type O POSITIVE Antibody Screen NEGATIVE - Radiology Data Radiology results reviewed: Yes I reviewed the patient's radiology results. Chest X-Ray 08/09/18 11:42 IMPRESSION: [id number] bilateral pleural effusions, right larger than left, with associated patchy/hazy airspace opacities to the right lower lung zone which may relate to atelectasis or infiltrate. D/ 08/09/2018 12:05:05 Mango Cooper MD / [facility] Interpreting Provider: Mango Cooper MD - EKG Data EKG #1 EKG attestation: Yes I reviewed and interpreted this EKG. EKG results narrative: EKG performed at 1223 with a ventricular rate of 92, regular rhythm, normal axis, low voltage throughout, purulent 36, QRS is 64, QT 446, QTC of 552. No acute ischemic changes are noted, appears overall unchanged from previous S.B.A.R. - S.B.A.Jessica Situation: Demographics, MOA Background: Presenting Complaint, Relevant PMH, Meds, & Allergies Assessment: Vital Signs, Course and respsone to treatment, Exam Concerns, Patient/Family Expectation, Pertinant Lab Results, Outstanding Labs Recommendation: Barrier(s) to disposition, Recommendation based on pending studies, treatments, or consults S.B.A.RRowena Report Given to: Dr. Bryan NugentASalina Repor Time: 14:50 (accepted)
[2018-08-09] MEDS ORDERED: Piperacillin/Tazobactam 3.375 GM in 0.9 % Sodium Chloride Mini Bag 100 ML IVPB ONE (12:28)
[2018-08-09] MEDS ORDERED: Azithromycin 500 MG in D5% in Water 250 ML IVPB ONE (12:29)
[2018-08-09 12:42] LABS: Eosinophils % 0.3 %; Hematocrit 26.8 % (35.3-44.9); Hemoglobin 8.5 g/dL (11.5-15.4); Immature Granulocytes % 0.3 % (0-4); Lymphocytes % 13.5 %; Mean Corpuscular HGB Conc 31.7 g/dL (31.6-35.5); Mean Corpuscular Hemoglobin 34.1 pg (28.0-33.3); Mean Corpuscular Volume 107.6 fL (83.0-100.0); Mean Platelet Volume 11.3 fL (9.4-12.4); Monocytes # 0.2 K/mcL (0.0-1.3); Monocytes % 2.3 %; Neutrophils # 5.9 K/mcL (1.6-8.9); Platelet Count 144 K/mcL (140-400); Red Blood Count 2.49 M/mcL (3.82-4.97); Red Cell Distribution Width 18.3 % (11.5-14.5); Segmented Neutrophils % 83.6 %
[2018-08-09 12:48] LABS: Prothrombin Time 11.3 Seconds (9.4-12.1)
[2018-08-09 12:51] LABS: Activated Partial Thrombo Time 34.1 Seconds (26.0-36.0)
[2018-08-09 12:54] LABS: Troponin I < 0.03 ng/mL (< 0.04)
[2018-08-09 12:55] LABS: Alanine Aminotransferase 16 Units/L (7-52); Albumin 1.8 g/dL (3.5-5.7); Albumin/Globulin Ratio 0.6 (1.1-2.2); Alkaline Phosphatase 143 Units/L (34-104); Aspartate Amino Transferase 24 Units/L (13-39); BUN/Creatinine Ratio 41 (6-26); Bilirubin,Direct 0.1 mg/dL (0.0-0.2); Bilirubin,Indirect 0.1 mg/dL (0.0-1.2); Bilirubin,Total 0.2 mg/dL (0.3-1.0); Blood Urea Nitrogen 37 mg/dL (8-23); Calcium 7.9 mg/dL (8.6-10.3); Carbon Dioxide 34 mEq/L (23-29); Chloride 108 mEq/L (98-107); Ethanol < 10 mg/dL (Less than 10); Globulin 3.2 g/dL (2.4-3.5); Glucose 75 mg/dL (70-105); Lipase 29 Units/L (11-82); Osmolality,Calculated 301 (280-300); Potassium 4.1 mEq/L (3.5-5.1); Sodium 142 mEq/L (136-145); eGFR For Non-African Americans 59 (> 60)
[2018-08-09 13:37] LABS: Bilirubin,Urine Negative (Negative); Blood,Urine Negative (Negative); Clarity,Urine Clear (Clear); Color,Urine Yellow (Yellow); Glucose,Urine (UA) Normal (Normal); Ketones,Urine Negative (Negative); Leukocyte Esterase,Urine Negative (Negative); Nitrite,Urine Negative (Negative); PH,Urine 5.5 pH Units (5.0-8.0); Protein,Urine Negative (Neg-Trace); Specific Gravity,Urine 1.017 (1.010-1.025); Urobilinogen,Urine Normal (Normal)
[2018-08-09 13:59] LABS: Amphetamine Screen,Urine Negative ng/mL (Cutoff=1000); Barbiturate Screen,Urine Negative ng/mL (Cutoff=200); Benzodiazepines Screen,Urine Negative ng/mL (Cutoff=200); Cannabinoid Screen,Urine Negative ng/mL (Cutoff = 50); Cocaine Screen,Urine Negative ng/mL (Cutoff= 300); Opiate Screen,Urine Positive ng/mL (Cutoff=300); Phencyclidine Screen,Urine Negative ng/mL (Cutoff=25)
--- NOTE | 2018-08-09 14:59 | Emergency Department Note ---
Disposition Clinical Impression: HCAP (healthcare-associated pneumonia) Anemia Qualifiers: Anemia type: unspecified type Qualified Code(s): D64.9 - Anemia, unspecified Altered mental status Qualifiers: Altered mental status type: unspecified Qualified Code(s): R41.82 - Altered mental status, unspecified Disposition: Admitted As Inpatient Condition: Fair General Adult HPI - General Chief complaint: ED Altered Mental Status Stated complaint: AMS Time Seen by Provider: 08/09/18 11:41 Source: patient, EMS Mode of arrival: EMS Limitations: no limitations - History of Present Illness Pain Scale: 5 - Related Data Home Medications Medication Instructions Recorded Confirmed Albuterol Sulfate [Proair Hfa] 2 puff IH Q4H PRN 05/15/17 08/09/18 Aspirin 81 mg PO DAILY 05/15/17 08/09/18 Calcium Carbonate [Calcium] 500 mg PO BID 05/15/17 08/09/18 Fluticasone Propionate Nasal 1 spray NS DAILY 05/15/17 08/09/18 [Flonase] Naproxen Sodium [Aleve] 220 - 440 mg PO BID PRN 05/15/17 08/09/18 Omeprazole [PriLOSEC] 20 mg PO DAILY 05/15/17 08/09/18 Simvastatin [Zocor] 10 mg PO HS 05/15/17 08/09/18 Docusate [Colace] 100 mg PO BID PRN 01/20/18 08/09/18 Furosemide [Lasix] 40 mg PO DAILY 01/20/18 08/09/18 Oxygen 2 l NS AD 01/20/18 08/09/18 ALPRAZolam [Xanax 0.25 MG Tablet] 0.25 mg PO BID PRN 08/09/18 08/09/18 Acetaminophen [Tylenol] 650 mg PO Q6HR PRN 08/09/18 08/09/18 Cyanocobalamin (B-12) [Vitamin B12] 1,000 mcg PO DAILY 08/09/18 08/09/18 Ipratropium/Albuterol Neb [Duoneb] 3 ml IH Q6HR PRN 08/09/18 08/09/18 Multivitamin [One Daily 1 tab PO DAILY 08/09/18 08/09/18 Multivitamin] Propylene Glycol/Peg 400 [Systane 1 drop BOTH EYES BID 08/09/18 08/09/18 0.3-0.4% Eye Drops] Tiotropium Br/Olodaterol HCl 2 puff IH DAILY 08/09/18 08/09/18 [Stiolto Respimat Inhal [place]] Trolamine Salicylate/Aloe Vera 1 appl TP BID 08/09/18 08/09/18 [Aspercreme 10%] Previous Rx's Medication Instructions Recorded HYDROcodone/Acet 7.5/325 mg [[place] 1 tab PO Q4H PRN 2 Days #8 tablet 03/25/18 7.5-325 mg] amLODIPine [Norvasc] 10 mg PO DAILY #30 tablet 03/25/18 Allergies Allergy/AdvReac Type Severity Reaction Status Date / Time No Known Allergies Allergy Verified 08/09/18 12:25 Constitutional: Denies: fever, chills ENT ED: Denies: congestion Cardiovascular: Denies: chest pain, dyspnea on exertion, syncope Respiratory: Reports: cough, dyspnea. Denies: wheezes, hemoptysis Gastrointestinal: Denies: abdominal pain, nausea, vomiting, diarrhea, constipation, hematemesis, melena, hematochezia Genitourinary: Denies: urgency, dysuria, frequency, hematuria Musculoskeletal: Denies: back pain Integumentary: Denies: rash Neurological: Reports: confusion. Denies: headache, weakness, numbness, paresthesias Endocrine: Denies: fatigue Hematological/Lymphatic: Denies: easy bleeding, easy bruising Past Medical History - Past Medical History Medical history: Reports: COPD, fibromyalgia, GERD, hyperlipidemia, hypertension , osteoporosis Surgical history: Reports: cataract Psychiatric history: Reports: no psych history - Social History Smoking Status: Former smoker Smokeless Tobacco Status: No Alcohol use: Reports: none Drug use: Reports: none Physical Exam - General Limitations: no limitations General appearance: alert, in no apparent distress Course Vital Signs Temperature 97.6 F 08/09/18 11:42 Pulse Rate 83 08/09/18 11:42 Respiratory Rate 20 08/09/18 11:42 Blood Pressure 121/72 08/09/18 11:42 O2 Sat by Pulse Oximetry 94 08/09/18 11:42 Temperature 97.7 F 08/09/18 16:47 Pulse Rate 82 08/09/18 16:47 Respiratory Rate 18 08/09/18 16:47 Blood Pressure 95/58 08/09/18 16:47 O2 Sat by Pulse Oximetry 91 08/09/18 16:47 Oxygen Delivery Oxygen Delivery Nasal Cannula Medical Decision Making - Lab Data Result diagrams: 08/09/18 11:42 08/09/18 11:42 Lab Results 08/09/18 08/09/18 08/09/18 Range/Units 11:42 11:42 11:42 WBC 7.0 (4.3-11.1) K/mcL RBC 2.49 L (3.82-4.97) M/mcL Hgb 8.5 L (11.5-15.4) g/dL Hct 26.8 L (35.3-44.9) % MCV 107.6 H (83.0-100.0) fL MCH 34.1 H (28.0-33.3) pg MCHC 31.7 (31.6-35.5) g/dL RDW 18.3 H (11.5-14.5) % Plt Count 144 (140-400) K/mcL MPV 11.3 (9.4-12.4) fL Immature Gran % 0.3 (0-4) % Seg Neutrophils % 83.6 % Lymphocytes % 13.5 % Monocytes % 2.3 % Eosinophils % 0.3 % Basophils % 0.0 % Neutrophils # 5.9 (1.6-8.9) K/mcL Lymphocytes # 1.0 (0.6-4.6) K/mcL Monocytes # 0.2 (0.0-1.3) K/mcL Eosinophils # 0.0 (0.0-0.6) K/mcL Basophils # 0.0 (0.0-0.2) K/mcL PT 11.3 (9.4-12.1) Seconds INR 1.0 APTT 34.1 (26.0-36.0) Seconds Sodium (136-145) mEq/L Potassium (3.5-5.1) mEq/L Chloride (98-107) mEq/L Carbon Dioxide (23-29) mEq/L BUN (8-23) mg/dL Creatinine (0.60-1.20) mg/dL Est GFR ( Amer) (> 60) Est GFR (Non-Af Amer) (> 60) BUN/Creatinine Ratio (6-26) Glucose (70-105) mg/dL Calculated Osmolality (280-300) Calcium (8.6-10.3) mg/dL Total Bilirubin (0.3-1.0) mg/dL Direct Bilirubin (0.0-0.2) mg/dL Indirect Bilirubin (0.0-1.2) mg/dL AST (13-39) Units/L ALT (7-52) Units/L Alkaline Phosphatase (34-104) Units/L Troponin I (< 0.04) ng/mL Serum Total Protein (6.4-8.9) g/dL Albumin (3.5-5.7) g/dL Globulin (2.4-3.5) g/dL Albumin/Globulin Ratio (1.1-2.2) Lipase (11-82) Units/L Urine Color (Yellow) Urine Clarity (Clear) Urine pH (5.0-8.0) pH Units Ur Specific [place] (1.010-1.025) Urine Protein (Neg-Trace) mg/dL Urine Glucose (UA) (Normal) mg/dL Urine Ketones (Negative) mg/dL Urine Blood (Negative) Urine Nitrite (Negative) Urine Bilirubin (Negative) Urine Urobilinogen (Normal) mg/dL Ur Leukocyte Esterase (Negative) Ur Culture Indicated? (NO) Urine Opiates Screen Positive H (Mnhsvr=346) ng/mL Ur Barbiturates Screen Negative (Qgubbh=696) ng/mL Ur Phencyclidine Scrn Negative (Cutoff=25) ng/mL Ur Amphetamines Screen Negative (Bfciub=6352) ng/mL U Benzodiazepines Scrn Negative (Rjuvrr=752) ng/mL Urine Cocaine Screen Negative (Cutoff= 300) ng/mL U Marijuana (THC) Screen Negative (Cutoff = 50) ng/mL Ur Drug Screen Interp See Below Ethyl Alcohol (Less than 10) mg/dL Blood Type Antibody Screen 08/09/18 08/09/18 08/09/18 Range/Units 11:42 12:16 13:28 WBC (4.3-11.1) K/mcL RBC (3.82-4.97) M/mcL Hgb (11.5-15.4) g/dL Hct (35.3-44.9) % MCV (83.0-100.0) fL MCH (28.0-33.3) pg MCHC (31.6-35.5) g/dL RDW (11.5-14.5) % Plt Count (140-400) K/mcL MPV (9.4-12.4) fL Immature Gran % (0-4) % Seg Neutrophils % % Lymphocytes % % Monocytes % % Eosinophils % % Basophils % % Neutrophils # (1.6-8.9) K/mcL Lymphocytes # (0.6-4.6) K/mcL Monocytes # (0.0-1.3) K/mcL Eosinophils # (0.0-0.6) K/mcL Basophils # (0.0-0.2) K/mcL PT (9.4-12.1) Seconds INR APTT (26.0-36.0) Seconds Sodium 142 (136-145) mEq/L Potassium 4.1 (3.5-5.1) mEq/L Chloride 108 H (98-107) mEq/L Carbon Dioxide 34 H (23-29) mEq/L BUN 37 H (8-23) mg/dL Creatinine 0.91 (0.60-1.20) mg/dL Est GFR ( Amer) > 60 (> 60) Est GFR (Non-Af Amer) 59 L (> 60) BUN/Creatinine Ratio 41 H (6-26) Glucose 75 (70-105) mg/dL Calculated Osmolality 301 H (280-300) Calcium 7.9 L (8.6-10.3) mg/dL Total Bilirubin 0.2 L (0.3-1.0) mg/dL Direct Bilirubin 0.1 (0.0-0.2) mg/dL Indirect Bilirubin 0.1 (0.0-1.2) mg/dL AST 24 (13-39) Units/L ALT 16 (7-52) Units/L Alkaline Phosphatase 143 H (34-104) Units/L Troponin I < 0.03 (< 0.04) ng/mL Serum Total Protein 5.0 L (6.4-8.9) g/dL Albumin 1.8 L (3.5-5.7) g/dL Globulin 3.2 (2.4-3.5) g/dL Albumin/Globulin Ratio 0.6 L (1.1-2.2) Lipase 29 (11-82) Units/L Urine Color Yellow (Yellow) Urine Clarity Clear (Clear) Urine pH 5.5 (5.0-8.0) pH Units Ur Specific [place] 1.017 (1.010-1.025) Urine Protein Negative (Neg-Trace) mg/dL Urine Glucose (UA) Normal (Normal) mg/dL Urine Ketones Negative (Negative) mg/dL Urine Blood Negative (Negative) Urine Nitrite Negative (Negative) Urine Bilirubin Negative (Negative) Urine Urobilinogen Normal (Normal) mg/dL Ur Leukocyte Esterase Negative (Negative) Ur Culture Indicated? NO (NO) Urine Opiates Screen (Ykaknq=434) ng/mL Ur Barbiturates Screen (Cmvwlm=914) ng/mL Ur Phencyclidine Scrn (Cutoff=25) ng/mL Ur Amphetamines Screen (Rmheds=1882) ng/mL U Benzodiazepines Scrn (Qvpxsp=212) ng/mL Urine Cocaine Screen (Cutoff= 300) ng/mL U Marijuana (THC) Screen (Cutoff = 50) ng/mL Ur Drug Screen Interp Ethyl Alcohol < 10 (Less than 10) mg/dL Blood Type O POSITIVE Antibody Screen NEGATIVE Attestation Statement - Attestation Attestation: I examined this patient and my medical decision-making was reviewed with the Resident Physician. I agree with the documented findings, disposition and treatment plan as described except to the extent set forth below. Patient presents to the ED with altered mental status. Per EMS she has been more confused. Patient states she feels weak and pain all over. On examination she is in no acute distress. Pupils are pinpoint. She is oriented 2. Moving all extremities. Abdomen soft. Plan. Altered mental status workup. Patient anemic. Hemoglobin is stable. Admitted for further workup. Patient treated for healthcare associated pneumonia. Chest X-Ray 08/09/18 11:42 IMPRESSION: [id number] bilateral pleural effusions, right larger than left, with associated patchy/hazy airspace opacities to the right lower lung zone which may relate to atelectasis or infiltrate. D/ / 08/09/2018 12:05:05 Mango Cooper MD / [facility] Interpreting Provider: Mango Cooper MD Head CT 08/09/18 11:43 IMPRESSION: 1. No evidence of acute intracranial abnormality. 2. Left sphenoid and bilateral mastoid sinus disease as described above. D/ / 08/09/2018 13:21:10 Dayron Kowalski MD / [facility] Interpreting Provider: Dayron Kowalski MD
[2018-08-09] MEDS ORDERED: 0.9 % Sodium Chloride 1,000 ML IVC ONE (15:12)
--- NOTE | 2018-08-09 17:27 | Internal Med History&Physical ---
Date of Encounter: 08/09/18 Time of Encounter: 11:00 Internal Medicine - H&P: HPI Chief complaint: Confusion Admitted From: Long-term Nursing Facility Plans for Post Hospital Care: Transfer Evaluator Transfer Students Care History of present illness: Patient is 88-year-old female with past medical history significant for COPD with chronic respiratory failure (2 L nasal cannula), hypertension, hyperlipidemia and anemia who presents from the [facility] on 08/09/18 due to increased confusion. Patient is a poor historian so not able to give much history and no family present at the bedside. Apparently per ER note, patient was sent from the ECF due to confusion. In the ER, patient was afebrile without leukocytosis and vital signs stable. Urinalysis negative for pyuria. Patient does appear dehydrated on labs with a BUN of [address] of the head showed no acute intracranial abnormalities and chest x-ray showed patchy/hazy airspace opacities in the right lower lobe suspicious for infiltrate. Patient will be admitted to medical surgical floor for treatment of HAP. Past Med Surg Social Fam HX - Past Medical History Medical history: COPD, fibromyalgia, GERD, hyperlipidemia, hypertension, osteoporosis Additional medical history: MULTIPLE FRACTURES- RIBS, SPINE Psychiatric history: no psych history - Past Surgical History Surgical History: cataract Additional surgical history: Cyst removal with carpal tunnel surgery, - Social History Smoking Status: Former smoker Smokeless Tobacco Status: No Alcohol use: none Drug use: none - Family History Father Family Member Ethnicity: Non- Living Status: Hx Family Cardiac Disorders: No Hx Family Respiratory Disorders: No Hx Family Cancer: Yes (Unknown type) Hx Family GI Disorders: No Hx Family Endocrine Disorder: No Hx Family Neuromuscular Disorders: No Hx Family Neurologic Disorders: No Hx Family HEENT Disorders: No Hx Family Autoimmune Disorders: No Internal Medicine - H&P: Meds Albuterol Sulfate [Proair Hfa] 2 puff IH Q4H PRN 05/15/17 [History] Aspirin 81 mg PO DAILY 05/15/17 [History] Calcium Carbonate [Calcium] 500 mg PO BID 05/15/17 [History] Fluticasone Propionate Nasal [Flonase] 1 spray NS DAILY 05/15/17 [History] Naproxen Sodium [Aleve] 220 - 440 mg PO BID PRN 05/15/17 [History] Omeprazole [PriLOSEC] 20 mg PO DAILY 05/15/17 [History] Simvastatin [Zocor] 10 mg PO HS 05/15/17 [History] Docusate [Colace] 100 mg PO BID PRN 01/20/18 [History] Furosemide [Lasix] 40 mg PO DAILY 01/20/18 [History] Oxygen 2 l NS AD 01/20/18 [History] HYDROcodone/Acet 7.5/325 mg [[place] 7.5-325 mg] 1 tab PO Q4H PRN 2 Days #8 tablet 03/25/18 [Rx] amLODIPine [Norvasc] 10 mg PO DAILY #30 tablet 03/25/18 [Rx] ALPRAZolam [Xanax 0.25 MG Tablet] 0.25 mg PO BID PRN 08/09/18 [History] Acetaminophen [Tylenol] 650 mg PO Q6HR PRN 08/09/18 [History] Cyanocobalamin (B-12) [Vitamin B12] 1,000 mcg PO DAILY 08/09/18 [History] Ipratropium/Albuterol Neb [Duoneb] 3 ml IH Q6HR PRN 08/09/18 [History] Multivitamin [One Daily Multivitamin] 1 tab PO DAILY 08/09/18 [History] Propylene Glycol/Peg 400 [Systane 0.3-0.4% Eye Drops] 1 drop BOTH EYES BID 08/09 [History] Tiotropium Br/Olodaterol HCl [Stiolto Respimat Inhal [place]] 2 puff IH DAILY [History] Trolamine Salicylate/Aloe Vera [Aspercreme 10%] 1 appl TP BID 08/09/18 [History] 3 Allergy/AdvReac Type Severity Reaction Status Date / Time No Known Allergies Allergy Verified 08/09/18 12:25 ROS unobtainable: due to mental status All Systems PM: A 10-system review of systems was performed and is negative for pertinent findings except as documented above in the HPI. - Constitutional Vitals: Temp Pulse Resp BP Pulse Ox 97.7 F 82 18 95/58 91 08/09/18 16:47 08/09/18 16:47 08/09/18 16:47 08/09/18 16:47 08/09/18 16:47 General appearance: Present: no acute distress, underweight Exam: As below - Eye Eye exam: Present: normal appearance - ENT ENT exam: Present: mucous membranes dry - Respiratory Respiratory exam: Present: CTAB. Absent: accessory muscle use, rales, rhonchi, wheezes - Cardiovascular Cardiovascular exam: Present: RRR, +S1, +S2. Absent: diastolic murmur, gallop, rubs, systolic murmur - GI/Abdominal GI/Abdominal exam: Present: normal bowel sounds, soft, no peritoneal signs. Absent: distended, tenderness - Extremities Exam Extremities exam: Absent: pedal edema - Neurological Exam Neurological exam: Present: alert - Psychiatric Psychiatric exam: Present: normal mood - Skin Skin exam: Present: pallor Internal Med - H&P Results - Labs CBC & Chem 7: 08/09/18 11:42 08/09/18 11:42 - Assessment and plan (1) HCAP (healthcare-associated pneumonia) Current Visit: Yes Status: Acute Assessment and plan: Patient is a poor historian therefore history difficult but chest x-ray showed patchy/hazy airspace opacities in the right lower lobe suspicious for infiltrate. Respiratory panel and consult streptococcal/Legionella antigen pending Will continue coverage for HAP. (2) Altered mental status Current Visit: Yes Status: Acute Assessment and plan: Resolved as patient now alert and oriented 3 Continue to monitor Qualifiers: Altered mental status type: unspecified Qualified Code(s): R41.82 - Altered mental status, unspecified (3) Anemia Current Visit: Yes Status: Chronic Assessment and plan: Stable; continue to monitor Qualifiers: Anemia type: unspecified type Qualified Code(s): D64.9 - Anemia, unspecified (4) HTN (hypertension) Current Visit: No Status: Acute Assessment and plan: Controlled; continue home medications Qualifiers: Hypertension type: essential hypertension Qualified Code(s): I10 - Essential (primary) hypertension (5) Severe protein-calorie malnutrition Current Visit: No Status: Acute Assessment and plan: Consult Nutrition (6) COPD (chronic obstructive pulmonary disease) Current Visit: No Status: Chronic Assessment and plan: Patient not and COPD exacerbation; continue home meds Qualifiers: COPD type: unspecified COPD Qualified Code(s): J44.9 - Chronic obstructive pulmonary disease, unspecified (7) GERD (gastroesophageal reflux disease) Current Visit: No Status: Chronic Assessment and plan: Continue home dose of PPI Qualifiers: Esophagitis presence: esophagitis presence not specified Qualified Code(s) : K21.9 - Gastro-esophageal reflux disease without esophagitis (8) HLD (hyperlipidemia) Current Visit: No Status: Chronic Assessment and plan: Continue statin Qualifiers: Hyperlipidemia type: pure hypercholesterolemia Qualified Code(s): E78.00 - Pure hypercholesterolemia, unspecified; E78.0 - Pure hypercholesterolemia (9) DVT prophylaxis Current Visit: Yes Status: Acute Assessment and plan: Subcutaneous heparin - Time Spent With Patient Total time spent is greater than 50% in coordination of care (as documented) at patient's floor/unit and/or counseling patient:
[2018-08-09] MEDS ORDERED: Naloxone 0.4 MG/ML INJ IVP PRN (17:40)
[2018-08-09] MEDS ORDERED: Acetaminophen 325 MG TABLET PO PRN (17:42)
[2018-08-09] MEDS ORDERED: ALPRAZolam 0.25 MG TABLET PO PRN (17:42)
[2018-08-09] MEDS ORDERED: *HR* HYDROcodone/Acet 7.5/325 mg TABLET PO PRN (17:42)
[2018-08-09] MEDS ORDERED: NON-FORMULARY MEDICATION 1 EACH EACH (Oxygen [Oxygen] 2 L) NS SCH (17:45)
[2018-08-09] MEDS ORDERED: Levofloxacin 750 MG/150 ML 750 MG/150 ML BAG IVPB SCH (18:00)
[2018-08-09] MEDS ORDERED: Vancomycin 1 EACH in 0.9 % Sodium Chloride 250 ML IVPB SCH (18:00)
[2018-08-09] MEDS ORDERED: Vancomycin 500 MG in 0.9 % Sodium Chloride Mini Bag 100 ML IVPB ONE (22:18)
[2018-08-09] MEDS: Artificial Tears SOLN 15 ML BOTTLE BOTH EYES SCH (22:34)
[2018-08-09] MEDS: Trolamine Salicylate/Aloe Vera 35.4 GM TUBE TP SCH (22:35)
[2018-08-09] MEDS: Piperacillin/Tazobactam 3.375 GM in 0.9 % Sodium Chloride Mini Bag 100 ML IVPB SCH (23:33)
[2018-08-10] MEDS ORDERED: Ipratropium/Albuterol Neb 3 ML IH PRN (04:00)
[2018-08-10 06:48] LABS: Basophils % 0.2 %; Eosinophils % 0.5 %; Hematocrit 20.4 % (35.3-44.9); Immature Granulocytes % 0.3 % (0-4); Lymphocytes # 0.9 K/mcL (0.6-4.6); Lymphocytes % 14.4 %; Mean Corpuscular HGB Conc 31.9 g/dL (31.6-35.5); Mean Corpuscular Volume 103.6 fL (83.0-100.0); Mean Platelet Volume 11.3 fL (9.4-12.4); Monocytes # 0.2 K/mcL (0.0-1.3); Monocytes % 3.2 %; Platelet Count 113 K/mcL (140-400); Red Blood Count 1.97 M/mcL (3.82-4.97); Segmented Neutrophils % 81.4 %
[2018-08-10 06:51] LABS: Hemoglobin 6.5 g/dL (11.5-15.4)
[2018-08-10 07:10] LABS: BUN/Creatinine Ratio 46 (6-26); Blood Urea Nitrogen 39 mg/dL (8-23); Calcium 7.6 mg/dL (8.6-10.3); Carbon Dioxide 30 mEq/L (23-29); Chloride 108 mEq/L (98-107); Glucose 58 mg/dL (70-105); Osmolality,Calculated 303 (280-300); Potassium 3.6 mEq/L (3.5-5.1); Sodium 143 mEq/L (136-145); eGFR For Non-African Americans > 60 (> 60)
[2018-08-10 08:54] LABS: Hemoglobin 7.8 g/dL (11.5-15.4)
[2018-08-10] MEDS ORDERED: (Tiotropium Br/Olodaterol Hcl [Stiolto Respimat Inhal IH SCH (09:00)
[2018-08-10] MEDS ORDERED: Furosemide 40 MG TABLET PO SCH (09:00)
[2018-08-10] MEDS ORDERED: amLODIPine 5 MG TABLET PO SCH (09:00)
[2018-08-10] MEDS: Multivit/Ca/Min/Fe/FA 1 TAB TABLET PO SCH (09:23)
[2018-08-10] MEDS: Cyanocobalamin (B-12) 1,000 MCG TABLET PO SCH (09:23)
[2018-08-10] MEDS: Piperacillin/Tazobactam 3.375 GM in 0.9 % Sodium Chloride Mini Bag 100 ML IVPB SCH ×3 (09:24→23:32)
[2018-08-10] MEDS: Aspirin 81 MG TAB.CHEW PO SCH (09:24)
[2018-08-10] MEDS: Trolamine Salicylate/Aloe Vera 35.4 GM TUBE TP SCH ×2 (09:26→20:52)
[2018-08-10] MEDS: Artificial Tears SOLN 15 ML BOTTLE BOTH EYES SCH ×2 (09:27→20:52)
[2018-08-10] MEDS: Fluticasone Propionate Nasal 50 MCG/SPRAY BOTTLE NS SCH (09:31)
--- NOTE | 2018-08-10 12:55 | Electrocardiograph Report ---
[facility] [employer] Test Date: 2018-08-09 Pat Name: Isaura Hu Department: EXAM8 Room: [facility] Gender: F [employer]: : [id number] Requested By: Ana See Order Number: [id number] Reading MD: Fuentes Bradshaw Measurements Intervals [place] Rate: 92 P: 47 ID: [id number] QRS: 74 QRSD: 64 T: -58 QT: 446 QTc: 552 Interpretive Statements Sinus rhythm Low voltage, extremity and precordial leads Nonspecific T abnrm, anterolateral leads Prolonged QT interval Electronically Signed On 08-10-2018 12:52:58 EDT by Fuentes Bradshaw
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
[2018-08-10] MEDS ORDERED: Vancomycin 500 MG in 0.9 % Sodium Chloride Mini Bag 100 ML IVPB SCH (21:44)
[2018-08-10] MEDS: Ipratropium/Albuterol Neb 3 ML IH SCH (22:20)
[2018-08-11] MEDS: Ipratropium/Albuterol Neb 3 ML IH SCH ×3 (04:23→15:54)
[2018-08-11 05:05] LABS: Eosinophils % 0.1 %; Hemoglobin 7.4 g/dL (11.5-15.4); Immature Granulocytes % 0.5 % (0-4); Lymphocytes % 12.5 %; Mean Corpuscular HGB Conc 32.2 g/dL (31.6-35.5); Mean Corpuscular Hemoglobin 33.6 pg (28.0-33.3); Mean Corpuscular Volume 104.5 fL (83.0-100.0); Mean Platelet Volume 11.7 fL (9.4-12.4); Monocytes # 0.2 K/mcL (0.0-1.3); Monocytes % 2.6 %; Neutrophils # 6.5 K/mcL (1.6-8.9); Nucleated Red Blood Cells 0.3 /100 WBC (0); Platelet Count 134 K/mcL (140-400); Red Cell Distribution Width 17.9 % (11.5-14.5); Segmented Neutrophils % 84.3 %
[2018-08-11] MEDS: Albumin 25% 25gram/100mL 25 GM/100 ML IV.SOLN IVC SCH ×2 (05:07→07:34)
[2018-08-11 06:17] LABS: BUN/Creatinine Ratio 43 (6-26); Blood Urea Nitrogen 42 mg/dL (8-23); Calcium 7.7 mg/dL (8.6-10.3); Carbon Dioxide 24 mEq/L (23-29); Chloride 109 mEq/L (98-107); Glucose 21 mg/dL (70-105); Magnesium 2.1 mg/dL (1.6-2.6); Osmolality,Calculated 304 (280-300); Potassium 3.8 mEq/L (3.5-5.1); Sodium 144 mEq/L (136-145); eGFR For Non-African Americans 54 (> 60)
[2018-08-11] MEDS ORDERED: *HR* Dextrose 50 % in Water (Syg) 50 ML SYRINGE IVP ONE (06:19)
[2018-08-11] MEDS ORDERED: D5% in Water 1,000 ML IVC PRN (06:19)
[2018-08-11] MEDS ORDERED: *HR* Dextrose 50 % in Water (Syg) 50 ML SYRINGE IVP PRN (06:19)
[2018-08-11] MEDS ORDERED: Dextrose Gel 15 GM/37.5 ML TUBE PO PRN ×2 (06:19)
[2018-08-11] MEDS: Fluticasone Propionate Nasal 50 MCG/SPRAY BOTTLE NS SCH (07:28)
[2018-08-11] MEDS: Multivit/Ca/Min/Fe/FA 1 TAB TABLET PO SCH (07:29)
[2018-08-11] MEDS: Cyanocobalamin (B-12) 1,000 MCG TABLET PO SCH (07:29)
[2018-08-11] MEDS: Aspirin 81 MG TAB.CHEW PO SCH (07:29)
[2018-08-11] MEDS: Artificial Tears SOLN 15 ML BOTTLE BOTH EYES SCH (07:29)
[2018-08-11] MEDS: Trolamine Salicylate/Aloe Vera 35.4 GM TUBE TP SCH (07:30)
[2018-08-11] MEDS: Piperacillin/Tazobactam 3.375 GM in 0.9 % Sodium Chloride Mini Bag 100 ML IVPB SCH ×2 (09:14→15:44)
[2018-08-11] MEDS ORDERED: 0.9 % Sodium Chloride 500 ML IVC ONE (10:02)
[2018-08-11] MEDS ORDERED: D5% in 0.45% NACL 1,000 ML IVC SCH (10:45)
[2018-08-11] MEDS ORDERED: Levofloxacin 750 MG/150 ML 750 MG/150 ML BAG IVPB SCH (12:00)
--- NOTE | 2018-08-11 14:15 | Internal Med Progress Note ---
Hospitalist Progress Note - Encounter Date of Encounter: 08/11/18 Time of Encounter: 10:30 - Subjective Interval History: ptawake but lethargic. she follows commands but turns head away when asking her questions. Her son was later to bedside and lenghty conversation with him, as he is her POA. Discussed work up and treatment for sepsis currently given changes in temperature and bp overnight. Only identifiable source at this time pulmonary. She required IVFs for hypoglycemia as well, albumin for bp support, and broadenig of abx this morning. He notes her to be frail, with poor oral intake and confusion over the last week. She has chronic pain at baseline and has been crying out this morning in pain. He would like to change code status to DNR CC in effort to treat her current illness but to change focus to her comfort. He is agreeable to speaking with palliative care team as well. - Exam Vitals: Temp Pulse Resp BP Pulse Ox 94.6 F L 67 18 85/51 95 08/11/18 11:43 08/11/18 11:43 08/11/18 11:43 08/11/18 11:43 08/11/18 11:43 Exam: General: lethargic, awakes to name, frail HEENT:EOM appear intact, pupils equal, round, dry mucus membranes, clear oropharynx , + dentures Neck: supple, trachea midline Cardiovascular:regular rate and rhythm, normal S1 & S2, no rubs, murmurs or gallops. radial pulses 2+, no pitting lower extremity edema Lungs:Normal breath sounds, no wheezes, or crackles. diminsihed bl bases, Normal respiratory effort on o2 nc Abdomen:Soft, no apparent-tenderness, no guard or grimace to palpation, non- distended, + bowel sounds Extremities:No deformity, no edema or tenderness, no joint swelling or clubbing. Neurological: Awakes to name, follows command to squeeze fingers and open eyes, generally weak but no focal deficit noted Skin:Normal color, no rash, no pallor, no jaundice - Assessment and Plan (1) Altered mental status Current Visit: Yes Status: Acute Assessment and Plan: Suspect 2/2 infectious process at this time given now spesis picture -treatment as below, no leukocytosis -Head CT neg for acute changes -no focal neuro deficits -no acute ischemic changes noted in ED EKG -remains on home xanax , UDS + opiates she takes for chronic pain, currently holding due to bp Continue to monitor, neuro checks (2) HCAP (healthcare-associated pneumonia) Current Visit: Yes Status: Acute Assessment and Plan: Patient is a poor historian therefore history difficult but chest x-ray showed patchy/hazy airspace opacities in the right lower lobe suspicious for infiltrate. Respiratory panel pending treptococcal/Legionella antigen neg speech evaluated - rec for mechanically altered textures due to dentition and thin liquids -cont supp o2 nc -prn nebs, incentive spirometry -cont vanc + zosyn -broaden to include levaquin 08/11 (3) HTN (hypertension) Current Visit: No Status: Chronic Assessment and Plan: Now hypotensive -cont to hold amlodipine and lasix -s/p IV albumin -IVFs -cont to monitor -dnr cc and would not be pressor candidate (4) HLD (hyperlipidemia) Current Visit: No Status: Chronic Assessment and Plan: Continue statin (5) GERD (gastroesophageal reflux disease) Current Visit: No Status: Chronic Assessment and Plan: Continue home dose of PPI (6) Anemia Current Visit: Yes Status: Chronic Assessment and Plan: Stable; 7.8 with admit 8.5 and s/p IVF bolus with drop in all 3 cell lines -am lab showed drop to 6.5, but on repeat 7.8, stable 7.4 -hgb 8.4 in june -will continue to monitor, hold pharm vte ppx and use scds at this time -repeat hgb in am -no active bleeding, check ua- neg for blood and fobt-pending (7) COPD (chronic obstructive pulmonary disease) Current Visit: No Status: Chronic Assessment and Plan: treatment of pna as above; continue home meds, cont home oxygen (8) Severe protein-calorie malnutrition Current Visit: No Status: Acute Assessment and Plan: Consult Nutrition (9) DVT prophylaxis Current Visit: Yes Status: Acute Assessment and Plan: scds due to anemia as above (10) Sepsis Current Visit: Yes Status: Acute Assessment and Plan: with hypotension, hypothermia and hypoglycemia -broaden abx as above -ua neg, treating pna, check bl cxs 08/11, check lactate -given hypothermia- checked tsh and wnl -with hypoglycemia accu checks scheduled and prn hypoglycemics, start D51/2 NS IVFs -d/w pt poa her son michael brito and pt code status changed to dnr cc with palliative care consulted -cont with treatment of suspected sepsis - Time Spent with Patient Total time spent is greater than 50% in coordination of care (as documented) at patient's floor/unit and/or counseling patient: Greater than 35 minutes Plan of Care Discussed with: family Internal Medicine: Result - Labs CBC & Chem 7: 08/11/18 04:20 08/11/18 04:20 Labs: Short CBC 08/11/18 Range/Units 04:20 WBC 7.7 (4.3-11.1) K/mcL Hgb 7.4 L (11.5-15.4) g/dL Hct 23.0 L (35.3-44.9) % Plt Count 134 L (140-400) K/mcL Neutrophils # 6.5 (1.6-8.9) K/mcL BMP 08/11/18 04:20 Sodium 144 Potassium 3.8 Chloride 109 H Carbon Dioxide 24 BUN 42 H Creatinine 0.97 Glucose 21 L* Calcium 7.7 L - ABG Interpretation ABG results: PT/INR, D-dimer PT 11.3 Seconds (9.4-12.1) 08/09/18 11:42 Consult Discharge Plan - Plan Referrals: Ian Muse Jr, MD [Primary Care Provider] - (1) Altered mental status Qualifiers: Altered mental status type: unspecified Qualified Code(s): R41.82 - Altered mental status, unspecified (3) HTN (hypertension) Qualifiers: Hypertension type: essential hypertension Qualified Code(s): I10 - Essential (primary) hypertension (4) HLD (hyperlipidemia) Qualifiers: Hyperlipidemia type: pure hypercholesterolemia Qualified Code(s): E78.00 - Pure hypercholesterolemia, unspecified; E78.0 - Pure hypercholesterolemia (5) GERD (gastroesophageal reflux disease) Qualifiers: Esophagitis presence: esophagitis presence not specified Qualified Code(s): K21.9 - Gastro-esophageal reflux disease without esophagitis (6) Anemia Qualifiers: Anemia type: unspecified type Qualified Code(s): D64.9 - Anemia, unspecified (7) COPD (chronic obstructive pulmonary disease) Qualifiers: COPD type: unspecified COPD Qualified Code(s): J44.9 - Chronic obstructive pulmonary disease, unspecified (10) Sepsis Qualifiers: Sepsis type: sepsis due to unspecified organism Qualified Code(s): A41.9 - Sepsis, unspecified organism
--- NOTE | 2018-08-11 15:16 | Palliative - Consult Note ---
Date of Encounter: 08/11/18 Time of Encounter: 13:00 - Assessment and Plan (1) Generalized pain Current Visit: Yes Status: Acute Assessment and plan: Patient yelling out in pain with mild touch. Add Oxycodone SL PRN. (2) Anxiety Current Visit: Yes Status: Acute Assessment and plan: Patient having increased anxiety. Unable to swallow oral medications. Discontinue Xanax add Ativan SL PRN. (3) Altered mental status Current Visit: Yes Status: Acute Qualifiers: Altered mental status type: unspecified Qualified Code(s): R41.82 - Altered mental status, unspecified (4) Sepsis Current Visit: Yes Status: Acute Assessment and plan: Patient Temperature low. Family desires to keep patient comfortable. Qualifiers: Sepsis type: sepsis due to unspecified organism Qualified Code(s): A41.9 - Sepsis, unspecified organism (5) COPD (chronic obstructive pulmonary disease) Current Visit: No Status: Chronic Assessment and plan: Continue oxygen for comfort. Qualifiers: COPD type: unspecified COPD Qualified Code(s): J44.9 - Chronic obstructive pulmonary disease, unspecified (6) Goals of care, counseling/discussion Current Visit: Yes Status: Acute Assessment and plan: No family present at bedside. Called and spoke with ELISA Rankin regarding current clinical status. Desires to keep patient comfortable. Received word from [facility] that patient's other son Roosevelt calling to get patient admitted. Spoke with Chucho regarding goals of care; patient may be clinically unstable to move due to pain and anxiety. Patient's plan to go to [facility] with [facility] once medically stable. Called and spoke with [facility]. Desire to admit patient [facility] to get pain and anxiety under control. Notified Keila and Jennifer; agreeable. Gave phone number to Chucho. Frequent conversations with both Chucho and Katie SW to confirm patient already inpatient status then transferred to [facility]. All parties agreeable. Notified [facility] of need for bed 2A44. Notified Poonam in bed board of plan to transfer patient. Notified 3A nurse of plan to transfer patient to 2A. Notified Katie of current plan for GIP. Notified Dr. Elizabeth of need for discharge order. Notified Dr. Ronquillo of need for GIP; agreeable. Palliative-CN HPI - Data of Consult Patient: new to practice Consult date: 08/11/18 Requesting Physician: Yanira Mccall Primary Care Provider: Ian Muse Jr, MD - Consult Narrative Palliative Care/Comfort Measures: Palliative care Reason for consult: Declining condition with suspected sepsis History of present illness: Ms. Hu is a 88 year old female Arrived to [facility] on 08/09/18 for AMS, as a transfer from [facility]. Patient found to have hemoglobin morning of admission of 7.5 and increased confusion. Patient able to converse regarding complaints. Chest x-ray performed showing: [id number] bilateral pleural effusions, right larger than left, with associated patchy/hazy airspace opacities to the right lower lung zone which may relate to atelectasis or infiltrate. CT of the head showing: No evidence of acute intracranial abnormality and Left sphenoid and bilateral mastoid sinus disease as described above. PMH: COPD, fibromyalgia, GERD, hyperlipidemia, hypertension, and osteoporosis. Palliative care consult for Declining condition with suspected sepsis; goals of care discussion. Patient lying in bed on right side crying, eyes open. Unable to give answers. No family present at bedside. CC: Yanira Mccall - Time Spent with Patient Time: Total time spent is greater than 50% in coordination of care (as documented) at patient's floor/unit and/or counseling patient: Greater than 35 minutes Past Med Surg Social Fam HX - Past Medical History Medical history: COPD, fibromyalgia, GERD, hyperlipidemia, hypertension, osteoporosis Additional medical history: MULTIPLE FRACTURES- RIBS, SPINE Psychiatric history: no psych history - Past Surgical History Surgical History: cataract Additional surgical history: Cyst removal with carpal tunnel surgery, - Social History Smoking Status: Former smoker Smokeless Tobacco Status: No Alcohol use: none Drug use: none - Family History Father Family Member Ethnicity: Non- Living Status: Hx Family Cardiac Disorders: No Hx Family Respiratory Disorders: No Hx Family Cancer: Yes (Unknown type) Hx Family GI Disorders: No Hx Family Endocrine Disorder: No Hx Family Neuromuscular Disorders: No Hx Family Neurologic Disorders: No Hx Family HEENT Disorders: No Hx Family Autoimmune Disorders: No Medications and Allergies Albuterol Sulfate [Proair Hfa] 2 puff IH Q4H PRN 05/15/17 [History] Aspirin 81 mg PO DAILY 05/15/17 [History] Calcium Carbonate [Calcium] 500 mg PO BID 05/15/17 [History] Fluticasone Propionate Nasal [Flonase] 1 spray NS DAILY 05/15/17 [History] Naproxen Sodium [Aleve] 220 - 440 mg PO BID PRN 05/15/17 [History] Omeprazole [PriLOSEC] 20 mg PO DAILY 05/15/17 [History] Simvastatin [Zocor] 10 mg PO HS 05/15/17 [History] Docusate [Colace] 100 mg PO BID PRN 01/20/18 [History] Furosemide [Lasix] 40 mg PO DAILY 01/20/18 [History] Oxygen 2 l NS AD 01/20/18 [History] HYDROcodone/Acet 7.5/325 mg [[place] 7.5-325 mg] 1 tab PO Q4H PRN 2 Days #8 tablet 03/25/18 [Rx] amLODIPine [Norvasc] 10 mg PO DAILY #30 tablet 03/25/18 [Rx] ALPRAZolam [Xanax 0.25 MG Tablet] 0.25 mg PO BID PRN 08/09/18 [History] Acetaminophen [Tylenol] 650 mg PO Q6HR PRN 08/09/18 [History] Cyanocobalamin (B-12) [Vitamin B12] 1,000 mcg PO DAILY 08/09/18 [History] Ipratropium/Albuterol Neb [Duoneb] 3 ml IH Q6HR PRN 08/09/18 [History] Multivitamin [One Daily Multivitamin] 1 tab PO DAILY 08/09/18 [History] Propylene Glycol/Peg 400 [Systane 0.3-0.4% Eye Drops] 1 drop BOTH EYES BID 08/09 [History] Tiotropium Br/Olodaterol HCl [Stiolto Respimat Inhal [place]] 2 puff IH DAILY [History] Trolamine Salicylate/Aloe Vera [Aspercreme 10%] 1 appl TP BID 08/09/18 [History] 3 Allergy/AdvReac Type Severity Reaction Status Date / Time No Known Allergies Allergy Verified 08/09/18 12:25 ROS unobtainable: due to mental status Palliative Care-Exam - Constitutional Vitals: Temp Pulse Resp BP Pulse Ox 94.6 F L 67 18 85/51 95 08/11/18 11:43 08/11/18 11:43 08/11/18 11:43 08/11/18 11:43 08/11/18 11:43 General appearance: Present: disheveled, no acute distress - Head Head Exam: Present: atraumatic, normal inspection - Eye Eye exam: Present: normal appearance - ENT ENT exam: Present: mucous membranes dry - Neck Neck exam: Present: normal inspection. Absent: full ROM - Respiratory Respiratory exam: Present: accessory muscle use, rhonchi - Cardiovascular Cardiovascular exam: Present: +S1, +S2 - Expanded Cardiovascular Exam Peripheral pulses: 0: Posterior Tibialis (L), Posterior Tibialis (R), Dorsalis Pedis (L) PM, Dorsalis Pedis (R) PM, 2+: Radial (L), Radial (R) - GI/Abdominal Exam GI/Abdominal exam: Present: diminished bowel sounds. Absent: tenderness - Rectal Rectal exam: Present: deferred - Extremities Exam Extremities exam: Present: calf tenderness, pedal edema, tenderness - Neurological Exam Neurological exam: Present: altered - Expanded Neurological Exam Coma Scale Eye Opening: To Voice Coma Scale Motor Response: Withdraws to Pain Coma Scale Verbal Response: Inappropriate Coma Scale Total: 10 - Psychiatric Psychiatric exam: Present: depressed Internal Medicine - CN: Reslt - Labs CBC & Chem 7: 08/11/18 04:20 08/11/18 04:20 Labs: Short CBC 08/11/18 Range/Units 04:20 WBC 7.7 (4.3-11.1) K/mcL Hgb 7.4 L (11.5-15.4) g/dL Hct 23.0 L (35.3-44.9) % Plt Count 134 L (140-400) K/mcL Neutrophils # 6.5 (1.6-8.9) K/mcL BMP 08/11/18 04:20 Sodium 144 Potassium 3.8 Chloride 109 H Carbon Dioxide 24 BUN 42 H Creatinine 0.97 Glucose 21 L* Calcium 7.7 L - ABG Interpretation ABG results: PT/INR, D-dimer PT 11.3 Seconds (9.4-12.1) 08/09/18 11:42 - Impressions Impressions KUB X-Ray 08/11/18 14:23 IMPRESSION: 1. Nonobstructive bowel gas pattern with a mild stool volume. 2. Persistent moderate to large bilateral effusions and underlying bibasilar atelectasis and/or pneumonia. 3. Pulmonary vascular congestion. D/ / Dallin Alvarado MD / Dallin Alvarado MD Interpreting Provider: Dallin Alvarado MD Consult Discharge Plan - Plan Referrals: Ian Muse Jr, MD [Primary Care Provider] - Palliative Quality Palliative Quality: Screen for Code Status: Yes, Screen for Goals of Care: Yes, Screen for Pain: Yes, If Pain Regimen Started, Initiate Bowel Regimen: NA, Screen for Nausea/Vomitting: Yes Code Status: 08/09/18 17:40 Resuscitation Status: Active [RES] Routine Comment: Resuscitation Status: Full Code 08/11/18 11:46 Resuscitation Status: Active [RES] Routine Comment: Resuscitation Status: DNR-Comfort Care
[2018-08-11] MEDS ORDERED: Furosemide 40 MG/4 ML VIAL IVP SCH (15:21)
--- NOTE | 2018-08-11 15:34 | Discharge Summary ---
- NOTES TO OUTPATIENT PROVIDER Notes to Outpatient Provider: to inpt hospice Orders not resulted at time of discharge: Pending orders 08/11/18 15:15 Lactic Acid Stat 08/12/18 20:00 Vancomycin,Trough Timed Date of Encounter: 08/11/18 Time of Encounter: 10:30 - Discharge Diagnosis (1) Altered mental status Priority: Primary Status: Acute Assessment and Plan: Suspect 2/2 infectious process at this time given now spesis picture -treatment as below, no leukocytosis -Head CT neg for acute changes -no focal neuro deficits -no acute ischemic changes noted in ED EKG -remains on home xanax , UDS + opiates she takes for chronic pain she will now dc to inpt hospice Qualifiers: Qualified Code(s): R41.82 - Altered mental status, unspecified (2) HCAP (healthcare-associated pneumonia) Priority: Primary Status: Acute Assessment and Plan: Patient is a poor historian therefore history difficult but chest x-ray showed patchy/hazy airspace opacities in the right lower lobe suspicious for infiltrate. Respiratory panel pending streptococcal/Legionella antigen neg speech evaluated - rec for mechanically altered textures due to dentition and thin liquids -cont supp o2 nc -prn nebs, incentive spirometry -cont vanc + zosyn -broaden to include levaquin 08/11 -defer further managment to inpt hospice (3) HTN (hypertension) Priority: Secondary Status: Chronic Assessment and Plan: Now hypotensive - hold amlodipine and lasix -s/p IV albumin -IVFs -cont to monitor -dnr cc and would not be pressor candidate -transfer to inpt hospice Qualifiers: Qualified Code(s): I10 - Essential (primary) hypertension (4) HLD (hyperlipidemia) Priority: Secondary Status: Chronic Assessment and Plan: statin Qualifiers: Qualified Code(s): E78.00 - Pure hypercholesterolemia, unspecified; E78.0 - Pure hypercholesterolemia (5) GERD (gastroesophageal reflux disease) Priority: Secondary Status: Chronic Assessment and Plan: Continue home dose of PPI Qualifiers: Qualified Code(s): K21.9 - Gastro-esophageal reflux disease without esophagitis (6) Anemia Priority: Secondary Status: Chronic Assessment and Plan: Stable; 7.8 with admit 8.5 and s/p IVF bolus with drop in all 3 cell lines -am lab showed drop to 6.5, but on repeat 7.8, stable 7.4 -hgb 8.4 in june -held pharm vte ppx and used scds -no active bleeding, check ua- neg for blood and fobt-pending Qualifiers: Qualified Code(s): D64.9 - Anemia, unspecified (7) COPD (chronic obstructive pulmonary disease) Priority: Secondary Status: Chronic Assessment and Plan: treatment of pna as above; continue home meds, cont home oxygen Qualifiers: Qualified Code(s): J44.9 - Chronic obstructive pulmonary disease, unspecified (8) Severe protein-calorie malnutrition Priority: Secondary Status: Acute Assessment and Plan: Consulted Nutrition (9) DVT prophylaxis Priority: Secondary Status: Acute Assessment and Plan: scds due to anemia as above (10) Sepsis Priority: Secondary Status: Acute Assessment and Plan: with hypotension, hypothermia and hypoglycemia -broaden abx as above -ua neg, treating pna, check bl cxs 08/11, check lactate -given hypothermia- checked tsh and wnl -with hypoglycemia accu checks scheduled and prn hypoglycemics, start D51/2 NS IVFs -d/w pt poa her son thang hu and pt code status changed to dnr cc with palliative care consulted -later in day 08/11 family decided to transition pt to inpt hospice and she was dc to inpt hospice bed Qualifiers: Qualified Code(s): A41.9 - Sepsis, unspecified organism Hospital course: Ms. Hu is a 88 year old female who wasadmitted with one week worsening confusion and poor oral intake. Suspicion for RLL pna on admission and infectious and metabolic work up otherwise not significant. Imaging of head and cardiac work up unremarkable. Treated for pna and overnight 08/10 into am 08/11 she showed signs of sepsis with hypothermia, hypotension, hypoglycemia and became lethargic. Treatment for sepsis initiated. Lengthy discussion with her son whom is her POA Thang Hu 08/11 and he requested dnr cc code staus and agreeable to palliative care consult. He met with them and was agreeable to transition to inpt hospice and she was dc to palliative service 08/11. Full details of admission as noted above. Discharge discussed with: family - Time Spent with Patient Total time spent providing and/or coordinating discharge services: Greater than 30 minutes - Discharge Medications Home Medications: Albuterol Sulfate [Proair Hfa] 2 puff IH Q4H PRN 05/15/17 [History] Aspirin 81 mg PO DAILY 05/15/17 [History] Calcium Carbonate [Calcium] 500 mg PO BID 05/15/17 [History] Fluticasone Propionate Nasal [Flonase] 1 spray NS DAILY 05/15/17 [History] Omeprazole [PriLOSEC] 20 mg PO DAILY 05/15/17 [History] Simvastatin [Zocor] 10 mg PO HS 05/15/17 [History] Docusate [Colace] 100 mg PO BID PRN 01/20/18 [History] Oxygen 2 l NS AD 01/20/18 [History] HYDROcodone/Acet 7.5/325 mg [[place] 7.5-325 mg] 1 tab PO Q4H PRN 2 Days #8 tablet 03/25/18 [Rx] ALPRAZolam [Xanax 0.25 MG Tablet] 0.25 mg PO BID PRN 08/09/18 [History] Acetaminophen [Tylenol] 650 mg PO Q6HR PRN 08/09/18 [History] Cyanocobalamin (B-12) [Vitamin B12] 1,000 mcg PO DAILY 08/09/18 [History] Ipratropium/Albuterol Neb [Duoneb] 3 ml IH Q6HR PRN 08/09/18 [History] Multivitamin [One Daily Multivitamin] 1 tab PO DAILY 08/09/18 [History] Propylene Glycol/Peg 400 [Systane 0.3-0.4% Eye Drops] 1 drop BOTH EYES BID 08/09 [History] Tiotropium Br/Olodaterol HCl [Stiolto Respimat Inhal [place]] 2 puff IH DAILY [History] Trolamine Salicylate/Aloe Vera [Aspercreme 10%] 1 appl TP BID 08/09/18 [History] Furosemide [Lasix] 40 mg IVP BID vial 08/11/18 [Rx] Allergies/Adverse Reactions: 3 Allergy/AdvReac Type Severity Reaction Status Date / Time No Known Allergies Allergy Verified 08/09/18 12:25 Date of admission: 08/11/18 11:49 Primary care physician: Ian Muse Jr, MD Discharging clinician: Yanira Mccall - Constitutional Vitals: Temp Pulse Resp BP Pulse Ox 94.6 F L 67 18 85/51 95 08/11/18 11:43 08/11/18 11:43 08/11/18 11:43 08/11/18 11:43 08/11/18 11:43 General appearance: Present: no acute distress, underweight Exam: General: lethargic, awakes to name, frail HEENT:EOM appear intact, pupils equal, round, dry mucus membranes, clear oropharynx , + dentures Neck: supple, trachea midline Cardiovascular:regular rate and rhythm, normal S1 & S2, no rubs, murmurs or gallops. radial pulses 2+, no pitting lower extremity edema Lungs:Normal breath sounds, no wheezes, or crackles. diminsihed bl bases, Normal respiratory effort on o2 nc Abdomen:Soft, no apparent-tenderness, no guard or grimace to palpation, non- distended, + bowel sounds Extremities:No deformity, no edema or tenderness, no joint swelling or clubbing. Neurological: Awakes to name, follows command to squeeze fingers and open eyes, generally weak but no focal deficit noted Skin:Normal color, no rash, no pallor, no jaundice - Patient Status Disposition: Hospice - Medical Facility Condition: Serious Overall status at discharge: patient is not back to baseline - Discharge Instructions Follow Up With: Ian Muse Jr, MD [Primary Care Provider] - Forms: ED Satisfaction Letter Additional Instructions: dc to inpt hospice
[2018-08-11] MEDS ORDERED: OXYCODONE Oral CONC 10 MG/0.5 ML ORAL.SYG SL PRN (15:42)
[2018-08-11] MEDS ORDERED: *HR* LORazepam Oral Conc 2 MG/ML SL PRN (15:43)
[2018-08-11 16:36] VITALS: BP 96/51
== END 2018-08-11 17:20 | disposition hospice, inpatient (51) | DRG 871 ==
LOC: 3ANU 11:35 → EMEROOARM 11:35 → SUATTDRO 15:00 → 3ANU 15:27
PROVIDERS: ADMIT Student in an Organized Health Care Education/Training Program; ATTEND Internal Medicine

== ENCOUNTER 2018-08-11 15:29 | Inpatient (IN) ==
[2018-08-11] MEDS ORDERED: Ondansetron ODT 4 MG TAB.RAPDIS SL PRN (15:46)
[2018-08-11] MEDS ORDERED: Acetaminophen 650 MG RECTAL SUPP RC PRN (15:46)
[2018-08-11] MEDS ORDERED: Atropine Sulfate 1% 40 DROP/2 ML BOTTLE SL PRN (15:46)
[2018-08-11] MEDS ORDERED: Bisacodyl 10 MG RECTAL SUPPOSITORY RC PRN (15:46)
[2018-08-11] MEDS ORDERED: Ipratropium/Albuterol Neb 3 ML IH PRN (15:46)
[2018-08-11] MEDS ORDERED: Scopolamine Patch 1.5 MG PATCH.TD72 TD SCH (16:00)
[2018-08-11] MEDS: Furosemide 40 MG TABLET PO SCH (19:22)
[2018-08-11] MEDS: Artificial Tears SOLN 15 ML BOTTLE BOTH EYES SCH ×2 (19:22→23:04)
[2018-08-11] MEDS: OXYCODONE Oral CONC 10 MG/0.5 ML ORAL.SYG SL PRN ×2 (19:28→23:01)
[2018-08-11] MEDS: *HR* LORazepam Oral Conc 2 MG/ML PO PRN ×2 (19:30→23:01)
[2018-08-11] MEDS ORDERED: Vancomycin 500 MG in 0.9 % Sodium Chloride Mini Bag 100 ML IVPB SCH (22:00)
[2018-08-11] MEDS: Piperacillin/Tazobactam 3.375 GM in 0.9 % Sodium Chloride Mini Bag 100 ML IVPB SCH (23:55)
[2018-08-12] MEDS: OXYCODONE Oral CONC 10 MG/0.5 ML ORAL.SYG SL PRN ×7 (02:05→21:28)
[2018-08-12] MEDS: *HR* LORazepam Oral Conc 2 MG/ML PO PRN ×3 (04:44→11:50)
[2018-08-12] MEDS: Piperacillin/Tazobactam 3.375 GM in 0.9 % Sodium Chloride Mini Bag 100 ML IVPB SCH (07:56)
[2018-08-12] MEDS: Furosemide 40 MG TABLET PO SCH ×2 (07:56→16:21)
[2018-08-12] MEDS: Artificial Tears SOLN 15 ML BOTTLE BOTH EYES SCH ×4 (08:19→21:51)
--- NOTE | 2018-08-12 10:42 | Palliative - Consult Note ---
Date of Encounter: 08/12/18 Time of Encounter: 09:30 - Assessment and Plan (1) Altered mental status Current Visit: Yes Status: Acute Assessment and plan: Patient only responsive to pain. Moans and slowly opens eyes to pain. Generalized pain and tenderness to joints. Moans with movement. Position for comfort. Granddaughter at bedside. Called Chaplain Lizbeth. Provided bedside prayer with granddaughter. Patient is frail, poor BMI, poor output, and not eating. Likely to pass away in next 24 - 48 hrs. Family support and education provided. Qualifiers: Altered mental status type: unspecified Qualified Code(s): R41.82 - Altered mental status, unspecified (2) Anxiety Current Visit: No Status: Acute Assessment and plan: Resting comfortable. Plan: Ativan - had 4 doses total 24 hr dose 2mg. (3) Generalized pain Current Visit: No Status: Acute Assessment and plan: Patient only responsive to pain. Moans and slowly opens eyes to pain. Generalized pain and tenderness to joints. Moans with movement. Plan: - Oxycodone SL - Had 5 doses in past 24 hrs Effective, patient comfortable Palliative-CN HPI - Data of Consult Patient: known to practice within the last 3 years Consult date: 08/12/18 Requesting Physician: Que Salas MD Primary Care Provider: Ian Muse Jr, MD - Consult Narrative Palliative Care/Comfort Measures: Hospice care Reason for consult: Symptom management History of present illness: Ms. Hu is a 88 year old female. Patient transitioned to hospice care for declining condition and sepsis. PMH: COPD, fibromyalgia, GERD, hyperlipidemia, HTN, osteoporosis. Patient and family desire comfort care. Antibiotics stopped and Code Status changed to comfort care. Patient having generalized pain and anxiety and admitted to inpatient GIP for symptom management. Plan in place for patient to transition to [facility] with [facility]. Upon this consult, the patient is sleeping with mouth open and resting well at present. Palliative care consult is for symptom management. Granddaughter Daisy at bedside. CC: Que Salas MD - Time Spent with Patient Time: Total time spent is greater than 50% in coordination of care (as documented) at patient's floor/unit and/or counseling patient: 25 - 35 minutes Past Med Surg Social Fam HX - Past Medical History Attestation: Yes The following information was validated with the patient. Source: patient, old records reviewed, obtained from family, nursing notes reviewed Medical history: COPD, fibromyalgia, GERD, hyperlipidemia, hypertension, osteoporosis Additional medical history: MULTIPLE FRACTURES- RIBS, SPINE Psychiatric history: no psych history - Past Surgical History Surgical History: cataract Additional surgical history: Cyst removal with carpal tunnel surgery, - Social History Smoking Status: Former smoker Smokeless Tobacco Status: No Alcohol use: none Drug use: none Occupational status: retired Current living situation: [facility] Activity Level: Bed bound Recent Out of Country Travel Within the Last 8 Weeks: No Exposure or Possible Exposure to Illness During Travel: No - Family History Father Family Member Ethnicity: Non- Living Status: Hx Family Cardiac Disorders: No Hx Family Respiratory Disorders: No Hx Family Cancer: Yes (Unknown type) Hx Family GI Disorders: No Hx Family Endocrine Disorder: No Hx Family Neuromuscular Disorders: No Hx Family Neurologic Disorders: No Hx Family HEENT Disorders: No Hx Family Autoimmune Disorders: No Medications and Allergies Albuterol Sulfate [Proair Hfa] 2 puff IH Q4H PRN 05/15/17 [History] Aspirin 81 mg PO DAILY 05/15/17 [History] Calcium Carbonate [Calcium] 500 mg PO BID 05/15/17 [History] Fluticasone Propionate Nasal [Flonase] 1 spray NS DAILY 05/15/17 [History] Omeprazole [PriLOSEC] 20 mg PO DAILY 05/15/17 [History] Simvastatin [Zocor] 10 mg PO HS 05/15/17 [History] Docusate [Colace] 100 mg PO BID PRN 01/20/18 [History] Oxygen 2 l NS AD 01/20/18 [History] HYDROcodone/Acet 7.5/325 mg [Jasper 7.5-325 mg] 1 tab PO Q4H PRN 2 Days #8 tablet 03/25/18 [Rx] ALPRAZolam [Xanax 0.25 MG Tablet] 0.25 mg PO BID PRN 08/09/18 [History] Acetaminophen [Tylenol] 650 mg PO Q6HR PRN 08/09/18 [History] Cyanocobalamin (B-12) [Vitamin B12] 1,000 mcg PO DAILY 08/09/18 [History] Ipratropium/Albuterol Neb [Duoneb] 3 ml IH Q6HR PRN 08/09/18 [History] Multivitamin [One Daily Multivitamin] 1 tab PO DAILY 08/09/18 [History] Propylene Glycol/Peg 400 [Systane 0.3-0.4% Eye Drops] 1 drop BOTH EYES BID 08/09 [History] Tiotropium Br/Olodaterol HCl [Stiolto Respimat Inhal Milmay] 2 puff IH DAILY [History] Trolamine Salicylate/Aloe Vera [Aspercreme 10%] 1 appl TP BID 08/09/18 [History] Furosemide [Lasix] 40 mg IVP BID vial 08/11/18 [Rx] 3 Allergy/AdvReac Type Severity Reaction Status Date / Time No Known Allergies Allergy Verified 08/09/18 12:25 Palliative Care-Exam - Constitutional Vitals: Temp Pulse Resp BP Pulse Ox 98.5 F 79 22 118/78 91 08/11/18 18:51 08/12/18 08:02 08/12/18 08:02 08/12/18 08:02 08/12/18 08:02 General appearance: Present: no acute distress - Head Head Exam: Present: atraumatic, normal inspection, normocephalic - Eye Eye exam: Present: normal appearance Pupils: Present: PERRL - ENT ENT exam: Present: mucous membranes moist - Expanded ENT Exam Mouth Exam: Present: normal external inspection - Respiratory Respiratory exam: Present: decreased breath sounds - Expanded Respiratory Exam Location: decreased breath sounds: Left, Right, Lower - Cardiovascular Cardiovascular exam: Present: RRR, +S1, +S2 - Expanded Cardiovascular Exam Peripheral pulses: 1+: Femoral (L) PM, Femoral (R) PM, Posterior Tibialis (L), Posterior Tibialis (R), Dorsalis Pedis (L) PM, Dorsalis Pedis (R) PM, 2+: Carotid (L) PM, Carotid (R) PM, Radial (L), Radial (R) - GI/Abdominal Exam GI/Abdominal exam: Present: soft - Catheter Type: Urethral (Sw[place]) Additional comments: clear scant urine - Extremities Exam Extremities exam: Present: tenderness - Expanded Upper Extremities Exam Shoulder exam: Present: tenderness Upper Arm exam: Present: tenderness Elbow exam: Present: tenderness Forearm wrist exam: Present: tenderness Hand wrist exam: Present: tenderness - Expanded Lower Extremities Exam Hip exam: Present: tenderness Upper Leg exam: Present: tenderness Lower Leg exam: Present: tenderness - Neurological Exam Neurological exam: Present: altered - Expanded Neurological Exam Coma Scale Eye Opening: To Pain Coma Scale Motor Response: Localizes to Pain Coma Scale Verbal Response: Inappropriate Coma Scale Total: 10 - Psychiatric Psychiatric exam: Present: flat affect - Skin Skin exam: Present: pallor Consult Discharge Plan - Plan Referrals: Ian Muse Jr, MD [Primary Care Provider] - Palliative Quality Palliative Quality: Screen for Code Status: NA, Screen for Goals of Care: NA, Screen for Pain: Yes, Screen for Nausea/Vomitting: Yes Code Status: 08/11/18 15:46 Resuscitation Status: Active [RES] Routine Comment: Resuscitation Status: DNR-Comfort Care
[2018-08-12] MEDS: *HR* LORazepam Oral Conc 2 MG/ML PO SCH ×3 (14:52→21:28)
[2018-08-12 20:10] VITALS: BP 83/60
[2018-08-13] MEDS ORDERED: Levofloxacin 750 MG/150 ML 750 MG/150 ML BAG IVPB SCH (12:00)
== END 2018-08-12 23:17 | disposition expired | DRG 951 ==
LOC: 2ANU 18:33
PROVIDERS: ADMIT Internal Medicine; ATTEND Internal Medicine